=== PATIENT | male | born 1965 | race Caucasian/White ===

== ENCOUNTER 2017-10-02 14:30 | Outpatient (RCR) | payer OTHER, SELFPAY | END 2017-10-26 11:03 | disposition home or self-care (01) | LOC: PT 14:30 | PROVIDERS: Family Provider Nurse Practitioner Family; PCP Nurse Practitioner Family; Visit Provider Nurse Practitioner Family | DX: M54.5 Low back pain (principal); G89.29 Other chronic pain | CPT/HCPCS: 97110; 97163 ==

== ENCOUNTER → 2018-10-07 10:06 | Outpatient (CLI) | payer OTHER, SELFPAY ==
[2018-10-07 11:28] LABS: Prostate Specific Ag Screen 0.6 ng/mL (0.0-4.0)
== END ==
PROVIDERS: Visit Provider Urology
DX: Z12.5 Encounter for screening for malignant neoplasm of prostate (principal)
CPT/HCPCS: 36415; G0103

== ENCOUNTER → 2019-10-24 13:57 | Outpatient (CLI) | payer MEDICAID, SELFPAY ==
[2019-10-24 16:20] LABS: Prostate Specific Ag Screen 0.7 ng/ml (0.0-4.0)
== END ==
PROVIDERS: Visit Provider Urology
DX: Z12.5 Encounter for screening for malignant neoplasm of prostate (principal)
CPT/HCPCS: 36415; G0103

== ENCOUNTER 2020-03-15 10:00 | Outpatient (RCR) | payer MEDICAID, SELFPAY | END 2020-03-29 15:00 | disposition home or self-care (01) | LOC: PT.CARL 10:00 | PROVIDERS: PCP Nurse Practitioner Family; Visit Provider Orthopaedic Surgery Adult Reconstructive Orthopaedic Surgery | DX: M25.561 Pain in right knee (principal) | CPT/HCPCS: 97010; 97014; 97110; 97163; G0283 ==

== ENCOUNTER → 2022-01-21 11:00 | Outpatient (CLI) | payer MEDICAID, SELFPAY ==
[2022-01-21 17:39] LABS: Basophils # 0.8 K/mm3 (0-0.2); Basophils % 13.4 % (0.1-2.0); Eosinophils # 0.1 K/mm3 (0.0-0.4); Eosinophils % 1.4 % (0.1-12.0); Hematocrit 56.4 % (42.0-52.0); Hemoglobin 15.2 g/dL (14.1-18.0); Lymphocytes # 1.8 K/mm3 (0.7-4.5); Lymphocytes % 28.9 % (10-50); Mean Corpuscular HGB Conc 26.9 g/dL (31.8-35.4); Mean Corpuscular Hemoglobin 32.2 pg (27.0-31.2); Mean Corpuscular Volume 119.5 fl (80-94); Mean Platelet Volume 25.7 fl (7.4-10.4); Monocytes # 0.4 K/mm3 (0.1-1.0); Monocytes % 6.7 % (1.7-9.3); Neutrophils # 3.9 K/mm3 (1.8-7.8); Platelet Count 189 K/mm3 (142-424); Red Blood Count 4.72 M/mm3 (4.60-6.20); White Blood Count 6.2 K/mm3 (4.8-10.8)
[2022-01-21 18:55] LABS: Hemoglobin A1C 5.7 % (4.0-6.0)
[2022-01-21 19:46] LABS: Creatinine,Urine Random 19 mg/dL (Not Estab.); Microalbumin < 6.000 mg/L (0-16.7)
[2022-01-21 21:09] LABS: Chloride 100 mmol/L (98-107); Sodium 141 mmol/L (136-145)
[2022-01-21 21:10] LABS: Potassium 4.1 mmoL/L (3.5-5.1)
[2022-01-21 21:12] LABS: Alanine Aminotransferase 20 U/L (12-78); Albumin Level 4.4 g/dl (3.5-5.0); Albumin/Globulin Ratio 1.8 (1.1-1.8); Alkaline Phosphatase 80 U/L (38-126); Anion Gap 14.1 mEq/L (5-15); Aspartate Amino Transferase 26 U/L (17-59); Bilirubin,Total 0.9 mg/dl (0.2-1.3); Blood Urea Nitrogen 11 mg/dl (9-20); Calcium 9.2 mg/dl (8.4-10.2); Carbon Dioxide 31 mmol/L (22.0-30.0); Cholesterol 250 mg/dl (140-200); Estimated Glomerular Filt Rate 88 ml/min (>60); GFR (African American) 106 ML/MIN (>60); Globulin 2.5 g/dL (1.3-3.2); Glucose 88 mg/dl (74-100); Total Protein,Serum 6.9 g/dl (6.3-8.2); Triglycerides 132 mg/dl (30-150); VLDL Cholesterol 26 mg/dL (0-40)
[2022-01-21 21:13] LABS: Chol/HDL Ratio 6.6 (1-3.5); HDL Cholesterol 38 mg/dl (40-60)
[2022-01-21 21:24] LABS: Direct LDL Cholesterol 184.14 mg/dL (100-129)
[2022-01-21 21:44] LABS: Thyroid Stimulating Hormone 1.16 uIU/mL (0.465-4.68)
== END ==
PROVIDERS: PCP Family Medicine; Visit Provider Family Medicine
DX: I10 Essential (primary) hypertension (principal); E11.9 Type 2 diabetes mellitus without complications; R53.83 Other fatigue; E78.5 Hyperlipidemia, unspecified; Z79.84 Long term (current) use of oral hypoglycemic drugs
CPT/HCPCS: 80053; 80061; 82043; 82570; 83036; 84443; 85025

== ENCOUNTER → 2022-07-31 23:31 | Outpatient (CLI) | payer MEDICAID, SELFPAY ==
[2022-07-31 17:22] LABS: Hemoglobin A1C 5.5 % (4.0-6.0)
== END ==
PROVIDERS: PCP Family Medicine; Visit Provider Family Medicine
DX: E11.9 Type 2 diabetes mellitus without complications (principal); Z79.84 Long term (current) use of oral hypoglycemic drugs
CPT/HCPCS: 83036

== ENCOUNTER → 2023-01-29 09:14 | Outpatient (CLI) | payer MEDICAID, SELFPAY ==
[2023-01-29 16:31] LABS: Chloride 103 mmol/L (98-107); Potassium 4.3 mmoL/L (3.5-5.1); Sodium 139 mmol/L (136-145)
[2023-01-29 16:33] LABS: Alanine Aminotransferase 24 U/L (12-78); Alkaline Phosphatase 62 U/L (38-126); Aspartate Amino Transferase 31 U/L (17-59); Bilirubin,Total 1.2 mg/dl (0.2-1.3); Blood Urea Nitrogen 12 mg/dl (9-20); Estimated Glomerular Filt Rate 88 ml/min (>60); GFR (African American) 106 ML/MIN (>60)
[2023-01-29 16:34] LABS: Albumin Level 4.3 g/dl (3.5-5.0); Anion Gap 9.3 mEq/L (5-15); Carbon Dioxide 31 mmol/L (22.0-30.0); Chol/HDL Ratio 3.6 (1-3.5); Cholesterol 122 mg/dl (140-200); Globulin 2.2 g/dL (1.3-3.2); Glucose 106 mg/dl (74-100); HDL Cholesterol 34 mg/dl (40-60); Total Protein,Serum 6.5 g/dl (6.3-8.2); Triglycerides 106 mg/dl (30-150); VLDL Cholesterol 21 mg/dL (0-40)
[2023-01-29 16:50] LABS: Basophils % 0.6 % (0.1-2.0); Eosinophils # 0.2 K/mm3 (0.0-0.4); Eosinophils % 3.7 % (0.1-12.0); Hematocrit 43.6 % (42.0-52.0); Hemoglobin 15.4 g/dL (14.1-18.0); Lymphocytes # 1.8 K/mm3 (0.7-4.5); Lymphocytes % 27.6 % (10-50); Mean Corpuscular HGB Conc 35.4 g/dL (31.8-35.4); Mean Corpuscular Hemoglobin 34.8 pg (27.0-31.2); Mean Corpuscular Volume 98.4 fl (80-94); Mean Platelet Volume 10.6 fl (7.4-10.4); Monocytes # 0.5 K/mm3 (0.1-1.0); Monocytes % 7.5 % (1.7-9.3); Neutrophils % 60.7 % (37.0-80.0); Platelet Count 167 K/mm3 (142-424); Red Blood Count 4.43 M/mm3 (4.60-6.20); Red Cell Distribution Width 13.2 % (11.5-17.5); White Blood Count 6.6 K/mm3 (4.8-10.8)
[2023-01-29 17:04] LABS: Thyroid Stimulating Hormone 1.48 uIU/mL (0.465-4.68)
[2023-01-29 17:39] LABS: Hemoglobin A1C 5.5 % (4.0-6.0)
[2023-01-30 19:58] LABS: Microalbumin/Creatinine Ratio 5.5
[2023-01-30 20:27] LABS: Creatinine,Urine Random 207 mg/dL (Not Estab.)
== END ==
PROVIDERS: PCP Nurse Practitioner Family; Visit Provider Nurse Practitioner Family
DX: E11.9 Type 2 diabetes mellitus without complications (principal); E78.5 Hyperlipidemia, unspecified; I10 Essential (primary) hypertension; Z79.84 Long term (current) use of oral hypoglycemic drugs; Z79.899 Other long term (current) drug therapy
CPT/HCPCS: 80053; 80061; 82043; 82570; 83036; 84443; 85025

== ENCOUNTER → 2023-03-20 10:54 | Outpatient (CLI) | payer MEDICAID, SELFPAY | PROVIDERS: PCP Nurse Practitioner Family; Visit Provider Physician Assistant | DX: R06.02 Shortness of breath; Z01.818 Encounter for other preprocedural examination | CPT/HCPCS: 93306 ==

== ENCOUNTER 2023-03-23 16:52 | Emergency (ER) | payer MEDICAID, SELFPAY ==
[2023-03-23 16:55] VITALS: BP 158/93; PULSE 69; RESP 18; TEMP 36.9; O2SAT 98; BMI 24.3
--- NOTE | 2023-03-23 18:11 | HMH.EDGENADL ---
Discharge Plan Disposition Patient Disposition: Home, Self-Care Prescriptions Prescriptions: No Action aspirin [Adult Low Dose Aspirin] 81 mg tablet,delayed release (DR/EC) 81 mg PO DAILY Ventolin HFA 90 mcg/actuation HFA aerosol inhaler 2 puff INHALATION Q4-6H PRN (Reason: COPD) cetirizine 10 mg tablet 10 mg PO DAILY PRN montelukast 10 mg tablet 10 mg PO DAILY fluticasone propionate [Flonase Allergy Relief] 50 mcg/actuation spray,suspension 2 spray intranasal DAILY Rx Instructions: administer into each nostril Aimovig Autoinjector 140 mg/mL auto-injector 140 mg SQ QMONTH sertraline [Zoloft] 50 mg tablet 50 mg PO DAILY Qty: 30 3RF rosuvastatin [Crestor] 20 mg tablet 20 mg PO DAILY Qty: 30 3RF trazodone 50 mg tablet 50 mg PO HS Qty: 30 3RF omega-3 acid ethyl esters 1 gram capsule 1 cap PO DAILY metoprolol succinate 50 mg tablet extended release 24 hr See Rx Instructions .ROUTE .COMPLEX Qty: 45 3RF Dose Instruction: TAKE 1&1/2 TABLETS BY MOUTH EVERY DAY Rx Instructions: TAKE 1&1/2 TABLETS BY MOUTH EVERY DAY metformin 500 mg tablet See Rx Instructions .ROUTE .COMPLEX Qty: 90 3RF Dose Instruction: 500 MG ORALLY DAILY FOR 90 DAYS Rx Instructions: 500 MG ORALLY DAILY FOR 90 DAYS omeprazole 40 mg capsule,delayed release(DR/EC) See Rx Instructions .ROUTE .COMPLEX Qty: 90 0RF Dose Instruction: TAKE 1 CAPSULE BY MOUTH EVERY DAY Rx Instructions: TAKE 1 CAPSULE BY MOUTH EVERY DAY hydroxyzine HCl 10 mg tablet See Rx Instructions .ROUTE .COMPLEX Qty: 60 1RF Dose Instruction: TAKE 1 TABLET BY MOUTH EVERY 8 HOURS NEEDED Rx Instructions: TAKE 1 TABLET BY MOUTH EVERY 8 HOURS NEEDED Referrals Follow up/Referrals: Chad Renee DO [Staff Physician] - See instructions (possible avascular necrosis) Stewart Santacruz MD [Primary Care Provider] - See instructions Activity Restrictions/Add. Instructions Additional Instructions/Restrictions: Your workup showed concern for something called avascular necrosis of the femoral heads. This needs to be followed up with Dr. Renee with orthopedic surgery. Please take Tylenol and ibuprofen as needed for pain. Please follow-up with your primary care provider. Please return to the emergency department if you develop any new or worsening symptoms or become concerned for your health. Clinical Impressions Clinical Impression: Avascular necrosis of femoral head Qualifiers: Laterality: right Qualified Code(s): M87.051 - Idiopathic aseptic necrosis of right femur Instructions Patient Instructions: DI for Low Back Pain Discharge ED Provider: Carlos Manuel Cody General Adult HPI General Chief complaint: Back Pain/Injury Stated complaint: Lower back and right leg pain,no injury Time Seen by Provider: 03/23/23 18:09 Mode of Arrival: Ambulatory Source of Information: Patient Limitations: No Limitations Description of Symptoms (Recalled from ER Triage Doc. by RN): pt is complaining of right lower back pain and right groin pain since this morning that is sharp in nature. pt has hx of hernia but not kidney stones History of Present Illness HPI narrative: 58-year-old male history as reported below presents with 2 days of right hip/groin/low back pain. Nothing like this happened for. Reports no trauma. Reports no urinary symptoms or fever. Is able to walk on it but with pain. Denies any numbness tingling or weakness. Related Data Home Medications Medication Instructions Recorded Confirmed albuterol sulfate 90 mcg/actuation 2 puff inhalation Q4-6H PRN COPD 10/07/18 03/09/23 aerosol inhaler (Ventolin HFA) aspirin 81 mg tablet,delayed 81 mg PO DAILY HEART 10/07/18 03/09/23 release (Adult Low Dose Aspirin) cetirizine 10 mg tablet 10 mg PO DAILY PRN 01/21/22 03/09/23 erenumab-aooe 140 mg/mL 140 mg SQ QMONTH 01/21/22 03/09/23 subcutaneous auto-injector
--- NOTE | 2023-03-23 18:18 | XR_ITS ---
PROCEDURE INFORMATION: Exam: XR Right Hip Exam date and time: 03/23/2023 6:54 PM Age: 58 years old Clinical indication: Hip pain; Right hip; Prior surgery; Surgery date: 6+ months; Surgery type: Old inguinal hernia repair. ; Additional info: Right hip pain, no known injury. Started early this morning. TECHNIQUE: Imaging protocol: Radiologic exam of the right hip. Views: 2 or 3 views hip with pelvis when performed. COMPARISON: No relevant prior studies available. FINDINGS: Bones/joints: No acute fracture or dislocation. Curvilinear sclerosis with adjacent lucencies along the superior aspects of both femoral heads. No femoral head collapse. Concerning for avascular necrosis. Additional workup recommended with MRI. Soft tissues: Unremarkable. IMPRESSION: 1. No acute fracture or dislocation. 2. Curvilinear sclerosis with adjacent lucencies along the superior aspects of both femoral heads. No femoral head collapse. Concerning for avascular necrosis. Additional workup recommended with MRI.
[2023-03-23 18:31] VITALS: BP 158/83; PULSE 59; O2SAT 96
[2023-03-23 18:40] LABS: Microscopic, Urine URINE MICROSCOPIC (MICROSCOPIC)
[2023-03-23 18:44] LABS: Appearance,Urine CLEAR (Clear); Bilirubin,Urine Negative (Negative); Blood, Urine Negative (Negative); Color,Urine YELLOW (Yellow); Glucose,Urine (UA) Negative (Negative); Ketones,Urine Negative (Negative); Leukocyte Esterase,Urine Negative (Negative); Nitrate,Urine Negative (Negative); Protein,Urine Negative (Negative); Specific Gravity, Urine 1.015 (1.005-1.030); Urobilinogen,Urine 0.2 EU/dl (0.2)
[2023-03-23 18:55] LABS: Squamous Epithelial Cell,Urine Occasional #/hpf (0-5)
--- NOTE | 2023-03-23 19:02 | PC.NURSE ---
pt to xray
--- NOTE | 2023-03-23 20:26 | CT_ITS ---
PROCEDURE INFORMATION: Exam: CT Abdomen And Pelvis With Contrast Exam date and time: 03/23/2023 9:12 PM Age: 58 years old Clinical indication: Pain and abnormal findings; Abnormal radiologic finding of the abdomen; Radiologic exam and body structure: XR hip; Abdominal pain; Other: R inguinal/low back pain; Additional info: R inguinal/low back pain, abnorm xray hip TECHNIQUE: Imaging protocol: Computed tomography of the abdomen and pelvis with contrast. Radiation optimization: All CT scans at this facility use at least one of these dose optimization techniques: automated exposure control; mA and/or kV adjustment per patient size (includes targeted exams where dose is matched to clinical indication); or iterative reconstruction. Contrast material: ISOVUE; Contrast volume: 75 ml; Contrast route: IV; REPORTING DATA: Count of CT and Cardiac NM exams in prior 12 months: This patient has received 0 known CTs and 0 known cardiac nuclear medicine studies in the 12 months prior to the current study. COMPARISON: CR XR HIP RT 2-3V W/PELVIS 03/23/2023 6:54 PM FINDINGS: Liver: Normal. No mass. Gallbladder and bile ducts: Normal. No calcified stones. No ductal dilation. Pancreas: Normal. No ductal dilation. Spleen: Normal. No splenomegaly. Adrenal glands: Normal. No mass. Kidneys and ureters: Normal. No hydronephrosis. Stomach and bowel: Unremarkable. No obstruction. No mucosal thickening. Appendix: No evidence of appendicitis. Intraperitoneal space: Unremarkable. No free air. No significant fluid collection. Vasculature: Unremarkable. No abdominal aortic aneurysm. Lymph nodes: Unremarkable. No enlarged lymph nodes. Urinary bladder: Unremarkable as visualized. Reproductive: Unremarkable as visualized. Bones/joints: As seen on earlier radiograph, there are serpiginous lucencies with sclerotic rim along the superior femoral heads, most likely avascular necrosis. No evidence of femoral head collapse. Soft tissues: Left fat containing inguinal hernia. Other findings: Previous granulomatous exposure. IMPRESSION: As seen on earlier radiograph, there are serpiginous lucencies with sclerotic rim along the superior femoral heads, most likely avascular necrosis.
[2023-03-23 20:36] LABS: Basophils # 0.1 K/mm3 (0-0.2); Basophils % 0.6 % (0.1-2.0); Eosinophils # 0.1 K/mm3 (0.0-0.4); Eosinophils % 1.1 % (0.1-12.0); Hematocrit 44.7 % (42.0-52.0); Hemoglobin 15.3 g/dL (14.1-18.0); Lymphocytes # 1.3 K/mm3 (0.7-4.5); Lymphocytes % 13.9 % (10-50); Mean Corpuscular HGB Conc 34.1 g/dL (31.8-35.4); Mean Corpuscular Hemoglobin 33.1 pg (27.0-31.2); Mean Corpuscular Volume 97.1 fl (80-94); Mean Platelet Volume 9.6 fl (7.4-10.4); Monocytes # 0.5 K/mm3 (0.1-1.0); Monocytes % 5.6 % (1.7-9.3); Neutrophils # 7.1 K/mm3 (1.8-7.8); Neutrophils % 78.8 % (37.0-80.0); Platelet Count 195 K/mm3 (142-424); Red Blood Count 4.61 M/mm3 (4.60-6.20); Red Cell Distribution Width 13.1 % (11.5-17.5)
[2023-03-23 20:52] LABS: Chloride 103 mmol/L (98-107)
[2023-03-23 20:53] LABS: Potassium 4.6 mmoL/L (3.5-5.1); Sodium 138 mmol/L (136-145)
[2023-03-23 20:55] LABS: Alanine Aminotransferase 22 U/L (12-78); Alkaline Phosphatase 83 U/L (38-126); Aspartate Amino Transferase 27 U/L (17-59); Blood Urea Nitrogen 13 mg/dl (9-20); Creatinine Clearance Estimated 103 mL/min (50-200); Estimated Glomerular Filt Rate 77 ml/min (>60); GFR (African American) 94 ML/MIN (>60)
[2023-03-23 20:56] LABS: Albumin Level 4.2 g/dl (3.5-5.0); Albumin/Globulin Ratio 1.8 (1.1-1.8); Anion Gap 7.6 mEq/L (5-15); Calcium 8.8 mg/dl (8.4-10.2); Carbon Dioxide 32 mmol/L (22.0-30.0); Globulin 2.4 g/dL (1.3-3.2); Glucose 111 mg/dl (74-100); Total Protein,Serum 6.6 g/dl (6.3-8.2)
[2023-03-23 22:33] VITALS: BP 152/102; PULSE 73; RESP 18; TEMP 36.7; O2SAT 96
== END 2023-03-23 22:35 | disposition home or self-care (01) ==
PROVIDERS: Emergency Provider Emergency Medicine; PCP Family Medicine
DX: M87.051 Idiopathic aseptic necrosis of right femur (principal); M54.50 Low back pain, unspecified; I20.9 Angina pectoris, unspecified; E11.9 Type 2 diabetes mellitus without complications; E78.5 Hyperlipidemia, unspecified; I10 Essential (primary) hypertension; F17.210 Nicotine dependence, cigarettes, uncomplicated
CPT/HCPCS: 73502; 74177; 80053; 81001; 85025; 96374; 99285; Q9967

== ENCOUNTER 2023-04-14 12:01 | Outpatient (CLI) | payer MEDICAID, SELFPAY ==
--- NOTE | 2023-04-14 | CA_ITS ---
APPROVED REPORT Exam: Pharmacologic Technologist: Harmony Mcclure, Ht: 6 ft 3 in Wt: 199 lbs BSA: 2.19 m2 HR: 60 bpm BP: 143/90 mmHg Rhythm: NSR Medical History Medical History: HTN, Hyperlipidemia, Smoking Medications: Omeprazole,,,,, Aspirin,,,,, Metformin,,,,, Trazadone,,,,, Flonase,,,,, Zoloft,,,,, Crestor,,,,, Albuterol,,,,, Montelukast,,,,, CetIRIZINE,,,,, OmeGA-3,,,,, Hydroxyzine HCI,,,,, Allergies: PCN Cardiac Risk Factors: HTN, Hyperlipidemia, Smoking Stress Test Details Test: LEXISCAN HR Resting HR: 57 bpm Max Heart Rate (APMHR): 164 bpm Max HR Achieved: 112 bpm Target HR (85% APMHR): 139 bpm % of APMHR: 68 Recovery HR: 77 bpm BP Resting BP: 143/90 mmHg Max BP: 169/100 mmHg Recovery BP: 150.0/89.0 mmHg ECG Resting ECG: NSR Stress ECG: No significant ST changes Arrhythmia: PVCs Clinical Exercise duration: 04:05 min Highest Stage Achieved: Exercise capacity: 1.0 METs Stress ECG Conclusion PT HAD DYSPNEA AND NAUSEA PVCS NO SIGNIFICANT ST CHANGES CONCLUSION: EKG PORTION OF THE TEST IS UNREMARKABLE DUE TO LEXISCAN INFUSION. MYOVIEW IMAGES ARE REPORTED SEPARATELY Test Summary REST 01:27 . . 57 . 143/ 90 . . Stage 1 . . . . . . . Myoview Injected Stage 1 . . . . . . . Shortness of Breath Stage 1 01:00 . . 95 . . . . Stage 2 . . . . . . . Nausea Stage 2 01:00 . . 90 . 135/ 85 . . Stage 3 01:00 . . 97 . . . . Stage 4 01:00 . . 87 . 169/100 . . Stage 4 01:05 . . 87 . 153/100 . Stop exercise at 04:05 RECOVERY 01:00 . . 81 . . . . RECOVERY 02:00 . . 76 . 145/ 96 . . RECOVERY 03:00 . . 82 . 146/ 89 . . RECOVERY 04:00 . . 80 . 145/ 89 . . RECOVERY 04:38 . . 78 . 150/ 89 . . Electronically signed by : Dina Duron MD 04/14/2023 18:09:20
[2023-04-14] MEDS: SODIUM CHLORIDE 0.9% 10ML SYR (RAD ONLY) 10 ML IV ×2 (01:35→12:10)
--- NOTE | 2023-04-14 12:02 | NM_ITS ---
APPROVED REPORT Exam: Nuclear Stress Test Indication: soa..pre-op Patient Location: Outpatient Stress Tech: Ahrmony Mcclure NM Tech:Loni Sherman ARRT, RT (R)(N) Ht: 6 ft 3 in Wt: 200 lbs HR: 60 bpm BP: 143/90 mmHg BSA: 2.19 m2 Rhythm: NSR TID: 1.10 BMI: 24.9 History: dyspnea, pre-op assessment Procedure: Patient received 0.4 mg of intravenous Lexiscan, resting heart rate 60 bpm, resting blood pressure 143/90 mmHg, with Lexiscan maximum heart rate achieved was 96 bpm which is 85 % of the maximum predicted heart rate and blood pressure was 121/79 mmHg. With Lexiscan, patient denied any complaint of chest pain. Cardiac Stress and Resting SPECT Images: Cardiac Stress and Resting SPECT images were obtained using technetium 99m Myoview 31.8 mCi stress and 10.62 mCi at rest. Resting and stress imaging in supine and prone positions demonstrate no evidence of fixed or reversible perfusion defects. Gated imaging demonstrates normal global and regional LV systolic function. LVEF is calculated at 52%. Conclusion: No evidence of fixed or reversible perfusion defects. Gated imaging demonstrates normal global and regional LV systolic function. LVEF is calculated at 52%. Electronically signed by : Dina Duron MD 04/14/2023 18:10:47
[2023-04-14] MEDS: REGADENOSON 0.4MG/5ML SYRINGE 0.400000000000000022 MG IV (12:10)
[2023-04-14] MEDS: ISOTOPE MYOVIEW (PER STUDY) 1 DOSE IV (14:05)
== END 2023-04-14 23:59 ==
LOC: RAD 12:02
PROVIDERS: PCP Family Medicine; Visit Provider Nurse Practitioner
DX: I20.89 Other forms of angina pectoris (principal); R06.09 Other forms of dyspnea; I10 Essential (primary) hypertension; E78.5 Hyperlipidemia, unspecified; Z72.0 Tobacco use
CPT/HCPCS: 78452; 93017; 93018; A9502; J2785

== ENCOUNTER 2023-04-23 12:43 | Outpatient (CLI) | payer MEDICAID, SELFPAY ==
--- NOTE | 2023-04-23 12:44 | MR_ITS ---
FINAL REPORT CLINICAL HISTORY: Rt Hip Pain FINDINGS: Multiplanar MR imaging of the right hip was performed without contrast. There is no evidence of fracture or dislocation. There is abnormal signal at the bilateral superior femoral heads consistent with avascular necrosis measuring up to 40 mm in AP dimension on the right and similar size on the left. No labral tear is identified. Right hip joint effusion is seen. There is mild edema adjacent to the greater trochanter, may represent greater trochanteric bursitis. The tendons are intact. The musculature is intact. No soft tissue mass or cyst is identified. IMPRESSION: Avascular necrosis of the superior femoral heads bilaterally. Findings may represent greater trochanteric bursitis. Reviewed, Interpreted and Dictated by Justus Payne III, MD Transcribed by Chen Betancourt Authenticated and [facility]
== END 2023-04-23 23:59 ==
LOC: RAD 12:44
PROVIDERS: PCP Family Medicine; Visit Provider Orthopaedic Surgery
DX: M87.051 Idiopathic aseptic necrosis of right femur (principal)
CPT/HCPCS: 73721

== ENCOUNTER 2023-07-28 16:51 | Outpatient (CLI) | payer MEDICAID, SELFPAY ==
[2023-07-28 17:43] LABS: Basophils # 0.1 K/mm3 (0-0.2); Basophils % 1.3 % (0.1-2.0); Eosinophils # 0.2 K/mm3 (0.0-0.4); Eosinophils % 2.3 % (0.1-12.0); Hematocrit 48.5 % (42.0-52.0); Lymphocytes # 1.4 K/mm3 (0.7-4.5); Lymphocytes % 20.1 % (10-50); Mean Corpuscular HGB Conc 32.9 g/dL (31.8-35.4); Mean Corpuscular Volume 100.1 fl (80-94); Monocytes # 0.5 K/mm3 (0.1-1.0); Monocytes % 6.6 % (1.7-9.3); Neutrophils # 4.8 K/mm3 (1.8-7.8); Neutrophils % 69.6 % (37.0-80.0); Platelet Count 211 K/mm3 (142-424); Red Blood Count 4.84 M/mm3 (4.60-6.20); Red Cell Distribution Width 13.1 % (11.5-17.5); White Blood Count 6.8 K/mm3 (4.8-10.8)
[2023-07-28 18:39] LABS: Hemoglobin A1C 5.9 % (4.0-6.0)
[2023-07-28 20:19] LABS: Alanine Aminotransferase 14 U/L (12-78); Albumin Level 4.2 g/dl (3.5-5.0); Albumin/Globulin Ratio 1.8 (1.1-1.8); Alkaline Phosphatase 78 U/L (38-126); Anion Gap 10.5 mEq/L (5-15); Aspartate Amino Transferase 23 U/L (17-59); Bilirubin,Total 1.1 mg/dl (0.2-1.3); Blood Urea Nitrogen 10 mg/dl (9-20); Calcium 9.8 mg/dl (8.4-10.2); Carbon Dioxide 30 mmol/L (22.0-30.0); Chloride 107 mmol/L (98-107); Chol/HDL Ratio 9.1 (1-3.5); Cholesterol 255 mg/dl (140-200); Estimated Glomerular Filt Rate 69 ml/min (>60); GFR (African American) 84 ML/MIN (>60); Globulin 2.3 g/dL (1.3-3.2); Glucose 107 mg/dl (74-100); HDL Cholesterol 28 mg/dl (40-60); Potassium 4.5 mmoL/L (3.5-5.1); Sodium 143 mmol/L (136-145); Total Protein,Serum 6.5 g/dl (6.3-8.2); Triglycerides 197 mg/dl (30-150); VLDL Cholesterol 39 mg/dL (0-40)
[2023-07-28 20:29] LABS: Direct LDL Cholesterol 154.81 mg/dL (100-129)
[2023-07-28 20:51] LABS: Thyroid Stimulating Hormone 1.74 uIU/mL (0.465-4.68)
== END 2023-07-28 23:59 | disposition home or self-care (01) ==
LOC: LAB.DROPOF 16:51
PROVIDERS: PCP Nurse Practitioner Family; Visit Provider Nurse Practitioner Family
DX: I10 Essential (primary) hypertension (principal); E78.5 Hyperlipidemia, unspecified; E11.9 Type 2 diabetes mellitus without complications; Z79.84 Long term (current) use of oral hypoglycemic drugs
CPT/HCPCS: 80053; 80061; 83036; 84443; 85025

== ENCOUNTER 2023-09-24 15:03 | Emergency (ER) | payer MEDICAID, SELFPAY ==
[2023-09-24] VITALS (7 sets, daily range): BP systolic 136–150; BP diastolic 89–97; PULSE 68–84; RESP 13–20; TEMP 36.7–36.8; O2SAT 94–98; BMI 22.5
--- NOTE | 2023-09-24 15:04 | ECG_ITS ---
APPROVED REPORT Exam: Resting ECG HR:72 bpm ECG Measurements Heart Rate 72 AXES AL 197 P 63 QRSd 102 QRS 71 QT 353 T 56 QTc 377 Conclusion SINUS RHYTHM NORMAL ECG Electronically signed by : MAXWELL PERSAUD, 09/24/2023 19:08:09
--- NOTE | 2023-09-24 15:11 | PC.NURSE ---
in room talking with patient at this time.
--- NOTE | 2023-09-24 15:13 | XR_ITS ---
FINAL REPORT CLINICAL HISTORY: cp L sided FINDINGS: SINGLE-VIEW CHEST The heart size is normal. The mediastinum is normal. There is mild right base atelectasis or scar. There is no pneumothorax. IMPRESSION: Right base atelectasis versus scar. Reviewed, Interpreted and Dictated by Justus Payne III, MD Transcribed by Chen Betancourt Authenticated and [facility]
--- NOTE | 2023-09-24 15:17 | HMH.EDCP ---
Discharge Plan Disposition Patient Disposition: Home, Self-Care Chief Complaint: Chest Pain Prescriptions Prescriptions: No Action aspirin [Adult Low Dose Aspirin] 81 mg tablet,delayed release (DR/EC) 81 mg PO DAILY Ventolin HFA 90 mcg/actuation HFA aerosol inhaler 2 puff INHALATION Q4-6H PRN (Reason: COPD) cetirizine 10 mg tablet 10 mg PO DAILY PRN montelukast 10 mg tablet 10 mg PO DAILY fluticasone propionate [Flonase Allergy Relief] 50 mcg/actuation spray,suspension 2 spray intranasal DAILY Rx Instructions: administer into each nostril sertraline [Zoloft] 50 mg tablet 50 mg PO DAILY Qty: 30 3RF rosuvastatin [Crestor] 20 mg tablet 20 mg PO DAILY Qty: 30 3RF trazodone 50 mg tablet 50 mg PO HS Qty: 30 3RF omega-3 acid ethyl esters 1 gram capsule 1 cap PO DAILY cyclobenzaprine 5 mg tablet 5 mg PO BID PRN (Reason: muscle spasm) Qty: 20 0RF loratadine 10 mg tablet 10 mg PO DAILY Qty: 30 2RF metformin 500 mg tablet See Rx Instructions .ROUTE .COMPLEX Qty: 90 3RF Dose Instruction: 500 MG ORALLY DAILY FOR 90 DAYS Rx Instructions: 500 MG ORALLY DAILY FOR 90 DAYS metoprolol succinate 50 mg tablet extended release 24 hr See Rx Instructions .ROUTE .COMPLEX Qty: 45 3RF Dose Instruction: TAKE 1&1/2 TABLETS BY MOUTH EVERY DAY Rx Instructions: TAKE 1&1/2 TABLETS BY MOUTH EVERY DAY hydroxyzine HCl 10 mg tablet See Rx Instructions .ROUTE .COMPLEX Qty: 60 1RF Dose Instruction: TAKE 1 TABLET BY MOUTH EVERY 8 HOURS NEEDED Rx Instructions: TAKE 1 TABLET BY MOUTH EVERY 8 HOURS NEEDED omeprazole 40 mg capsule,delayed release(DR/EC) See Rx Instructions .ROUTE .COMPLEX Qty: 90 0RF Dose Instruction: TAKE 1 CAPSULE BY MOUTH EVERY DAY Rx Instructions: TAKE 1 CAPSULE BY MOUTH EVERY DAY Referrals Follow up/Referrals: Bryan Carlisle MD [Staff Physician] - See instructions Activity Restrictions/Add. Instructions Additional Instructions/Restrictions: At this time it was felt you are safe to be discharged home from the emergency department. If new or worsening symptoms please not hesitate to return for continued evaluation and call and schedule an appoint with Dr. Carlisle as soon as you are able. Clinical Impressions Clinical Impression: Chest pain Discharge ED Provider: Marky Graff HPI General Chief Complaint: Chest Pain Stated Complaint: chest pain Time Seen by Provider: 09/24/23 15:05 History of Present Illness HPI narrative: Patient is a 58-year-old male with past medical history of hypertension, hyperlipidemia, previous chest pain who presents emergency department for evaluation of chest pain. Onset was acute, occurring 4 days ago, waxing and waning however persists, seems to be better in certain positions than others, radiates from his left chest through to his left shoulder blade. No cough, no trauma, no other acute complaints at this time. Related Data Home Medications Medication Instructions Recorded Confirmed albuterol sulfate 90 mcg/actuation 2 puff inhalation Q4-6H PRN COPD 10/07/18 07/28/23 aerosol inhaler (Ventolin HFA) aspirin 81 mg tablet,delayed 81 mg PO DAILY HEART 10/07/18 07/28/23 release (Adult Low Dose Aspirin) cetirizine 10 mg tablet 10 mg PO DAILY PRN 01/21/22 07/28/23 fluticasone propionate 50 2 spray intranasal DAILY 01/21/22 07/28/23 mcg/actuation nasal spray,suspension (Flonase Allergy Relief) montelukast 10 mg tablet 10 mg PO DAILY 01/21/22 07/28/23 omega-3 acid ethyl esters 1 gram 1 cap PO DAILY 01/29/23 07/28/23 capsule Previous Rx's Medication Instructions Recorded rosuvastatin 20 mg tablet (Crestor) 20 mg PO DAILY #30 tabs 11/19/22 sertraline 50 mg tablet (Zoloft) 50 mg PO DAILY #30 tabs 11/19/22 trazodone 50 mg tablet 50 mg PO HS #30 tabs 11/19/22 metformin 500 mg tablet See Rx Instructions .Route 12/17/22 .COMPLEX #90 tabs metoprolol succinate 50 mg See Rx Instructions .Route 03/30/23 tablet,extended release 24 hr .COMPLEX #45 tabs cyclobenzaprine 5 mg tablet 5 mg PO BID PRN muscle spasm #20 04/02/23 tabs loratadine 10 mg tablet 10 mg PO DAILY #30 tabs 05/28/23 hydroxyzine HCl 10 mg tablet See Rx Instructions .Route 06/17/23 .COMPLEX #60 tabs omeprazole 40 mg capsule,delayed See Rx Instructions .Route 09/09/23 release .COMPLEX #90 caps Allergies Allergy/AdvReac Type Severity Reaction Status Date / Time penicillin G Allergy Mild I-RASH Verified 07/28/23 08:47 [facility] Disclaimer: The information contained in this section may have been updated after the patient was seen, as this information can be updated by other users. Medical History Encounter for pre-operative cardiovascular clearance Atypical angina Exertional dyspnea Depression Hyperlipidemia Migraines Hypertension Diabetes mellitus Surgical History History of colonoscopy Hx of cardiac cath H/O endoscopy History of placement of ear tubes H/O hernia repair H/O right knee surgery Family History Mother Cancer Social History Smoking Status: Never smoker years smoked: 40 alcohol intake: never substance use type: marijuana current occupational status: disabled Travel in the last 8 weeks: None household members: children housing: apartment ROS Obtained: Yes Systems reviewed as appropriate & no additional complaints except as documented Physical Exam General General appearance: alert and in no apparent distress Head Head exam: atraumatic and normocephalic Eye Eye exam: Present PERRL ENT ENT exam: Present mucous membranes moist Neck Neck exam: Present normal inspection Chest Chest inspection: Present normal inspection and symmetric chest wall rise Respiratory Respiratory exam: Present normal lung sounds bilaterally; Absent respiratory distress Cardiovascular Cardiovascular exam: Present regular rate and normal rhythm Abdominal Exam Abdominal exam: Present soft; Absent tenderness Extremities Exam Extremities exam: Present normal inspection Neurological Exam Neurological exam: Present alert Psychiatric Psychiatric exam: Present normal affect Skin Skin exam: Present warm and dry HEART Score HEART Score HEART Score assessment performed?: Yes History (anamnesis): Moderately suspicious ECG: Normal Age: 45-65 years Risk factors: Atherosclerosis history Troponin: </= normal limit HEART Score: 4 Critical Care Critical Care Time Critical Care Time: No Medical Decision Making [place] Inquiry Pt receiving controlled substance: No Vital Signs Vital Signs: 09/24/23 15:08 09/24/23 15:30 09/24/23 16:00 Temperature 98.2 F Temperature Source Oral Pulse Rate 70 Pulse Rate [Left Radial] 83 Respiratory Rate 20 15 18 Blood Pressure 148/95 H 147/94 H Blood Pressure [Right Arm] 142/91 H Blood Pressure Mean [Right Arm] 108 02 Sat by Pulse Oximetry 97 94 L 96 Oxygen Delivery Method Room Air 09/24/23 16:30 09/24/23 17:00 09/24/23 17:30 Temperature Temperature Source Pulse Rate 76 69 68 Pulse Rate [Left Radial] Respiratory Rate 18 13 15 Blood Pressure 150/97 H 136/90 143/93 H Blood Pressure [Right Arm] Blood Pressure Mean [Right Arm] 02 Sat by Pulse Oximetry 98 97 95 Oxygen Delivery Method Lab Data Labs: Lab Results 09/24/23 15:10: WBC 7.1, RBC 4.64, Hgb 15.4, Hct 46.4, MCV 100.1 H, MCH 33.3 H, MCHC 33.2, RDW 13.3, Plt Count 203, MPV 8.5, Neut % (Auto) 73.8, Lymph % (Auto) 19.3, [place] % (Auto) 5.1, Eos % (Auto) 0.4, Baso % (Auto) 1.4, Neut # (Auto) 5.3, Lymph # (Auto) 1.4, [place] # (Auto) 0.4, Eos # (Auto) 0.0, Baso # (Auto) 0.1, D-Dimer 0.35, Sodium 139, Potassium 4.1, Chloride 103, Carbon Dioxide 28, Anion Gap 12.1, BUN 12, Creatinine 1.00, Estimated Creat Clear 95, Estimated GFR 77, Est GFR ( Amer) 94, Glucose 109 H, Calcium 9.6, Total Bilirubin 1.4 H, AST 26, ALT 21, Alkaline Phosphatase 62, Troponin I < 0.01, Total Protein 7.1, Albumin 4.5, Globulin 2.6, Albumin/Globulin Ratio 1.7 09/24/23 17:11: Troponin I < 0.01 09/24/23 15:10 09/24/23 15:10 Response Orders (Tests/Meds): ED MEDICATIONS Discontinued Medications Generic Name Dose Route Start Last Admin Trade Name Freq PRN Reason Stop Dose Admin Aspirin 324 mg 09/24/23 15:13 09/24/23 15:18 Aspirin 81mg Chewable Tablet PO 09/24/23 15:14 Not Given ONCE ONE ORDERS Category Date Time Status CXR --portable [XR chest portable] Stat Exams 09/24/23 15:13 Taken CBC w/Auto Diff [Complete Blood Count Auto Diff] Stat Lab 09/24/23 15:10 Completed CMP [Comprehensive Metabolic Panel] Stat Lab 09/24/23 15:10 Completed D-Dimer Stat Lab 09/24/23 15:10 Completed Trop I [Troponin I] Stat Lab 09/24/23 15:10 Completed Troponin I Q3H Lab 09/24/23 17:11 Completed Troponin I Q3H Lab 09/24/23 21:15 Ordered ECG Data Tracing #1: ECG Narrative: Independently interpreted by me, rate 72, rhythm is regular, axis is normal, no ST elevation in anatomical contiguous leads, QTc 377. MDM Narrative Medical Decision Narrative: In summary patient is a 58-year-old male past medical history described above who presents emergency department for evaluation of chest pain. Patient is hemodynamically stable nontoxic-appearing upon arrival, afebrile. Differential diagnosis includes ACS, musculoskeletal chest pain, aortic dissection, among others. Workup be conducted with hematologic labs, chest x-ray, EKG, serial troponins, D-dimer. Initial inventions include aspirin. Initial workup reviewed by me, hematologic labs are nonactionable, initial troponin undetectably low. D-dimer excludes aortic dissection per ADDRS rule. Chest x-ray informally interpreted by me, no dense lobar opacities or large pneumothorax. The patient was placed in observation status at 1643. Medical necessity for observational status is serial troponins. The patient was provided serial reevaluations and cardiac monitoring while awaiting results. Serial troponins are nonactionable. Upon repeat evaluation patient was hemodynamically stable and resting in bed. Patient is appropriate for discharge with rapid outpatient follow-up with cardiology and was given return precautions. Total time in observation 1 hour and 13 minutes.
[2023-09-24 15:25] LABS: Basophils # 0.1 K/mm3 (0-0.2); Basophils % 1.4 % (0.1-2.0); Eosinophils % 0.4 % (0.1-12.0); Hematocrit 46.4 % (42.0-52.0); Hemoglobin 15.4 g/dL (14.1-18.0); Lymphocytes # 1.4 K/mm3 (0.7-4.5); Lymphocytes % 19.3 % (10-50); Mean Corpuscular HGB Conc 33.2 g/dL (31.8-35.4); Mean Corpuscular Hemoglobin 33.3 pg (27.0-31.2); Mean Corpuscular Volume 100.1 fl (80-94); Mean Platelet Volume 8.5 fl (7.4-10.4); Monocytes # 0.4 K/mm3 (0.1-1.0); Monocytes % 5.1 % (1.7-9.3); Neutrophils # 5.3 K/mm3 (1.8-7.8); Neutrophils % 73.8 % (37.0-80.0); Platelet Count 203 K/mm3 (142-424); Red Blood Count 4.64 M/mm3 (4.60-6.20); Red Cell Distribution Width 13.3 % (11.5-17.5); White Blood Count 7.1 K/mm3 (4.8-10.8)
[2023-09-24 15:29] LABS: Alanine Aminotransferase 21 U/L (12-78); Albumin Level 4.5 g/dl (3.5-5.0); Albumin/Globulin Ratio 1.7 (1.1-1.8); Alkaline Phosphatase 62 U/L (38-126); Anion Gap 12.1 mEq/L (5-15); Aspartate Amino Transferase 26 U/L (17-59); Bilirubin,Total 1.4 mg/dl (0.2-1.3); Blood Urea Nitrogen 12 mg/dl (9-20); Calcium 9.6 mg/dl (8.4-10.2); Carbon Dioxide 28 mmol/L (22.0-30.0); Chloride 103 mmol/L (98-107); Creatinine Clearance Estimated 95 mL/min (50-200); Estimated Glomerular Filt Rate 77 ml/min (>60); GFR (African American) 94 ML/MIN (>60); Globulin 2.6 g/dL (1.3-3.2); Glucose 109 mg/dl (74-100); Potassium 4.1 mmoL/L (3.5-5.1); Sodium 139 mmol/L (136-145); Total Protein,Serum 7.1 g/dl (6.3-8.2)
[2023-09-24 15:34] LABS: D-Dimer 0.35 ug/mL (0.0-0.5)
[2023-09-24 15:56] LABS: Troponin I < 0.01 ng/ml (0.00-0.034)
[2023-09-24 17:51] LABS: Troponin I < 0.01 ng/ml (0.00-0.034)
== END 2023-09-24 18:12 | disposition home or self-care (01) ==
PROVIDERS: Emergency Provider Emergency Medicine; PCP Family Medicine
DX: R07.89 Other chest pain (principal); I10 Essential (primary) hypertension; E78.5 Hyperlipidemia, unspecified; E11.9 Type 2 diabetes mellitus without complications; F33.9 Major depressive disorder, recurrent, unspecified; Z79.84 Long term (current) use of oral hypoglycemic drugs
CPT/HCPCS: 71045; 80053; 84484; 85025; 85378; 93005; 99284

== ENCOUNTER 2023-09-29 18:00 | Outpatient (CLI) | payer MEDICAID, SELFPAY ==
[2023-09-30 14:13] LABS: HIV (1&2) Antibody Rapid NONREACTIVE
[2023-10-01 06:12] LABS: HCV Ab Non Reactive (Non Reactive)
== END 2023-09-29 23:59 | disposition home or self-care (01) ==
LOC: LAB.DROPOF 09-30 08:17
PROVIDERS: PCP Nurse Practitioner Family; Visit Provider Nurse Practitioner Family
DX: Z11.59 Encounter for screening for other viral diseases (principal)

== ENCOUNTER 2023-10-07 09:51 | Outpatient (CLI) | payer MEDICAID, SELFPAY ==
--- NOTE | 2023-10-07 09:53 | XR_ITS ---
FINAL REPORT CLINICAL HISTORY: lt shoulder pain FINDINGS: Two views show no evidence of acute displaced fracture or dislocation of the visualized bony architecture. There are mild degenerative changes of the glenohumeral joint. IMPRESSION: Mild degenerative changes of the glenohumeral joint. Reviewed, Interpreted and Dictated by Martha Tompkins MD Transcribed by Chen Betancourt Authenticated and [facility]
== END 2023-10-07 23:59 | disposition home or self-care (01) ==
LOC: RAD 09:51
PROVIDERS: PCP Family Medicine; Visit Provider Physician Assistant
DX: M25.512 Pain in left shoulder (principal)
CPT/HCPCS: 73030

== ENCOUNTER 2023-10-29 11:30 | Outpatient (CLI) | payer MEDICAID, SELFPAY ==
[2023-10-29 11:33] LABS: MANUAL DIFFERENTIAL MANUAL DIFFERENTIAL (MANUAL DIFF)
[2023-10-29 12:23] LABS: Basophils # 0.1 K/mm3 (0-0.2); Basophils % 1.2 % (0.1-2.0); Eosinophils # 0.4 K/mm3 (0.0-0.4); Eosinophils % 5.8 % (0.1-12.0); Hematocrit 42.9 % (42.0-52.0); Hemoglobin 14.6 g/dL (14.1-18.0); Lymphocytes # 1.7 K/mm3 (0.7-4.5); Lymphocytes % 22.1 % (10-50); Mean Corpuscular Hemoglobin 33.3 pg (27.0-31.2); Mean Platelet Volume 8.5 fl (7.4-10.4); Monocytes # 0.6 K/mm3 (0.1-1.0); Monocytes % 8.4 % (1.7-9.3); Neutrophils # 4.7 K/mm3 (1.8-7.8); Neutrophils % 62.5 % (37.0-80.0); Platelet Count 239 K/mm3 (142-424); Red Blood Count 4.37 M/mm3 (4.60-6.20); Red Cell Distribution Width 13.6 % (11.5-17.5); White Blood Count 7.5 K/mm3 (4.8-10.8)
[2023-10-29 12:47] LABS: Alanine Aminotransferase 27 U/L (12-78); Albumin Level 4.5 g/dl (3.5-5.0); Alkaline Phosphatase 66 U/L (38-126); Anion Gap 10.6 mEq/L (5-15); Aspartate Amino Transferase 26 U/L (17-59); Bilirubin,Indirect 1.3 mg/dL (0.0-0.9); Bilirubin,Total 1.3 mg/dl (0.2-1.3); Bilirubin,Unconjugated 1.5 mg/dL (0.0-1.1); Blood Urea Nitrogen 15 mg/dl (9-20); Calcium 10.2 mg/dl (8.4-10.2); Carbon Dioxide 32 mmol/L (22.0-30.0); Chloride 101 mmol/L (98-107); Chol/HDL Ratio 3.4 (1-3.5); Cholesterol 175 mg/dl (140-200); Estimated Glomerular Filt Rate 63 ml/min (>60); GFR (African American) 76 ML/MIN (>60); Glucose 85 mg/dl (74-100); HDL Cholesterol 52 mg/dl (40-60); Potassium 4.6 mmoL/L (3.5-5.1); Sodium 139 mmol/L (136-145); Total Protein,Serum 6.8 g/dl (6.3-8.2); Triglycerides 174 mg/dl (30-150); VLDL Cholesterol 35 mg/dL (0-40)
[2023-10-29 12:58] LABS: Direct LDL Cholesterol 78.88 mg/dL (100-129)
[2023-10-29 14:34] LABS: Eosinophils % 8 % (0-3); Lymphocytes % 29 % (10-50); Monocytes % 8 % (2-9); Neutrophils % 55 % (42-76); Total Cells Counted 100
[2023-10-29 14:35] LABS: Platelet Estimate Normal; RBC Morphology Normal
== END 2023-10-29 23:59 | disposition home or self-care (01) ==
LOC: LAB 11:30
PROVIDERS: PCP Family Medicine; Visit Provider Physician Assistant
DX: R07.9 Chest pain, unspecified (principal); I20.89 Other forms of angina pectoris; I10 Essential (primary) hypertension
CPT/HCPCS: 36415; 80048; 80061; 80076; 85007; 85014; 85018; 85048; 85049

== ENCOUNTER 2023-11-03 08:25 | Outpatient (CLI) | payer MEDICAID, SELFPAY ==
[2023-11-02 13:15] VITALS: BMI 24.6
[2023-11-03] VITALS (12 sets, daily range): BP systolic 73–149; BP diastolic 40–98; PULSE 55–71; RESP 16–26; TEMP 36.5; O2SAT 90–100; BMI 24.6
--- NOTE | 2023-11-03 08:25 | CT_ITS ---
APPROVED REPORT Bisque Cleaner: CLINICAL INDICATION Chest Pain TECHNIQUE Image Acquisition: A 128 slice MDCT scanner ([employer] View) was used for data acquisition. A noncontrast coronary calcium scan was performed. A CT attenuation threshold of 130 Hounsfield units (HU) was used for the detection of calcium in contiguous voxels of 1 sq mm in area to be counted as individual lesions. Bolus tracking in the ascending aorta with a threshold of 180 HU was performed. Immediately afterwards, ECG synchronized cardiac CT was then performed from the cardiac base to apex using retrospective gating with ECG tube current modulation. A total of 85 mL of Isovue 370 mg/mL contrast medium was administered at 5 mL/sec followed by a saline flush using a biphasic injection protocol. A tube voltage of 120 KVp was used. The patient received the following medications prior to the cardiac CT. 25 mg of oral metoprolol 0.8 mg of sublingual nitroglycerin The average heart rate at the time of acquisition was 61 bpm and regular. Image Reconstruction Transaxial images were reconstructed at 0.67 mm slide thickness. Data was reviewed interactively on an advanced workstation capable of 2 and 3-dimensional displays in all conventional reconstruction formats, including multiplanar reformations, maximum intensity projections, curved multiplanar reformations, and volume rendered reconstructions. When applicable, selected routine images describing the relevant coronary anatomy and pathology were saved and sent to PACS. Complications None Technical Quality Overall image quality was good. Coronary artery opacification was adequate. Total DLP (Dose-Length Product) is 1730.7 mGy-cm. The reported value represents the total of one or more individual components during the CT acquisition of this date and at this time, and as such, the same value may appear in more than one CT report depending on the interpreting/reporting physicians. COMPARISON None FINDINGS CT Coronary Calcium Scoring LMA (Left Main Artery) = 0 LAD (Left Anterior Descending) = 0 LCX (Left Coronary Circumflex) = 0 RCA (Right Coronary Artery) = 0 Total Calcium Score = 0 using the AJ-130 method. The interpretation of the calcium heart score is based on the following continuum*: 0 = no calcified plaque detected (risk of coronary artery disease is very low ??? less than 5%) 1-10 = calcium detected in extremely minimal levels (risk of coronary diseases is still low ??? less than 10%) 11-100 = mild levels of plaque detected with certainty (mild or minimal narrowing of heart arteries is likely) 101-400 = definite,at least moderate levels of plaque detected (relatively high risk of a heart attack within 3-5 years) >401-999 = extensive levels of plaque detected (high risk of heart attack, high levels of vascular disease are present, high likelihood of at least one significant coronary narrowing) *The calcium heart score quantifies the burden of coronary calcification/plaque in the coronary arteries. The calcium heart score is not able to evaluate the presence or burden of non-calcified (i.e. soft) plaque. There is no identifiable calcification in the aortic valve, mitral annulus or mitral valve, pericardium, or myocardium. Coronary CT Angiography The coronary arterial system is right dominant. Quantitative Stenosis Grading: Left Main (LM): The left main originates normally from the left sinus of Valsalva. The LM bifurcates into the left anterior descending artery and left circumflex artery. The LM is patent with no evidence of atherosclerosis. Left Anterior Descending (LAD) and Diagonal Branches: The LAD gives off 3 diagonal branch(es). The LAD and its branches are patent with no evidence of atherosclerosis. There is no evidence of LAD-myocardial bridge. Left Circumflex (LCX) and Obtuse Marginals (OM): The LCX gives off 1 Obtuse Marginal (OM) branch(es). There is one region of concern involving noncalcified plaque at the ostial LCx, with up to 70-90% luminal stenosis present. This region, however, is difficult to visualize in the setting of overlapping vessels. Right Coronary Artery (RCA): The RCA originates normally from the right sinus of Valsalva. The RCA gives off a posterior descending artery (PDA) and posterolateral (PL) branches. The RCA and its branches are patent with no evidence of atherosclerosis. Non-Coronary Cardiac Findings: Analysis of the left ventricular (LV) structure and function was performed after 3-D reconstruction of the LV from axial images, with user-corrected automatic contouring for assessment of LV volumes and user-defined reconstruction from oblique planes for measurement of 3-D cardiac structure and function. -The left ventricle systolic function is normal. -There is no left atrial appendage filling defect. Two right pulmonary veins and two left pulmonary veins drain normally into the left atrium. -No pericardial thickening or calcification. -Central and branch pulmonary arteries in the [id number] are unremarkable. -Thoracic aorta within the visualized thoracic aortic-branches in the [id number] is unremarkable. Extracardiac Structures No significant extra-cardiac findings. Note, however, that this study is focused on the cardiac findings. IMPRESSION -Absence of coronary calcification with an Agatston score = 0 using the AJ-130 method. -There is one region of concern involving noncalcified plaque at the ostial LCx, with up to 70-90% luminal stenosis present at the level of bifurcation. This region, however, is difficult to visualize in the setting of overlapping vessels. -CAD-RADS 4A. Management recommendations per ACC/AHA guidelines*, as clinically appropriate. *Recommendations: CAD RADS 0: Reassurance. Consider non-atherosclerotic causes of chest pain. CAD RADS 1: Consider non-atherosclerotic causes of chest pain. Consider preventive therapy and risk factor modification. CAD RADS 2: Consider non-atherosclerotic causes of chest pain. Consider preventive therapy and risk factor modification, particularly for patients with nonobstructive plaque in multiple segments. CAD RADS 3: Consider further functional testing. Consider symptom-guided anti-ischemic and preventive pharmacotherapy as well as risk factor modification per published guideline statements. CAD RADS 4A: Consider further functional testing or invasive coronary angiography with revascularization per published guideline statements. Consider symptom-guided anti-ischemic and preventive pharmacotherapy as well as risk factor modification per published guideline statements. CAD RADS 4B: Invasive coronary angiography recommended with revascularization per published guideline statements. Consider symptom-guided anti-ischemic and preventive pharmacotherapy as well as risk factor modification per published guideline statements. CAD RADS 5: Consider invasive angiography and/or viability assessment with revascularization per published guideline statements. Consider symptom-guided anti-ischemic and preventive pharmacotherapy as well as risk factor modification per published guideline statements. CRITICAL RESULT None COMMUNICATION Per this written report The coronary and cardiac findings of this CCTA were reviewed, reported, and signed by Yovani Duron MD (Motorcycle Deliverer) Conclusion Electronically signed by : Dina Duron MD 11/05/2023 14:02:53
[2023-11-03] MEDS: METOPROLOL TARTRATE 25MG TABLET *IVABRADINE+METOPROLOL REGIMINE 25 MG PO (08:48)
[2023-11-03 09:12] LABS: POC Glucose,Bedside 94 (70-110)
[2023-11-03] MEDS: NITROGLYCERIN 0.4MG SL TABLET 0.8 MG SL (09:42)
[2023-11-03] MEDS: 0.9 % SODIUM CHLORIDE 50 ML VIAL 40 ML IV (10:12)
[2023-11-03] MEDS: IOPAMIDOL-370 (76%);100ML BOTTLE 85 ML IV (10:12)
[2023-11-03] MEDS: SODIUM CHLORIDE 0.9% 10ML SYR (RAD ONLY) 10 ML IV (10:12)
--- NOTE | 2023-11-03 10:54 | PC.NURSE ---
patient transported to CT scanner at 0938. pre procedure BP 145/94. Nitroglycerin .8mg given sublingual per protocol. post nitroglycerin BP 149/98. 0951 patient's breathing appeared labored with RR 24. patient's diaphoretic and states he is dizzy. BP 73/40. patient remained alert and oriented. color appears jackson. patient's legs raised. glucose checked which was 104. 0953 BP 116/53. patient states symptoms resolved. RN to monitor patient post procedure. VS and symptoms now stable and discharged at 1037 with instructions to monitor for hypotension
== END 2023-11-03 10:37 | disposition home or self-care (01) ==
PROVIDERS: PCP Family Medicine; Visit Provider Physician Assistant
DX: R07.9 Chest pain, unspecified (principal); I10 Essential (primary) hypertension; E78.5 Hyperlipidemia, unspecified; E11.9 Type 2 diabetes mellitus without complications; Z79.84 Long term (current) use of oral hypoglycemic drugs
CPT/HCPCS: 75574; 82962; Q9967

== ENCOUNTER 2023-11-16 14:00 | Outpatient (RCR) | payer MEDICAID, SELFPAY ==
--- NOTE | 2023-10-19 10:48 | HMH.PTOPEV ---
PT Outpatient Evaluation Rehab PT Outpatient Evaluation Start: 10/19/23 09:58 Freq: Status: Active Protocol: Document 10/19/23 09:58 PDESEROUX (Rec: 10/19/23 10:48 PDESEROUX Desktop) E-signed By Fareed Judge, PT Outpatient Therapy Subjective History Subjective History Pt. is a 58 year old male who presents to [facility] Outpatient Physical Therapy Services in [place] for the initial evaluation this date( 10/19/23) w/ c/o subacute and constant LUE shldr. and arm numbness, P!, and digit drawing of insidious onset 1 month ago. Pt. will c/o intermittent digit drawing where pt. has to use opposite extremity to get them unstuck . Pt. reports symptoms will worsen w/ turning his head or playing on his phone. Pt. reports having some symptom relief w/ positioning of the LUE. Pt. also reports having some symptom relief w/ MHP. Recent diagnostic imaging( radiograph) LUE shldr. indicates GH jt. OA per pt. report. Pt. denies having injections for current complaint. Current medications include Aspirin, Metoprolol, Crestor, Sertraline, Omeprazole, Furosemide, Trazodone, Tramadol. PMH includes S/P RLE knee ATS surgery, cardiac cath., hernia repair, COPD, depression disorder, migraines, and insomnia. New diagnosis of cancer in past 12 No months? Chief Complaint Pain,Stiff,Paresthesia, Weakness,Decreased Net Lead Architect Strength Symptom Type Ache,Throb,Numbness,Tingling, Shooting Symptoms Relieved By Rest/Positioning,Heat,Ice Symptoms Aggravated By Bending/Stooping,Physical Activity,Twisting,Lifting Prior Functional Limitations None Current Functional Limitations Reaching,Lifting,Housework, Desk Work/Reading,Recreation Activity Symptom Description Constant and Continuous, Activity Dependent Level of pain today (0-10) 4 Pain scale - at its best (0-10) 3 Pain scale - at its worst (0-10) 6 Cervical Eval Palpation Cervical Muscles L Cervical Paraspinal,L CT Junction,L Upper Trapezius Cervical/Thoracic Palpation Findings Tenderness,Muscle Guarding Posture Head/C-Spine Posture Sitting Position Neutral Position Head/C-Spine Posture Standing Position Neutral Position Flexibility Deficits Upper Trapezius Muscle Length (L) Severe Tightness Levaetor Scapulae Muscle Length (L) Severe Tightness Pectoralis Major Muscle Length (L) Severe Tightness Pectoralis Minor Muscle Length (L) Severe Tightness Passive Joint Mobility Cervical PIVM Dec: R C3/4 L C3/4 R C4/5 L C4/5 R C5/6 L C5/6 R C6/7 L C6/7 R C7/T1 L C7/T1 WNL: R OA L OA R AA L AA R C2/3 L C2/3 AROM Cervical Spine Flexion Active Range of 38 Motion (degrees) Cervical Spine Right Lateral Flexion 28 Active Range of Motion (degrees) Cervical Spine Left Lateral Flexion 23 Active Range of Motion (degrees) MMT Left Deltoid (C5) 4- Good- Biceps Brachii Strength Grade 4 Good Wrist Extension Strength Grade 4 Good Triceps Brachii Strength Grade 4- Good- Wrist Flexion Strength Grade 4 Good Extensor Pollicis Longus Strength Grade 4 Good Finger Abduction Strength Grade 4- Good- Altered Sensation Upper extremity Dermatomes C5,C6,C7,T1 Comment decreased light touch discrimination in above patterns of LUE compared to R Special Test C-Spine Foraminal Compression (Spurling) Positive Left Test C-spine Verterbral Accessory Movements Central P/A Morrison,Left P/A that Elicit Symptoms Morrison C-Spine Foraminal Distraction Test Positive C-Spine Compression Test Positive Left Outpatient Therapy Assessment Impairments Problems/Impairmments Palpation Tenderness,Impaired Range of Motion,Impaired Strength,Impaired Lifting, Impaired Household Care, Impaired Bending,Impaired Recreational Activities, Impaired Desk/Computer Activities,Subjective C/O Pain ,Impaired Self Care/Self Management Prognosis Rehab Potential Good Comment w/ HEP compliancy Clinical Impression Consistent with Diagnosis Yes Consistent with cervical radiculopathy, L Short Term Goals Number of Weeks 2 Decreased Palpation Tenderness Yes: grade 1-2 +TTP to TTP assessment above Decrease Subjective C/O Pain Yes: worse:08/20 Patient to be Ind w/ HEP Yes Sorting And Folding Supervisor Goals Number of Weeks 4-6 Decreased Palpation Tenderness Yes: grade 1 +TTP to TTP assessment above Increase Range of Motion Yes: cervical spine AROM WFL grossly w/o difficulty Increase Strength Yes: LUE shldr. MMT scores 4+ to 5/5 grossly Increase Ability to Drive/Ride in Car Yes: Pt. will be able to sit and ride in a vehicle w/o difficulty Improve Tolerance to Desk/Computer Yes Activities Improve Neck Disability Index Score Yes Improve Quick Dash Score Yes Decrease Subjective C/O Pain Yes: worse:-05/23 Patient to be Ind w/ Advanced HEP Yes Outpatient Therapy Plan of Care Treatment Plan May Include Therapeutic Exercise Including Home Yes Exercise Program Manual Therapy Techniques Yes Neuromuscular Re-education Yes Therapeutic Activities to Return to Yes Previous Functional/Work Level ADL/Self Care Education Yes Mechanical Traction Yes Dry Needling Yes Thermal Modalities Yes Electrical Stimulation Yes Ultrasound/Phonophoresis Yes Iontophoresis Yes Vasopneumatic Compression Pump Yes Massage Yes Eval/Re-Eval Yes Frequency Times per week 2 Duration Number of Weeks 4-6 Addendums This patient is a candidate for social No or vocational rehab? Patient/Guardian verbally acknowledges Yes understanding of treatment program and consents to further treatment? Patient/Guardian verbally acknowledges Yes understanding of diagnosis, prognosis and goals for treatment? Eval Complexity PT Charges 77658 - Moderate Complexity Shoulder/Elbow Eval Shoulder Objective Measurements Elbow Objective Measurements PHYSICIAN CERTIFICATION: I certify the specified therapy services for [place] Gregorio are required, authorized, and reviewed every 30 days.
== END 2023-11-17 08:22 | disposition home or self-care (01) ==
LOC: PT 14:00
PROVIDERS: Visit Provider Physician Assistant
DX: M75.42 Impingement syndrome of left shoulder (principal); M54.2 Cervicalgia
CPT/HCPCS: 97110; 97140; 97163; 97530

== ENCOUNTER 2023-12-01 07:36 | Day surgery (SDC) | payer MEDICAID, SELFPAY ==
[2023-12-01] VITALS (10 sets, daily range): BP systolic 106–143; BP diastolic 62–84; PULSE 68–79; RESP 18; TEMP 37; O2SAT 94–97; BMI 24.3
--- NOTE | 2023-12-01 07:03 | IR_ITS ---
APPROVED REPORT Patient Location: Outpatient Embroidery Cutter: CHAYITO Cho RT (R) PROCEDURES Left heart catheterization Left ventriculogram Selective coronary angiogram INDICATION Angina pectoris, Abnormal CCTA with circumflex artery disease, Informed consent was obtained prior to the procedure. COMPLICATIONS None Estimated Blood Loss: Less than 10 mls TECHNIQUE One percent lidocaine used to anesthetize the right anterior aspect of the wrist. The right radial artery was accessed via the Seldinger technique. A 6 Sammarinese sheath was placed in the right radial artery. 2.5 mg of Verapamil, 800 mcg of nitroglycerin, 1mg Lidocaine and 5000 U Heparin were given through the arterial sheath. The papa catheter was also used to perform left heart catheterization, left ventriculogram and selective coronary angiogram. At the end of the procedure the sheath was removed good hemostasis was achieved using Traclet band, patient was transferred to the postop holding area in stable condition. ANGIOGRAPHIC RESULTS The left main artery Normal The left anterior descending artery Normal The circumflex artery Has an ostial smooth concentric 50 to 60% stenosis with remaining vessel normal The right coronary artery Dominant normal The LUNDBERG ventriculogram reveals Normal 65% The left ventricular end-diastolic pressure 10 to 15 mmHg IMPRESSION Coronary artery disease in the ostial to proximal nondominant circumflex artery which is smooth and should be highly responsive to antianginals Normal ejection fraction Normal LVEDP PLAN 1. I am strongly in favor of maximizing all antianginal medications. This lesion should respond favorably to high intensity statins and antianginal medications. 2. Unless patient's symptoms are absolutely recalcitrant to all antianginal medications I would not recommend stenting this lesion as a stent would extend back into the left main artery. This would possibly require bifurcating stenting into the LAD. 3. Maximize antianginal medications Electronically signed by : Bryan Carlisle MD 12/01/2023 14:58:53
[2023-12-01 08:32] LABS: Basophils # 0.1 K/mm3 (0-0.2); Basophils % 1.6 % (0.1-2.0); Eosinophils # 0.2 K/mm3 (0.0-0.4); Eosinophils % 3.7 % (0.1-12.0); Hematocrit 45.6 % (42.0-52.0); Hemoglobin 14.6 g/dL (14.1-18.0); Lymphocytes # 1.7 K/mm3 (0.7-4.5); Lymphocytes % 28.7 % (10-50); Mean Corpuscular Hemoglobin 32.8 pg (27.0-31.2); Mean Corpuscular Volume 102.6 fl (80-94); Mean Platelet Volume 8.6 fl (7.4-10.4); Monocytes # 0.5 K/mm3 (0.1-1.0); Monocytes % 7.8 % (1.7-9.3); Neutrophils # 3.4 K/mm3 (1.8-7.8); Neutrophils % 58.3 % (37.0-80.0); Platelet Count 235 K/mm3 (142-424); Red Blood Count 4.44 M/mm3 (4.60-6.20); Red Cell Distribution Width 13.6 % (11.5-17.5); White Blood Count 5.8 K/mm3 (4.8-10.8)
[2023-12-01 08:37] LABS: Chloride 105 mmol/L (98-107); Potassium 4.6 mmoL/L (3.5-5.1); Sodium 139 mmol/L (136-145)
[2023-12-01 08:40] LABS: Anion Gap 9.6 mEq/L (5-15); Blood Urea Nitrogen 19 mg/dl (9-20); Calcium 9.1 mg/dl (8.4-10.2); Carbon Dioxide 29 mmol/L (22.0-30.0); Creatinine Clearance Estimated 79 mL/min (50-200); Estimated Glomerular Filt Rate 57 ml/min (>60); GFR (African American) 69 ML/MIN (>60); Glucose 123 mg/dl (74-100)
[2023-12-01] MEDS: HEPARIN 1,000 UNITS/500ML NS (CATH LAB) 3000 UNIT IV (12:56)
[2023-12-01] MEDS: NITROGLYCERIN 800MCG/8ML SYR (CATH LAB) 800 MCG IA (12:56)
[2023-12-01] MEDS: VERAPAMIL 2.5MG/ML 2ML VIAL 2.5 MG IV (12:56)
[2023-12-01] MEDS: diphenhydrAMINE 50MG/ML VIAL 50 MG IV (12:56)
[2023-12-01] MEDS: LIDOCAINE 1% 10ML MDV 20 ML IJ (12:56)
[2023-12-01] MEDS: 0.9 % SODIUM CHLORIDE 500 ML 25 ML IV (12:57)
[2023-12-01] MEDS: MIDAZOLAM HCL 1MG/1ML 5ML VIAL 1 MG IV (13:17)
[2023-12-01] MEDS: FENTANYL 100MCG/2ML VIAL 50 MCG IV (13:18)
[2023-12-01] MEDS: IOPAMIDOL-370 (76%);100ML BOTTLE 70 ML IV (15:57)
== END 2023-12-01 15:04 | disposition home or self-care (01) ==
PROVIDERS: PCP Family Medicine; Visit Provider Internal Medicine
DX: I25.118 Atherosclerotic heart disease of native coronary artery with other forms of angina pectoris (principal); R93.1 Abnormal findings on diagnostic imaging of heart and coronary circulation; R06.09 Other forms of dyspnea; Z79.899 Other long term (current) drug therapy; E11.9 Type 2 diabetes mellitus without complications
CPT/HCPCS: 80048; 85025; 93458; 99152; C1725; C1769; J1200; J1644; J2250; J3010; Q9967

== ENCOUNTER 2024-02-09 13:30 | Outpatient (CLI) | payer MEDICAID, SELFPAY ==
[2024-02-09 16:58] LABS: Anion Gap 14.4 mEq/L (5-15); Blood Urea Nitrogen 10 mg/dl (9-20); Calcium 9.4 mg/dl (8.4-10.2); Carbon Dioxide 29 mmol/L (22.0-30.0); Chloride 101 mmol/L (98-107); Chol/HDL Ratio 3.7 (1-3.5); Cholesterol 173 mg/dl (140-200); Estimated Glomerular Filt Rate 57 ml/min (>60); GFR (African American) 69 ML/MIN (>60); Glucose 105 mg/dl (74-100); HDL Cholesterol 47 mg/dl (40-60); Potassium 4.4 mmoL/L (3.5-5.1); Sodium 140 mmol/L (136-145); Triglycerides 137 mg/dl (30-150); VLDL Cholesterol 27 mg/dL (0-40)
[2024-02-09 17:09] LABS: Direct LDL Cholesterol 105.34 mg/dL (100-129)
== END 2024-02-09 23:59 | disposition home or self-care (01) ==
LOC: LAB.DROPOF 02-10 10:12
PROVIDERS: PCP Family Medicine; Visit Provider Family Medicine
DX: I25.10 Atherosclerotic heart disease of native coronary artery without angina pectoris (principal); I10 Essential (primary) hypertension; E78.5 Hyperlipidemia, unspecified
CPT/HCPCS: 80048; 80061

== ENCOUNTER 2024-02-19 14:53 | Outpatient (CLI) | payer MEDICAID, SELFPAY ==
--- NOTE | 2024-02-19 14:53 | CT_ITS ---
FINAL REPORT TECHNIQUE: Thin section axial images were obtained from the lung apices to the upper abdomen by computed tomography. Reformatted images were obtained and reviewed. This study was performed with techniques to keep radiation doses al low as reasonably achievable (ALARA). Individualized dose reduction techniques using automated exposure control or adjustment of mA and/or kV according to the patient's size were employed. CLINICAL HISTORY: lung cancer screening FORMER SMOKER, QUIT 5 MONTHS AGO, SMOKED 1 1/2 PKS PER DAY FOR 43 YRS COPD COMPARISON: None FINDINGS: CHEST CT LOW DOSE CTDI vol (mGy): 2.90 DLP (mGy-cm): 110.20 There is no axillary adenopathy. There is no mediastinal or hilar mass or adenopathy. The heart is normal in size. There is no pericardial or pleural effusion. There is mild emphysema and mild pulmonary scarring. Lung window images demonstrate no suspicious infiltrate or nodule. Multiple calcified granulomas are noted. Limited images of the upper abdomen are unremarkable. IMPRESSION: Lung-RADS category 1. Recommend 12 month follow up low dose chest CT. Reviewed, Interpreted and Dictated by Justus Payne III, MD Transcribed by Janelle Quintero Authenticated and [facility]
== END 2024-02-19 23:59 | disposition home or self-care (01) ==
LOC: RAD 14:53
PROVIDERS: PCP Family Medicine; Visit Provider Family Medicine
DX: Z87.891 Personal history of nicotine dependence (principal)
CPT/HCPCS: 71271

== ENCOUNTER 2024-02-23 21:14 | Outpatient (CLI) | payer MEDICAID, SELFPAY ==
[2024-02-23 22:36] LABS: HIV (1&2) Antibody Rapid NONREACTIVE (NONREACTIVE)
[2024-02-25 08:22] LABS: HCV Ab Non Reactive (Non Reactive)
== END 2024-02-23 23:59 | disposition home or self-care (01) ==
LOC: LAB.DROPOF 21:15
PROVIDERS: PCP Family Medicine; Visit Provider Family Medicine
DX: Z11.59 Encounter for screening for other viral diseases (principal); Z11.4 Encounter for screening for human immunodeficiency virus [HIV]
CPT/HCPCS: 86803; 87389

== ENCOUNTER 2024-05-31 10:05 | Outpatient (CLI) | payer MEDICAID, SELFPAY ==
[2024-05-31 17:42] LABS: Albumin Level 4.6 g/dl (3.5-5.0); Chloride 102 mmol/L (98-107); Potassium 4.8 mmoL/L (3.5-5.1); Sodium 139 mmol/L (136-145)
[2024-05-31 17:45] LABS: Alanine Aminotransferase 24 U/L (12-78); Alkaline Phosphatase 69 U/L (38-126); Anion Gap 11.8 mEq/L (5-15); Aspartate Amino Transferase 27 U/L (17-59); Blood Urea Nitrogen 13 mg/dl (9-20); Carbon Dioxide 30 mmol/L (22.0-30.0); Cholesterol 249 mg/dl (140-200); Estimated Glomerular Filt Rate 69 ml/min (>60); GFR (African American) 83 ML/MIN (>60); Globulin 2.3 g/dL (1.3-3.2); Glucose 106 mg/dl (74-100); Total Protein,Serum 6.9 g/dl (6.3-8.2); Triglycerides 159 mg/dl (30-150); VLDL Cholesterol 32 mg/dL (0-40)
[2024-05-31 17:46] LABS: Calcium 9.7 mg/dl (8.4-10.2); Chol/HDL Ratio 7.5 (1-3.5); HDL Cholesterol 33 mg/dl (40-60)
[2024-05-31 17:57] LABS: Direct LDL Cholesterol 169.82 mg/dL (100-129)
[2024-05-31 19:56] LABS: Hemoglobin A1C 5.7 % (4.0-6.0)
== END 2024-05-31 23:59 | disposition home or self-care (01) ==
LOC: LAB.DROPOF 06-01 12:09
PROVIDERS: PCP Family Medicine; Visit Provider Family Medicine
DX: I10 Essential (primary) hypertension (principal); E11.9 Type 2 diabetes mellitus without complications; E78.5 Hyperlipidemia, unspecified
CPT/HCPCS: 80053; 80061; 83036

== ENCOUNTER 2024-08-11 12:31 | Outpatient (CLI) | payer MEDICAID, SELFPAY ==
--- NOTE | 2024-08-11 12:34 | XR_ITS ---
FINAL REPORT CLINICAL HISTORY: Left hand trigger finger pain COMPARISON: None FINDINGS: LEFT HAND Three views demonstrate no acute fracture or dislocation. The visualized joint spaces are normally aligned. The soft tissues are unremarkable. IMPRESSION: No acute bony abnormality. Reviewed, Interpreted and Dictated by Peña Patton MD Transcribed by Mel Muñoz Authenticated and [facility]
== END 2024-08-11 23:59 | disposition home or self-care (01) ==
LOC: RAD 12:33
PROVIDERS: PCP Family Medicine; Visit Provider Physician Assistant
DX: M79.642 Pain in left hand (principal)
CPT/HCPCS: 73130

== ENCOUNTER 2024-08-30 17:29 | Outpatient (CLI) | payer MEDICAID, SELFPAY ==
[2024-08-30 17:18] LABS: Basophils # 0.1 K/mm3 (0-0.2); Basophils % 0.7 % (0.1-2.0); Eosinophils # 0.1 Kmm3 (0.0-0.4); Eosinophils % 1.5 % (0.1-12.0); Hematocrit 43.4 % (42.0-52.0); Hemoglobin 14.7 g/dL (14.1-18.0); Immature Granulocytes # 0.02 10^3uL; Immature Granulocytes % 0.3 %; Lymphocytes # 1.3 K/mm3 (0.7-4.5); Lymphocytes % 19.6 % (10-50); Mean Corpuscular HGB Conc 33.9 g/dL (31.8-35.4); Mean Corpuscular Hemoglobin 32.7 pg (27.0-31.2); Mean Corpuscular Volume 96.7 fl (80-94); Mean Platelet Volume 11.6 fl (7.4-10.4); Monocytes # 0.6 K/mm3 (0.1-1.0); Monocytes % 8.3 % (1.7-9.3); Neutrophils # 4.7 K/mm3 (1.8-7.8); Neutrophils % 69.6 % (37.0-80.0); Nucleated Red Blood Cells # 0 10^3/uL; Nucleated Red Blood Cells % 0 %; Platelet Count 210 K/mm3 (142-424); Red Blood Count 4.49 M/mm3 (4.60-6.20); Red Cell Distribution Width 12.5 % (11.5-17.5); Red Cell Distribution Width-SD 44.4 fL; White Blood Count 6.8 K/mm3 (4.8-10.8)
[2024-08-30 17:38] LABS: Creatinine,Urine Random 116 mg/dL (Not Estab.)
[2024-08-30 17:55] LABS: Microalbumin/Creatinine Ratio 282.2
[2024-08-30 18:00] LABS: Alanine Aminotransferase 28 U/L (12-78); Albumin Level 4.7 g/dl (3.5-5.0); Albumin/Globulin Ratio 2.2 (1.1-1.8); Alkaline Phosphatase 67 U/L (38-126); Anion Gap 13.4 mEq/L (5-15); Aspartate Amino Transferase 26 U/L (17-59); Bilirubin,Total 1.5 mg/dl (0.2-1.3); Blood Urea Nitrogen 12 mg/dl (9-20); Calcium 9.4 mg/dl (8.4-10.2); Carbon Dioxide 27 mmol/L (22.0-30.0); Chloride 103 mmol/L (98-107); Chol/HDL Ratio 2.2 (1-3.5); Cholesterol 110 mg/dl (140-200); Estimated Glomerular Filt Rate 62 ml/min (>60); GFR (African American) 76 ML/MIN (>60); Globulin 2.1 g/dL (1.3-3.2); Glucose 108 mg/dl (74-100); HDL Cholesterol 49 mg/dl (40-60); Potassium 4.4 mmoL/L (3.5-5.1); Sodium 139 mmol/L (136-145); Total Protein,Serum 6.8 g/dl (6.3-8.2); Triglycerides 65 mg/dl (30-150); VLDL Cholesterol 13 mg/dL (0-40)
[2024-08-30 18:11] LABS: Direct LDL Cholesterol 48.69 mg/dL (100-129)
[2024-08-30 18:16] LABS: Hemoglobin A1C 5.8 % (4.0-6.0)
== END 2024-08-30 23:59 | disposition home or self-care (01) ==
LOC: LAB.DROPOF 17:29
PROVIDERS: PCP Family Medicine; Visit Provider Family Medicine
DX: E78.5 Hyperlipidemia, unspecified (principal); E11.9 Type 2 diabetes mellitus without complications; I10 Essential (primary) hypertension
CPT/HCPCS: 80053; 80061; 82043; 82570; 83036; 85025

== ENCOUNTER 2024-09-06 09:46 | Outpatient (CLI) | payer MEDICAID, SELFPAY ==
--- NOTE | 2024-09-06 10:15 | CA_ITS ---
FINAL REPORT TECHNIQUE: Soto scale, color and spectral doppler images of the bilateral carotid arteries were obtained. CLINICAL HISTORY: CAD, DM, HTN, HLD Pt has what appears to be an enlarged lymph node on Right side of neck measuring 3.14cm x 1.53cm. COMPARISON: None FINDINGS: Peak systolic velocity in the right internal carotid artery is 119 cm/sec. The internal carotid to common carotid artery ratio is 0.95. There is no significant carotid artery stenosis and no significant plaque formation. The right vertebral artery is normal in direction. There is a 3.1 x 1.5 cm hypoechoic focus in the right neck adjacent to the cervical carotid artery, that may represent a complex cyst or degenerating enlarged lymph node. Peak systolic velocity in the left internal carotid artery is 141 cm/sec. The internal carotid to common carotid artery ratio is 0.95. There is no significant carotid artery stenosis and no significant plaque formation. The left vertebral artery is normal in direction. IMPRESSION: No ultrasound evidence of hemodynamically significant carotid artery stenosis. Normal peak systolic velocities and normal internal to common carotid artery ratios bilaterally. 3.1 x 1.5 cm hypoechoic mass adjacent to the right carotid artery. Recommend a CT scan of the neck with intravenous contrast to further evaluate. Reviewed, Interpreted and Dictated by Peña Patton MD Transcribed by Mami Khan Authenticated and [facility]
== END 2024-09-06 23:59 | disposition home or self-care (01) ==
LOC: RT 09:46
PROVIDERS: PCP Family Medicine; Visit Provider Family Medicine
DX: I25.10 Atherosclerotic heart disease of native coronary artery without angina pectoris (principal); I10 Essential (primary) hypertension; E78.5 Hyperlipidemia, unspecified; E11.9 Type 2 diabetes mellitus without complications; R22.1 Localized swelling, mass and lump, neck
CPT/HCPCS: 93880

== ENCOUNTER 2024-09-23 12:51 | Outpatient (CLI) | payer MEDICAID, SELFPAY ==
--- OUTSIDE RECORDS SUMMARY | 2024-09-23 12:54 | XMS_ITS | Clinical Summary ---
Author Organization Healthcare Address [address] [place] [address] Care Team Providers Care Cinema Or Theatre Manager Name Role Phone Unavailable Primary Care Provider Unavailabl e Allergies Active Allergy Reactions Criticality Noted Date Comments Penicillin G Unknown - Patient st ates they do not know rxn details Low 08/03/2012 Social History Tobacco Use Types Packs/Day Years Used Date Smoking Tobacco: Never Assessed Sex and Gender Information Value Date Recorded Sex Assigned at Not on file Legal Sex Male 7:57 PM EDT Gender Identity Not on file Sexual Orientation Not on file Plan of Treatment Health Maintenance Due Date Last Done Comments Dental Oral Exam 1967 Dental Prophylaxis 1967 Dental X-Ray: Bitewings 1967 Dental X-Ray: Full Mouth 1967 [facility]-Depression Screening 1967 [facility]-/Child/Adol SDOH Screenings 1967 [facility]- SDOH Screenings 1985 [facility]-Adult SDOH Screenings 1985 [facility]-DTaP,Tdap,and Td Vaccine s (1 - Tdap) 1986 [facility]-Hepatitis B Vaccines (1 of 3 - 19+ 3-dose series) 1986 CT Colonography 2012 Colonoscopy 2012 FIT-DNA 2012 FIT 2012 FOBT 2012 Sigmoidoscopy 2012 [facility]-Colorectal Cancer Screening 2012 [facility]-Pneumococcal Vaccine: 50 + Years (1 of 1 - PCV) 2017 [facility]-Zoster Vaccines (1 of 2) 2017 [id number] Vaccine (1 - 20 24-25 season) 2023 [facility]-Influenza Vaccine ([place]as[place] Ended) 2024 HPV Vaccines Aged Out No longer eligi ble based on patient's age to complete this topic [facility]-HIB Vaccines Aged Out No longer e ligible based on patient's age to complete this topic [facility]-Hepatitis A Vaccines Aged Out No longer eligible based on patient's age to complete this topic [facility]-IPV Vaccines Aged Out No longer e ligible based on patient's age to complete this topic [facility]-Rotavirus Vaccines Aged Out No lo nger eligible based on patient's age to complete this topic Insurance
--- OUTSIDE RECORDS SUMMARY | 2024-09-23 12:54 | XMS_ITS | Data Portability ---
Author Organization [place] - [facility] - [place] & [facility] ADMIN Address [address] [place] [id number] Assessment No assessment recorded. Plan of Treatment Reminders Order Date Submit Date Provider Last Modified By Organization Details Last Modified Time Details Appointments OV EST 15 025 02:15PM Kirsten Brown MD Not available Not available Not available Lab None record ed. Referral None record ed. Procedures None record ed. Surgeries None record ed. Imaging None record ed. Medication Orders None record ed. Patient TargetsNo targets recorded. Patient Instructions Encounter Date Encounter Id Patient Instructions Last Modified By Organization Details Last Modified Time 01/01/2022 [id number] Was able to remove cerumen from the left ear today. There is still a small perforation in that ear from his ear tube placement. Ear looks healthy. Advised him to not use sweet oil in that ear due to the perforation. He may continue using the oil in the right ear. I will see him back in six months for routine cleaning or sooner if needed. [email or web address] Not available 01/01/2022 09:15:23 07/16/2022 [id number] Mr. Gregorio left tympanic membrane perforation has apparently healed in a monomeric fashion. It has been over 3 years since we have done a hearing test and would like to get that scheduled at his earliest convenience. [email or web address] Not available 07/16/2022 08:54:25 07/30/2022 [id number] 1-Discussed findings with Mr. Gregorio and Dr. Kirsten Brown MD. 2-F/u annually to monitor. [email or web address] Not available 07/30/2022 09:57:25 01/06/2024 [id number] Follow up in 1 year for cerumen cleaning call sooner as needed. [email or web address] Not available 01/06/2024 16:59:09 Reason for Referral None Reported. Results Created Date Observation Date Name Description Value Unit Range Abnormal Flag Note LastModifiedBy Organization Detail LastModifiedTime 07/31/19 23 07/30/2022 audio gram No observ ation record ed. BARCODE Not Available 2022 13:07:28 Result Notes None recorded. Problems Name Problem SNOMED Code Status Onset Date Resolution Date Notes Provider Name and Address Organization Details Recorded Time Mixed conductiv e and sensorine ural hearing loss of left ear 89268321852 107 Active 2017 ICD-10: H90.A32 - Mixed conductiv e and sensorine ural hearing loss, unilatera l, left ear with restricte d hearing on the contralat eral side Not Available [facility] 11:43:30 Restless legs 83630275 Active Cely Wm null, [place] - [facility] - [place] & [place] 2 15:13:42 Migraine without aura 70986888 Active Cely Wm null[place] - [facility] [place] & [place] 2 15:13:42 Chronic frontal sinusitis 35791724 Active Cely Wm null[place] [facility] [place] & [place] 2 15:13:42 Dyslipide jamshid 042762912 Active Cely Wm [place] [facility] [place] & [place] 2 15:13:42 Bilateral tympanosc lerosis 74840216449 682561 Active Cely Wm [place] [facility] [place] & [place] 2 15:13:42 Migraine without aura, not refractor y 537180044 Active Cely Wm [place] [facility] [place] & [place] 2 15:13:42 Deviated nasal septum 349827486 Active Cely Wm [place] [facility] [place] & [place] 2 15:13:42 Dysfuncti on of left eustachia n tube 46807131864 77212 Active Cely Wm [place] [facility] [place] & [place] 2 15:13:42 Dysfuncti on of eustachia n tube 81464098 Active Cely Wm [place] [facility] - & [place] 2 15:13:42 Backache 817214283 Active Cely Wm null, [place] - [facility] - & [place] 2 15:13:42 Asymmetri trent sensorine ural hearing loss 426574844 Active Cely Wm null, [place] - [facility] - & [place] 2 15:13:42 Disorder of thyroid gland 83769682 Active Cely Wm null, [place] [facility] - & [place] 2 15:13:42 Central perforati on of tympanic membrane 65241886 Active Cely Wm null, [place] - [facility] - & [place] 2 15:13:42 Perforati on of tympanic membrane 51620247 Active Cely Wm null, [place] [facility] - & [place] 2 15:13:42 Counselin g about tobacco use Active Cely Wm null, [place] - [facility] - & [place] 2 15:13:42 Chronic pain 60479841 Active Cely Wm null, [place] - [facility] - & [place] 2 15:13:42 Hand cramps 889141725 Active Cely Wm null, [place] - [facility] - & [place] 2 15:13:42 Gastritis 5250141 Active Cely Wm null, [place] - [facility] - & [place] 2 15:13:42 Acute back pain with sciatica 428588892 Active Cely Wm null, [place] - [facility] - & [place] 2 15:13:42 Hearing loss of left ear 233366319 Active Cely Wm null, [place] - [facility] - [place] & [place] 2 15:13:42 Chronic maxillary sinusitis 31038111 Active Cely Wm null, [place] - [facility] - & [place] 2 15:13:42 Mixed hyperlipi demia 987108821 Active Cely Wm null[place] - [facility] - & 2 15:13:42 Lesion of penis 391568498 Active Cely Wm null, [place] - [facility] - & 2 15:13:42 Prediabet es 403373732 Active Cely Wm null, [place] - [facility] - & 2 15:13:42 Chest pain 39865727 Active Cely Wm [place] - [facility] - & 2 15:13:42 Recurrent major depressiv e episodes, moderate 998927293 Active Cely Wm null, [place] - [facility] - & 2 15:13:42 Essential hypertens ion 27920085 Active Cely Wm null, [place] - [facility] - & 2 15:13:42 Refractor y migraine without aura 678595095 Active Cely Wm null, [place] - [facility] - & 2 15:13:42 Nasal obstructi on 194122646 Active Cely Wm null[place] - [facility] - & 2 15:13:42 Refractor y migraine 729168714 Active Cely Wm null, [place] - [facility] - & 2 15:13:42 Impacted cerumen in left ear 66642809654 48622 Active Cely Wm null, [place] - [facility] - & 2 15:13:42 Allergic rhinitis 90573511 Active Cely [place] - [facility] - & 2 15:13:42 Acute maxillary sinusitis 81369446 Active C[place] - [facility] - & 2 15:13:42 Sciatica 42915470 Active Cely [place] [facility] - & 2 15:13:42 Headache disorder 398922941 Active Cely [place]m [place] - [facility] - & 2 15:13:42 Acute upper respirato ry infection 29887952 Active Cely Wm null, [place] - [facility] - [place] & [place] 2 15:13:42 Hiatal hernia 18208560 Active Cely Wm null, [place] - [facility] - [place] & [place] 2 15:13:42 Chronic rhinitis 62670454 Active Cely Wm null, [place] [facility] - & [place] 2 15:13:42 Esophagit is 31636881 Active Cely Wm null, [place] - [facility] - & [place] 2 15:13:42 Slow transit constipat ion 63229248 Active Cely Wm null, [place] - [facility] - [place] & [place] 2 15:13:42 Chronic obstructi ve pulmonary disease 70453731 Active Cely Wm null, [place] - [facility] - [place] & [place] 2 15:13:42 Unilatera l mixed conductiv e and sensorine ural hearing loss with unrestric gissell hearing on the contralat eral side Active Cely Wm null, [place] - [facility] - & [place] 2 15:13:42 Tobacco dependenc e syndrome 66920648 Active Cely Wm null, [place] - [facility] - [place] & 2 15:13:42 Atrophic flaccid tympanic membrane 78773819 Active Cely Wm null, [place] - [facility] - [place] & [place] 2 15:13:43 Tobacco user 211933698 Active Cely Wm null, [place] - [facility] - [place] & [place] 2 15:13:43 Fistula of middle ear 708805579 Active Cely Wm null, [place] - [facility] - [place] & [place] 2 15:13:43 Migraine 03131832 Active Cely Wm [place] - [facility] [place] & [place] 2 15:13:43 Insomnia 494813651 Active Cely Wm [place], [place] - [facility] - [place] & [place] 2 15:13:43 Sensorine ural hearing loss 77402504 Active Cely Wm null, [place] - [facility] - [place] & [place] 2 15:13:43 Gastroeso phageal reflux disease 715733577 Active Cely Wm null, [place] [facility] & [place] 2 15:13:43 Acute exacerbat ion of chronic obstructi ve pulmonary disease 052228036 Active Cely Wm null, [place] [facility] & [place] 2 15:13:43 Hyperlipi demia 18945283 Active Cely Wm null, [place] [facility] & [place] 2 15:13:43 Nasal deviation 428063043 Active Cely Wm null, [place] [facility] & [place] 2 15:13:43 Gastroeso phageal reflux disease without esophagit is 340606815 Active Cely Wm null, [place] [facility] & [place] 2 15:13:43 Obstructi ve sleep apnea syndrome 56350762 Active Cely Wm null, [place] [facility] & 2 15:13:43 Anxiety 32693785 Active Cely Wm null, [place] [facility] & [place] 2 15:13:43 Sensorine ural hearing loss of bilateral ears 385257378 Active Cely Wm null, [place] [facility] & [place] 2 15:13:43 Chronic ethmoidal sinusitis 06442993 Active Cely Wm null, [place] [facility] & [place] 2 15:13:43 Constipat ion 97297666 Active Cely Wm null, [place] [facility] & [place] 2 15:13:43 Nasal congestio n 87271406 Active Cely Wm null, [place] [facility] & [place] 2 15:13:43 Notes:Some problems listed i n Document: #[id number] could not be added to this patient's chart. Please review this document and add these problems to the patient's chart manually as needed. Problem Notes None recorded. Procedures Surgical History Date Name Laterality Status Provider Name and Address Organization Details Recorded Time 01/02/20 22 Cerumen removal with microscope completed Tyson Roberts [facility] & [place] 01/01/2022 09:14:49 hernia repair completed Rachell Kitchen [facility] & [place] 01/01/2022 09:03:46 cardiac catheterization completed Rachell Kitchen [facility] & [place] 01/01/2022 09:04:01 PE Tubes completed Rachellsavanah PHILIP [facility] & [place] 01/01/2022 09:04:09 colonoscopy completed Rachell PHILIP [facility] & [place] 01/01/2022 09:04:16 Imaging Results None recorded. Procedure Notes None recorded. Medical Equipment None Reported. Allergies Allergen ID Allergen Name Allergen Category Reaction Reaction Severity Criticality Documentation Date Start Date Code Code System Note Provider Name and Address Organization Details Recorded Time 2485 penicilli n G Not available rash Not available Not available 12/19/2021 7980 RxNorm Cely acosta, [place] [facility] & [place] 15:13:41 Medications Name Sig Start Date Stop Date Status Note LastModified by Organization Details LastModified Time metformin 500 mg tablet active Not Available Not Available Not Available trazodone 50 mg tablet active Not Available Not Available Not Available cetirizine 10 mg tablet active Not Available Not Available Not Available metoprolol succinate ER 50 mg tablet,exte nded release 24 hr active Not Available Not Available Not Available prednisone 20 mg tablet active Not Available Not Available Not Available omeprazole 40 mg capsule,del ayed release active Not Available Not Available Not Available aspirin 81 mg tablet,willow yed release 1 {tablet} by oral route. active Not Available Not Available No t Available famotidine 20 mg tablet active Not Available Not Available Not Available Lasix 20 mg tablet 1 {tablet} by oral route. active Not Available Not Available No t Available montelukast 10 mg tablet active Not Available Not Available Not Available hydroxyzine HCl 10 mg tablet active Not Available Not Available Not Available cefdinir 300 mg capsule 01/05 completed Not Available Not Available Not Available fluticasone propionate 50 mcg/actuati on nasal spray,suspe nsion 1 {spray_in _each_nos tril} by nasal route. 2019 active Not Available Not Available Not Avai lable sertraline 50 mg tablet active Not Available Not Available Not Available loratadine 10 mg tablet active Not Available Not Available Not Available ezetimibe 10 mg tablet active Not Available Not Available Not Available cyclobenzap rine 5 mg tablet active Not Available Not Available Not Available rosuvastati n 20 mg tablet active Not Available Not Available Not Available rosuvastati n 40 mg tablet active Not Available Not Available Not Available omega-3 acid ethyl esters 1 gram capsule active Not Available Not Available Not Available ranolazine ER 500 mg tablet,exte nded release,12 hr active Not Available Not Available Not Available ProAir HFA 90 mcg/actuati on aerosol inhaler 2 {puffs_as _needed}s 6 times a day by inhalatio n route. active Not Available Not Available No t Available metoprolol tartrate 75 mg tablet Take 1 tablet twice a day by oral route. active Not Available Not Available No t Available Aimovig Autoinjecto r 140 mg/mL subcutaneou s auto-inject or active Not Available Not Available Not Available Vitals Date Recorded Body height Body mass index (BMI) Body weight Body temperature Heart rate Systolic blood pressure Diastolic blood pressure Provider Name and Address Organization Details Last Updated DateTime 3 191.77 cm 23.9 kg/m2 74295.9 2 g 96.9 [degF] 62 /min 128 mm[Hg] 60 mm[Hg] Rachell PHILIP [facility] 3 08:21:21 Date Recorded Body height Body mass index (BMI) Body weight Body temperature Heart rate Systolic blood pressure Diastolic blood pressure Provider Name and Address Organization Details Last Updated DateTime 2 191.77 cm 22.9 kg/m2 95046.4 6 g 96.9 [degF] 64 /min 142 mm[Hg] 93 mm[Hg] Rachell PHILIP [facility] & [place] 2 09:01:56 Date Recorded Body height Body mass index (BMI) Body weight Body temperature Provider Name and Address Organization Details Last Updated DateTime 01/06/2024 191.77 cm 25.9 kg/m2 76106.4 g 97 [degF] Rachell Kitchen [place] - NT [facility] & [place] 01/06/2024 13:57:42 Social History None recorded. Functional Status None recorded. Mental Status None recorded. Family History Nothing Reported. Medical History Condition Response Allergies/Hayfever N Heart Problems N Heart Conditions N Emphysema N Migraines N Thyroid Problems N Glaucoma N Developmental Delay N Depression Y Anemia N Immune System Disorder N Anesthesia Complications N Heart Attack (PA) N Diabetes N Anxiety Disorder N Bleeding Disorder N Hearing Loss Y Arthritis N Tuberculosis N Hyperlipidemia Y Acid Reflux (GERD) N Cancer N Stroke N Asthma N Sleep Disorder N GERD/Reflux N Heart Disease N Headaches Y Fibromyalgia N Hypertension N Speech Delay N Kidney Disease N Immunizations Vaccine Type Date Status Note Provider Nam e and Address Organization Details Recorded Time Influenza, split virus, trivalent, preservative 5 completed [facility] & [place] 12/19/2021 15:13:43 Influenza, split virus, trivalent, PF 7 completed [facility] & [place] 12/19/2021 15:13:43 Influenza, MDCK, quadrivalent, PF 8 completed [facility] & [place] 12/19/2021 15:13:43 Influenza, MDCK, quadrivalent, PF 8 completed Not Available [facility] 12/23/2021 10:30:57 Influenza, split virus, trivalent, preservative 5 completed Not Available [facility] 12/23/2021 10:30:57 Influenza, split virus, trivalent, PF 7 completed Not Available [facility] 12/23/2021 10:30:57 Past Encounters Encounter ID Performer Location Encounter Start Date Encounter Closed Date Diagnosis/Indication Diagnosis SNOMED-CT Code Diagnosis ICD10 Code Diagnosis Note [id number] Kirsten Brown MD [facility] [place] [address], [facility] [place] [address] 01/01/2022 08:51:01 01/01/2022 09:11:12 Impacted cerumen in left ear 3020969148 832679 H61.22 [id number] Kirsten Brown MD [facility] [place] [id number] [facility] [address] [place] [id number] 07/16/2022 08:16:26 07/16/2022 08:43:32 Central perforation of tympanic membrane 48576969 H72.02 Perforatio n on the left has closed. No cerumen seen. Will have him get an audiogram seeing as though it has been over three years since the last one. I will see him back as needed. Asymmetric al sensorineural hearing loss 650260549 H90.5 [id number] DAR ALY [facility] [place] [id number] [facility], [facility] [place] [id number] 07/30/2022 09:45:16 07/30/2022 09:57:45 Sensorineural hearing loss 66487057 H90.3 [id number] Kirsten Brown MD [facility] [address], [facility] [place] [id number] 01/06/2024 13:19:06 01/06/2024 14:15:02 Bilateral tympanosclerosis 9957006562 4243459 H74.03 Healed per foration of ear drum 77251966 Z86.69 Tobacco de pendence syndrome 69456294 F17.200 Health Concerns Section Related Observation LastModified by Organization Detai ls LastModified Time None Recorded Concern Status LastModified by Organization Details LastModified Time None Recorded Advance Directives Directive None Recorded Payers Insurance Date Sequence Insurance Name Policy Number Policy Nguyễn Covered Member ID Nguyễn Member ID Guarantor Name 01/06/2024 1 [employer] [facility] (MEDICAID REPLACEMENT - HMO) CSKY Guanaco Gregorio [id number] Guanaco Gregorio 05/18/2019 1 *SELF PAY* Wendy Gregorio 04/18/2019 UNSPECIFIED REMIT PAYOR Guanaco Gregorio 01/06/2024 1 [employer] [facility] (MEDICAID REPLACEMENT - HMO) Guanaco Gregorio [id number] Guanaco Gregorio Notes Date Note Type Note Provider Name and Address Organization Details Recorded Time 01/01/2022 text/html 56yo male return s to the office for regular check up on both ears and cerumen impaction. He has been using sweet oil in both ears. Feels as though his left ear is clogged. Denies any drainage or pain. Kirsten Brown MD [address], [place], [address], [facility] & [place] 01/01/2022 10:15:46 07/16/2022 text/html 56yo male return s to the office for regular check up on both ears and cerumen impaction. He has been using sweet oil in both ears. Several weeks ago he felt his right ear was clogged . Denies any drainage or pain. Feels that hearing may be a little better. Kirsten Brown MD [address], [place], [address], [facility] & [place] 07/16/2022 08:56:53 07/30/2022 text/html Mr. Gregorio wa s seen today for an audiologic evaluation per Dr. Kirsten Brown MD. Mr. Gregorio has long-standing high freq SNHL bilaterally. He has had multiple PE tubes in the LE, however, there is no tube present this date. Otoscopic inspection was unremarkable bilaterally this date. DAR ALY [address], [place], [address], [facility] & [place] 07/30/2022 09:57:40 01/06/2024 text/html 07/16/22-56yo male returns to the office for regular check up on both ears and cerumen impaction. He has been using sweet oil in both ears. Several weeks ago he felt his right ear was clogged . Denies any drainage or pain. Feels that hearing may be a little better. 01/06/24-Patient is here for bilateral cerumen impaction,He feels like his ears feel full, he is no longer using the sweet oil in his ears. Kirsten Brown MD [address], [place], [address], [facility] & [place] 01/06/2024 16:59:36
[2024-09-23] MEDS: IOPAMIDOL-370 (76%);100ML BOTTLE 80 ML IV (13:05)
[2024-09-23] MEDS: 0.9 % SODIUM CHLORIDE 50 ML VIAL IV (13:05)
[2024-09-23] MEDS: SODIUM CHLORIDE 0.9% 10ML SYR (RAD ONLY) 10 ML IV (13:05)
--- NOTE | 2024-09-23 13:45 | CT_ITS ---
FINAL REPORT TECHNIQUE: NASCET technique utilized for stenosis evaluation. CLINICAL HISTORY: abnormal carotid doppler FINDINGS: There is a mass adjacent to the right internal carotid artery, also seen on a prior ultrasound examination of 09/06/2024. This mass measures 3.6 x 2.6 cm in size, and is best seen on image #44 of series 601, and image #232 of series 2. Several adjacent small lymph nodes are identified. The mass is anterior to the right subclavian muscle, and posterior to the parotid gland. Note is made of complete opacification of the mastoid air cells. RIGHT CAROTID: No significant stenosis is seen of the cervical common or internal carotid artery. LEFT CAROTID: No significant stenosis seen of the cervical common or internal carotid artery. VERTEBRALS: The vertebrals are patent. No significant stenosis is present. IMPRESSION: No significant arterial abnormality. There is a mass adjacent to the right internal carotid artery as described above. This may represent a large lymph node, although neoplasm is not excluded. Consider tissue sampling for further evaluation as indicated. Reviewed, Interpreted and Dictated by Peña Patton MD Transcribed by Mami Khan Authenticated and [facility]
== END 2024-09-23 23:59 | disposition home or self-care (01) ==
LOC: RAD 12:52
PROVIDERS: PCP Family Medicine; Visit Provider Family Medicine
DX: R22.1 Localized swelling, mass and lump, neck (principal)
CPT/HCPCS: 70498; Q9967

== ENCOUNTER 2024-10-11 07:34 | Outpatient (CLI) | payer MEDICAID, SELFPAY ==
--- OUTSIDE RECORDS SUMMARY | 2024-10-11 07:37 | XMS_ITS | Clinical Summary ---
Author Organization Healthcare Address [address] [place] [address] Care Team Providers Care Exercise Manager Name Role Phone Unavailable Primary Care [...] Health Maintenance Due Date Last Done Comments [facility]-Depression Screening 1965 [facility]-Infant/Child/Adol SDOH Screenings 1965 [facility]- SDOH Screenings 1985 [...] 2017 [facility]-Zoster Vaccines (1 of 2) 2017 [id number] Vaccine ( - 20 24-25 season) 2023 [facility]-Influenza Vaccine [...]
--- OUTSIDE RECORDS SUMMARY | 2024-10-11 07:37 | XMS_ITS | Data Portability ---
Author Organization [place] - [facility] - [place] & [facility] ADMIN Address [address] [place] [id number] Assessment No assessment recorded. Plan of Treatment Reminders Order Date Submit Date Provider Last Modified By Organization Details Last Modified Time Details Appointments None record ed. Lab None record ed. Referral None record ed. Procedures None record ed. Surgeries None record ed. Imaging None record ed. Medication Orders None record ed. Patient TargetsNo targets recorded. Patient Instructions Encounter Date Encounter Id Patient Instructions Last Modified By Organization Details Last Modified Time 01/01/2022 [id number] Was able to remove cerumen from the [...] for routine cleaning or sooner if needed. [email or web address] Not available 01/01/2022 09:15:23 07/16/2022 [id number] Mr. Gregorio left tympanic membrane perforation has apparently healed in a monomeric fashion. It has been over 3 years since we have done a hearing test and would like to get that scheduled at his earliest convenience. Not available 07/16/2022 08:54:25 07/30/2022 [id number] 1-Discussed findings with Mr. Gregorio and Dr. Kirsten Brown MD. 2-F/u annually to monitor. Not available 07/30/2022 09:57:25 01/06/2024 [id number] Follow up in 1 year for cerumen cleaning call sooner as needed. Not available 01/06/2024 16:59:09 Reason for Referral [...] sensorine ural hearing loss of left ear 82948899218 107 Active 2017 ICD-10: H90.A32 - Mixed conductiv e and sensorine ural hearing loss, unilatera l, left ear with restricte d hearing on the contralat eral side Not Available [facility] 2 11:43:30 Restless legs 54184444 Active Cely Wm null, [place] - [facility] - [place] & [place] 2 15:13:42 Migraine without aura 09431904 Active Cely [place]m [place], [place] - [facility] - [place] & [place] 2 15:13:42 Chronic frontal sinusitis 30492302 Active Cely Wm null, [place] - [facility] - [facility] & [place] 2 15:13:42 Dyslipide jamshid 176530606 Active Cely Wm [place] - [facility] - [facility] & [place] 2 15:13:42 Bilateral tympanosc lerosis 24017286466 878220 Active Cely Wm null[place] - [facility] - [facility] & [place] 2 15:13:42 Migraine without aura, not refractor y 090414951 Active Cely Wm null, [place] - [facility] - [facility] & [place] 2 15:13:42 Deviated nasal septum 259905419 Active Cely Wm [place], [place] - [facility] - [facility] & [place] 2 15:13:42 Dysfuncti on of left eustachia n tube 46442173825 47885 Active Cely Wm null[place] - [facility] - [facility] & [place] 2 15:13:42 Dysfuncti on of eustachia n tube 43547379 Active Cely Wm null, [place] - [facility] - [facility] & [place] 2 15:13:42 Backache 053084213 Active Cely Wm null, [facility] - [place] & [place] 2 15:13:42 Asymmetri trent sensorine ural hearing loss 228691386 Active Cely Wm null, CEDRICK Rebolledo [facility] - & [place] 2 15:13:42 Disorder of thyroid gland 31014497 Active Cely Wm null, [facility]ICK Rebolledo [facility] - & [place] 2 15:13:42 Central perforati on of tympanic membrane 58382036 Active Cely Wm null, [facility] Rebolledo [facility] - & [place] 2 15:13:42 Perforati on of tympanic membrane 79549905 Active Cely Wm null, [facility] Rebolledo [facility] - & [place] 2 15:13:42 Counselin g about tobacco use Active Cely Wm null, [facility] Rebolled[facility] & 2 15:13:42 Chronic pain 65012771 Active Cely Wm null, [facility] & 2 15:13:42 Hand cramps 624818713 Active Cely Wm null, [facility]EDRICK Rebolledo [facility] - & 2 15:13:42 Gastritis 9159304 Active Cely Wm null, CEDRICK Rebolledo NT & 2 15:13:42 Acute back pain with sciatica 868846060 Active Cely Wm null, [facility] - [place] & [place] 2 15:13:42 Hearing loss of left ear 116938824 Active Cely Wm null, CEDRICK Rebolledo [facility] - [place] & [place] 2 15:13:42 Chronic maxillary sinusitis 21853091 Active Cely Wm null, [facility] - & [place] 2 15:13:42 Mixed hyperlipi demia 508097934 Active Cely Wm null, [place] - [facility] - & [place] 2 15:13:42 Lesion of penis 338157127 Active Cely Wm null[place] - [facility] - & [place] 2 15:13:42 Prediabet es 884624171 Active C[place] [facility] - & [place] 2 15:13:42 Chest pain 02242505 Active Cely [place]m [place] [facility] - & [place] 2 15:13:42 Recurrent major depressiv e episodes, moderate 266938599 Active Cely [place] [facility] - & [place] 2 15:13:42 Essential hypertens ion 63786341 Active C[place] [facility] - & [place] 2 15:13:42 Refractor y migraine without aura 841070974 Active C[place] [facility] - & [place] 2 15:13:42 Nasal obstructi on 809826844 Active C[place] [facility] - & [place] 2 15:13:42 Refractor y migraine 720280859 Active Cely [place] [facility] - & [place] 2 15:13:42 Impacted cerumen in left ear 81718864911 68213 Active Cely [place] [facility] - & [place] 2 15:13:42 Allergic rhinitis 27692776 Active C[place] [facility] - & [place] 2 15:13:42 Acute maxillary sinusitis 34142067 Active Cely [place] [facility] - & [place] 2 15:13:42 Sciatica 31732797 Active Cely [place] [facility] - & [place] 2 15:13:42 Headache disorder 594186120 Active C[place] [facility] - & [place] 2 15:13:42 Acute upper respirato ry infection 07780274 Active C[place] [facility] - & 2 15:13:42 Hiatal hernia 85170671 Active Cely Wm null, [facility] - & 2 15:13:42 Chronic rhinitis 73311003 Active Cely Wm null, CEDIRCK Rebol[facility]o [facility] - [place] & 2 15:13:42 Esophagit is 26838446 Active Cely Wm null, [facility] - & 2 15:13:42 Slow transit constipat ion 79774052 Active Cely Wm null, [facility] - & 2 15:13:42 Chronic obstructi ve pulmonary disease 81855538 Active Cely Wm null, [facility] Re[facility]le[facility] - & 2 15:13:42 Unilatera l mixed conductiv e and sensorine ural hearing loss with unrestric gissell hearing on the contralat eral side Active Cely Wm null, [facility] - & 2 15:13:42 Tobacco dependenc e syndrome 60530228 Active Cely Wm null, [facility] - & 2 15:13:42 Atrophic flaccid tympanic membrane 39138275 Active Cely Wm null, [facility] - & 2 15:13:43 Tobacco user 865354353 Active Cely Wm null, [facility] - & 2 15:13:43 Fistula of middle ear 189024395 Active Cely Wm null, [facility] - [place] & 2 15:13:43 Migraine 11145345 Active Cely Wm null, [facility] - [place] & 2 15:13:43 Insomnia 032756897 Active Cely Wm null, [facility] - [place] & 2 15:13:43 Sensorine ural hearing loss 82635212 Active Cely Wm null, [facility] - [place] & 2 15:13:43 Gastroeso phageal reflux disease 996603549 Active Cely Wm null, [facility] Rebol[facility] & [place] 2 15:13:43 Acute exacerbat ion of chronic obstructi ve pulmonary disease 936520449 Active Cely Wm null, [facility] & [place] 2 15:13:43 Hyperlipi demia 40628291 Active Cely Wm null, [facility] & [place] 2 15:13:43 Nasal deviation 972794082 Active Cely Wm null, [facility] - [place] & [place] 2 15:13:43 Gastroeso phageal reflux disease without esophagit is 275788246 Active Cely Wm null, [facility] & [place] 2 15:13:43 Obstructi ve sleep apnea syndrome 94506525 Active Cely Wm null, [facility] & [place] 2 15:13:43 Anxiety 49189884 Active Cely Wm null, [facility] & [place] 2 15:13:43 Sensorine ural hearing loss of bilateral ears 447557780 Active Cely Wm null, [facility] & [place] 2 15:13:43 Chronic ethmoidal sinusitis 17938798 Active Cely Wm null, [facility] & [place] 2 15:13:43 Constipat ion 95079891 Active Cely Wm null, [facility] & [place] 2 15:13:43 Nasal congestio n 42741903 Active Cely Wm null, [facility] & [place] 2 15:13:43 Notes:Some problems listed i n Document: #[id number] could not be added to this patient's chart. Please review this document and add these problems to the patient's chart manually as needed. Problem Notes None recorded. Procedures Surgical History Date Name Laterality Status Provider Name and Address Organization Details Recorded Time 01/02/20 22 Cerumen removal with microscope completed Tyson Rebolledo [facility] & [place] 01/01/2022 09:14:49 hernia repair completed Rachell PHILIP [facility] & [place] 01/01/2022 09:03:46 cardiac catheterization completed Rachell PHILIP [facility] & [place] 01/01/2022 09:04:01 PE Tubes completed Rachell PHILIP [facility] & [place] 01/01/2022 09:04:09 colonoscopy completed Rachell Verasence [facility] & [place] 01/01/2022 09:04:16 Imaging Results None recorded. Procedure Notes None recorded. Medical Equipment None Reported. Allergies Allergen ID Allergen Name Allergen Category Reaction Reaction Severity Criticality Documentation Date Start Date Code Code System Note Provider Name and Address Organization Details Recorded Time 2485 penicilli n G Not available rash Not available Not available 12/19/2021 7980 RxNorm Cely Burk karla, CEDRICK Rebolledo [facility] & [place] 15:13:41 Medications Name Sig Start Date Stop [...] Updated DateTime 3 191.77 cm 23.9 kg/m2 53305.9 2 g 96.9 [degF] 62 /min 128 mm[Hg] 60 mm[Hg] Rachell Rebolledo [facility] & [place] 3 08:21:21 Date Recorded Body height Body mass index (BMI) Body weight Body temperature Heart rate Systolic blood pressure Diastolic blood pressure Provider Name and Address Organization Details Last Updated DateTime 2 191.77 cm 22.9 kg/m2 38588.4 6 g 96.9 [degF] 64 /min 142 mm[Hg] 93 mm[Hg] Rachell ORTEZ [facility] & [place] 2 09:01:56 Date Recorded Body height Body mass index (BMI) Body weight Body temperature Provider Name and Address Organization Details Last Updated DateTime 01/06/2024 191.77 cm 25.9 kg/m2 60812.4 g 97 [degF] Rachell ORTEZ [facility] & [place] 01/06/2024 13:57:42 Social History None recorded. Functional Status None recorded. Mental Status None recorded. Family History Nothing Reported. Medical History Condition Response Allergies/Hayfever N Heart Problems N Heart Conditions N Emphysema N Migraines N Thyroid Problems N Developmental Delay N Depression Y Glaucoma N Anemia N Immune System Disorder N Anesthesia Complications N Heart Attack (HI) N Anxiety Disorder N Diabetes N Bleeding Disorder N Arthritis N Hearing Loss Y Tuberculosis N Acid Reflux (GERD) N Hyperlipidemia Y Cancer N Stroke N Asthma N Sleep Disorder N GERD/Reflux N Heart Disease N Headaches Y Fibromyalgia N Hypertension N Speech Delay N Kidney Disease N Immunizations Vaccine Type Date Status Note Provider Nam e and Address Organization Details Recorded Time Influenza, split virus, trivalent, preservative 5 completed [facility] Wm null, [facility] & [place] 12/19/2021 15:13:43 Influenza, split virus, trivalent, PF 7 completed [facility] Wm null, [facility] & [place] 12/19/2021 15:13:43 Influenza, MDCK, quadrivalent, PF 8 completed Cely Wm null, [place] - [facility] & [place] 12/19/2021 15:13:43 Influenza, MDCK, quadrivalent, PF 8 completed Not Available [facility] 12/23/2021 10:30:57 Influenza, split virus, trivalent, preservative 5 completed Not Available [facility] 12/23/2021 10:30:57 Influenza, split virus, trivalent, PF 7 completed Not Available [facility] 12/23/2021 10:30:57 Past Encounters Encounter ID Performer Location Encounter Start Date Encounter Closed Date Diagnosis/Indication Diagnosis SNOMED-CT Code Diagnosis ICD10 Code Diagnosis Note [id number] Kirsten Brown MD [facility] [address] [address] 01/01/2022 08:51:01 01/01/2022 09:11:12 Impacted cerumen in left ear 3983942334 684240 H61.22 [id number] Kirsten Brown MD [facility] [address] [facility] [place] [address] 07/16/2022 08:16:26 07/16/2022 08:43:32 Central perforation of tympanic membrane 81399674 H72.02 Perforatio n on the left has closed. No cerumen seen. Will have him get an audiogram seeing as though it has been over three years since the last one. I will see him back as needed. Asymmetric al sensorineural hearing loss 312592401 H90.5 [id number] DAR ALY [facility] [place] [address] 8 07/30/2022 09:45:16 07/30/2022 09:57:45 Sensorineural hearing loss 81845889 H90.3 [id number] Kirsten Brown MD [facility] [place] [id number] 01/06/2024 13:19:06 01/06/2024 14:15:02 Bilateral tympanosclerosis 0595726463 7565707 H74.03 Healed per foration of ear drum 38686696 Z86.69 Tobacco de pendence syndrome 92895419 F17.200 Health Concerns Section Related Observation LastModified by Organization Detai ls LastModified Time None Recorded Concern Status LastModified by Organization Details LastModified Time None Recorded Advance Directives Directive None Recorded Payers Insurance Date Sequence Insurance Name Policy Number Policy Nguyễn Covered Member ID Nguyễn Member ID Guarantor Name 01/06/2024 1 [facility] (MEDICAID REPLACEMENT - HMO) [place] Gregorio [id number] [place] Gregorio 05/18/2019 1 *SELF PAY* Wendy Gregorio 04/18/2019 UNSPECIFIED REMIT PAYOR [place] Gregorio 01/06/2024 1 [facility] (MEDICAID REPLACEMENT - HMO) Guan[place] Gregorio [id number] Gu[place] Gregorio Notes Date Note Type Note Provider Name and Address Organization Details Recorded Time 01/01/2022 text/html 56yo male return s to the office for regular check up on both ears and cerumen impaction. He has been using sweet oil in both ears. Feels as though his left ear is clogged. Denies any drainage or pain. Kirsten Brown MD [address], [place], [address], [facility] & [place] 01/01/2022 10:15:46 07/16/2022 text/html 56yo male return s to the office for regular check up on both ears and cerumen impaction. He has been using sweet oil in both ears. Several weeks ago he felt his right ear was clogged . Denies any drainage or pain. Feels that hearing may be a little better. Kirsten Brown MD [address], [place], [address], [facility] & [place] 07/16/2022 08:56:53 07/30/2022 text/html Mr. Gregorio wa s seen today for an audiologic evaluation per Dr. Kirsten Brown MD. Mr. Gregorio has long-standing high freq SNHL bilaterally. He has had multiple PE tubes in the LE, however, there is no tube present this date. Otoscopic inspection was unremarkable bilaterally this date. DAR ALY [address], [place], [address], [facility] & [place] 07/30/2022 09:57:40 01/06/2024 text/html 07/16/22-56yo male returns [...] ears. Kirsten Brown MD [address], [place], [address], [facility] & [place] 01/06/2024 16:59:36
--- NOTE | 2024-10-11 13:50 | US_ITS ---
FINAL REPORT CLINICAL HISTORY: trying to identify malignancy - attempted biopsy, patient could not tolerate exam -- images of area noted. COMPARISON: CT 09/23/2024 FINDINGS: Limited sonographic images were obtained of the soft tissues of the right side of the neck of the area of reported palpable abnormality. There is a lobular hypoechoic mass measuring 3.8 x 2.3 cm concerning for neoplasm. This was previously demonstrated on CT scan. IMPRESSION: Right-sided mass concerning for neoplasm. Biopsy again recommended. Reviewed, Interpreted and Dictated by Peña Patton MD Transcribed by Janelle Quintero Authenticated and [facility]
== END 2024-10-11 23:59 | disposition home or self-care (01) ==
LOC: RAD 07:35
PROVIDERS: PCP Family Medicine; Visit Provider Student in an Organized Health Care Education/Training Program
DX: R22.1 Localized swelling, mass and lump, neck (principal); D49.0 Neoplasm of unspecified behavior of digestive system
CPT/HCPCS: 76536

== ENCOUNTER 2024-10-21 07:26 | Outpatient (CLI) | payer MEDICAID, SELFPAY ==
[2024-10-21] VITALS (15 sets, daily range): BP systolic 117–144; BP diastolic 63–91; PULSE 60–82; RESP 15–17; TEMP 36.1–36.4; O2SAT 93–98; BMI 33.0
--- OUTSIDE RECORDS SUMMARY | 2024-10-21 07:28 | XMS_ITS | Data Portability ---
Author Organization [place] - [facility] - [place] & [facility] ADMIN Address [address] [place] [id number] Assessment No assessment recorded. Plan of Treatment [...] By Organization Details Last Modified Time 01/01/2022 [id number] Was able to remove cerumen from the [...] for routine cleaning or sooner if needed. [email or web address] Not available 01/01/2022 09:15:23 07/16/2022 [id number] Mr. Gregorio left tympanic membrane perforation has apparently healed in a monomeric fashion. It has been over 3 years since we have done a hearing test and would like to get that scheduled at his earliest convenience. Not available 07/16/2022 08:54:25 07/30/2022 [id number] 1-Discussed findings with Mr. Gregorio and Dr. Kirsten Brown MD. 2-F/u annually to monitor. [email or web address] Not available 07/30/2022 09:57:25 01/06/2024 [id number] Follow up in 1 year for cerumen [...] sensorine ural hearing loss of left ear [id number] 107 Active 2017 ICD-10: H90.A32 - Mixed conductiv e and sensorine ural hearing loss, unilatera l, left ear with restricte d hearing on the contralat eral side Not Available [facility] 2 11:43:30 Restless legs 02289888 Active Cely Wm null, [place] - [facility] - [place] & [place] 2 15:13:42 Migraine without aura 31303337 Active Cely Wm [place], [place] - [facility] - [place] & [place] 2 15:13:42 Chronic frontal sinusitis 95529634 Active Cely Wm null, [place] - [facility] - [facility] & [place] 2 15:13:42 Dyslipide jamshid 879281322 Active Cely Wm null, [place] - [facility] - [facility] & [place] 2 15:13:42 Bilateral tympanosc lerosis 02070567422 221321 Active Cely Wm null[place] - [facility] - [facility] & [place] 2 15:13:42 Migraine without aura, not refractor y 995261136 Active Cely Wm null[place] - [facility] - [facility] & [place] 2 15:13:42 Deviated nasal septum 118369565 Active Cely Wm [place] - [facility] - [facility] & [place] 2 15:13:42 Dysfuncti on of left eustachia n tube 10176048281 32912 Active Cely Wm null[place] - [facility] - [facility] & [place] 2 15:13:42 Dysfuncti on of eustachia n tube 64569423 Active Cely Wm null, [place] - [facility] - [facility] & [place] 2 15:13:42 Backache 200290134 Active Cely Wm null, [facility] - [place] & [place] 2 15:13:42 Asymmetri trent sensorine ural hearing loss 433485283 Active Cely Wm null, CEDRICK Rebolledo [facility] - & [place] 2 15:13:42 Disorder of thyroid gland 63686098 Active Cely Wm null, [facility] Rebolled[facility] - & [place] 2 15:13:42 Central perforati on of tympanic membrane 02765963 Active Cely Wm null, [facility] Re[facility] - & [place] 2 15:13:42 Perforati on of tympanic membrane 46854684 Active Cely Wm null, [facility] - & [place] 2 15:13:42 Counselin g about tobacco use Active Cely Wm null, [facility] & 2 15:13:42 Chronic pain 04217043 Active Cely Wm null, [facility] & 2 15:13:42 Hand cramps 211946428 Active Cely Wm null, [facility] Rebol[facility] - & 2 15:13:42 Gastritis 1594311 Active Cely Wm null, CEDRICK Rebolledo [facility] & 2 15:13:42 Acute back pain with sciatica 585820481 Active Cely Wm null, [facility] - [place] & [place] 2 15:13:42 Hearing loss of left ear 917138890 Active Cely Wm null, [facility] Rebolledo [facility] - [place] & [place] 2 15:13:42 Chronic maxillary sinusitis 55815198 Active Cely Wm null, [facility] - & [place] 2 15:13:42 Mixed hyperlipi demia 349762120 Active Cely Wm null, [place] - [facility] - & [place] 2 15:13:42 Lesion of penis 324764665 Active Cely Wm [place] - [facility] - & [place] 2 15:13:42 Prediabet es 970777660 Active Cely [place] [facility] - & [place] 2 15:13:42 Chest pain 14685767 Active Cely [place] [facility] - & [place] 2 15:13:42 Recurrent major depressiv e episodes, moderate 630426399 Active Cely [place] [facility] - & [place] 2 15:13:42 Essential hypertens ion 93067037 Active Cely [place] [facility] - & [place] 2 15:13:42 Refractor y migraine without aura 722913841 Active Cely [place] [facility] - & [place] 2 15:13:42 Nasal obstructi on 826618195 Active Ceyl Wm [place] [facility] - & [place] 2 15:13:42 Refractor y migraine 692087617 Active C[place] [facility] - & [place] 2 15:13:42 Impacted cerumen in left ear 96578977993 60692 Active Cely [place] [facility] - & [place] 2 15:13:42 Allergic rhinitis 75626474 Active Cely [place]m [place] [facility] - & [place] 2 15:13:42 Acute maxillary sinusitis 67007335 Active Cely [place] [facility] - & [place] 2 15:13:42 Sciatica 27370748 Active Cely [place]m [place] [facility] - & [place] 2 15:13:42 Headache disorder 660700327 Active Cely [place] [facility] - & [place] 2 15:13:42 Acute upper respirato ry infection 10953552 Active Cely [place]m [place] [facility] - & 2 15:13:42 Hiatal hernia 18874004 Active Cely Wm null, [facility] - & 2 15:13:42 Chronic rhinitis 92114763 Active Cely Wm null, [facility] - [place] & 2 15:13:42 Esophagit is 43459924 Active Cely Wm null, [facility] - & 2 15:13:42 Slow transit constipat ion 89819494 Active Cely Wm null, [facility] - & 2 15:13:42 Chronic obstructi ve pulmonary disease 57363367 Active Cely Wm null, [facility] - & 2 15:13:42 Unilatera l mixed conductiv e and sensorine ural hearing loss with unrestric gissell hearing on the contralat eral side Active Cely Wm null, [facility] - & 2 15:13:42 Tobacco dependenc e syndrome 67357717 Active Cely Wm null, [facility] - & 2 15:13:42 Atrophic flaccid tympanic membrane 07383564 Active Cely Wm null, [facility] - & 2 15:13:43 Tobacco user 122682805 Active Cely Wm null, [facility] - & 2 15:13:43 Fistula of middle ear 808755949 Active Cely Wm null, [facility] - [place] & 2 15:13:43 Migraine 17324711 Active Cely Wm null, [facility] - [place] & 2 15:13:43 Insomnia 288275582 Active Cely Wm null, [facility] - [place] & 2 15:13:43 Sensorine ural hearing loss 79388496 Active Cely Wm null, [facility] - [place] & 2 15:13:43 Gastroeso phageal reflux disease 811775804 Active Cely Wm null, [facility] & [place] 2 15:13:43 Acute exacerbat ion of chronic obstructi ve pulmonary disease 852045278 Active Cely Mw null, [facility] & [place] 2 15:13:43 Hyperlipi demia 08680607 Active Cely Wm null, [facility] & [place] 2 15:13:43 Nasal deviation 770422477 Active Cely Wm null, [facility] - [place] & [place] 2 15:13:43 Gastroeso phageal reflux disease without esophagit is 643002920 Active Cely Wm null, [facility] & [place] 2 15:13:43 Obstructi ve sleep apnea syndrome 05478411 Active Cely Wm null, [facility] & [place] 2 15:13:43 Anxiety 89176795 Active Cely Wm null, [facility] & [place] 2 15:13:43 Sensorine ural hearing loss of bilateral ears 082845367 Active Cely Wm null, [facility] & [place] 2 15:13:43 Chronic ethmoidal sinusitis 24921706 Active Cely Wm null, [facility] & [place] 2 15:13:43 Constipat ion 36207397 Active Cely Wm null, [facility] & [place] 2 15:13:43 Nasal congestio n 40708097 Active Cely Wm null, [facility] & [place] 2 15:13:43 Notes:Some problems listed i n Document: #[id number] could not be added to this patient's chart. Please review this document and add these problems to the patient's chart manually as needed. Problem Notes None recorded. Procedures Surgical History Date Name Laterality Status Provider Name and Address Organization Details Recorded Time 01/02/20 22 Cerumen removal with microscope completed Tyson Rebolledo [facility] & [place] 01/01/2022 09:14:49 hernia repair completed Rachell PHILIP [facility] & [place] 01/01/2022 09:03:46 cardiac catheterization completed Rachell PHILIP [facility] & [place] 01/01/2022 09:04:01 PE Tubes completed Rachell PHILIP [facility] & [place] 01/01/2022 09:04:09 colonoscopy completed Rachell Verasence [facility] & [place] 01/01/2022 09:04:16 Imaging Results None recorded. Procedure Notes None recorded. Medical Equipment None Reported. Allergies Allergen ID Allergen Name Allergen Category Reaction Reaction Severity Criticality Documentation Date Start Date Code Code System Note Provider Name and Address Organization Details Recorded Time 2485 penicilli n G Not available rash Not available Not available 12/19/2021 7980 RxNorm Cely Burk karla, CEDRICK Rebolledo [facility] & [place] 15:13:41 Medications Name Sig Start Date Stop [...] Body weight Body temperature Heart rate Systolic And Diastolic Provider Name and Address Organization Details Last Updated DateTime 3 191.77 cm 23.9 kg/m2 61800.9 2 g 96.9 [degF] 62 /min 128/60 mm[Hg] Rachell [facility] & [place] 3 08:21:21 Date Recorded Body height Body mass index (BMI) Body weight Body temperature Heart rate Systolic And Diastolic Provider Name and Address Organization Details Last Updated DateTime 2 191.77 cm 22.9 kg/m2 50321.4 6 g 96.9 [degF] 64 /min 142/93 mm[Hg] [facility] [place] 2 09:01:56 Date Recorded Body height Body mass index (BMI) Body weight Body temperature Provider Name and Address Organization Details Last Updated DateTime 01/06/2024 191.77 cm 25.9 kg/m2 92612.4 g 97 [degF] Rachell [facility] & [place] 01/06/2024 13:57:42 Social History None recorded. Functional Status None recorded. Mental Status None recorded. Family History Nothing Reported. Medical History Condition Response Allergies/Hayfever N Heart Problems N Heart Conditions N Emphysema N Migraines N Thyroid Problems N Developmental Delay N Depression Y Glaucoma N Anemia N Immune System Disorder N Anesthesia Complications N Heart Attack (MN) N Anxiety Disorder N Diabetes N Bleeding Disorder N Arthritis N Hearing Loss Y Tuberculosis N Acid Reflux (GERD) N Hyperlipidemia Y Cancer N Stroke N Asthma N Sleep Disorder N GERD/Reflux N Heart Disease N Fibromyalgia N Headaches Y Hypertension N Speech Delay N Kidney Disease N Immunizations Vaccine Type Date Status Note Provider Nam e and Address Organization Details Recorded Time Influenza, split virus, trivalent, preservative 5 completed Cely Wm null, [facility] & [place] 12/19/2021 15:13:43 Influenza, split virus, trivalent, PF 7 completed Cely Wm null, [facility] & [place] 12/19/2021 15:13:43 Influenza, MDCK, quadrivalent, PF 8 [facility] & [place] 12/19/2021 15:13:43 Influenza, MDCK, quadrivalent, PF 8 completed Not Available [facility] 12/23/2021 10:30:57 Influenza, split virus, trivalent, preservative 5 completed Not Available [facility] 12/23/2021 10:30:57 Influenza, split virus, trivalent, PF 7 completed Not Available [facility] 12/23/2021 10:30:57 Past Encounters Encounter ID Performer Location Encounter Start Date Encounter Closed Date Diagnosis/Indication Diagnosis SNOMED-CT Code Diagnosis ICD10 Code Diagnosis Note [id number] Kirsten Brown MD [facility] [address] [address] 01/01/2022 08:51:01 01/01/2022 09:11:12 Impacted cerumen in left ear 6172570223 936324 H61.22 [id number] Kirsten Brown MD [facility] [address] [address] 07/16/2022 08:16:26 07/16/2022 08:43:32 Central perforation of tympanic membrane 38369226 H72.02 Perforatio n on the left has closed. No cerumen seen. Will have him get an audiogram seeing as though it has been over three years since the last one. I will see him back as needed. Asymmetric al sensorineural hearing loss 290100341 H90.5 [id number] DAR ALY [facility] [address], [address] [place] [address] 8 07/30/2022 09:45:16 07/30/2022 09:57:45 Sensorineural hearing loss 42903557 H90.3 [id number] Kirsten Brown MD [facility] [address], [address] [place] [phone] 01/06/2024 13:19:06 01/06/2024 14:15:02 Bilateral tympanosclerosis 7308970080 7936113 H74.03 Healed per foration of ear drum 67765486 Z86.69 Tobacco de pendence syndrome 21555160 F17.200 Health Concerns Section Related Observation LastModified by Organization Detai ls LastModified Time None Recorded Concern Status LastModified by Organization Details LastModified Time None Recorded Advance Directives Directive None Recorded Payers Insurance Date Sequence Insurance Name Policy Number Policy Nguyễn Covered Member ID Nguyễn Member ID Guarantor Name 01/06/[address] [facility] (MEDICAID REPLACEMENT - HMO) CSKY Guanaco Gregorio [id number] Guanaco Gregorio 05/18/2019 1 *SELF PAY* Ut karly Gregorio 04/18/2019 UNSPECIFIED REMIT PAYOR Guanaco Gregorio 01/06/2024 1 [facility] (MEDICAID REPLACEMENT - HMO) Guanaco Gregorio [id number] Guanaco Gregorio Notes Date Note Type Note Provider Name and Address Organization Details Recorded Time 01/01/2022 text/html 56yo male return s to the office for regular check up on both ears and cerumen impaction. He has been using sweet oil in both ears. Feels as though his left ear is clogged. Denies any drainage or pain. Kirsten Brown MD [address], [place], [address], [facility] & [place] 01/01/2022 10:15:46 07/16/2022 text/html 56yo male return s to the office for regular check up on both ears and cerumen impaction. He has been using sweet oil in both ears. Several weeks ago he felt his right ear was clogged . Denies any drainage or pain. Feels that hearing may be a little better. Kirsten Brown MD [address], [place], [address], [facility] & [place] 07/16/2022 08:56:53 07/30/2022 text/html Mr. Gregorio wa s seen today for an audiologic evaluation per Dr. Kirsten Brown MD. Mr. Gregorio has long-standing high freq SNHL bilaterally. He has had multiple PE tubes in the LE, however, there is no tube present this date. Otoscopic inspection was unremarkable bilaterally this date. DAR ALY [address], [place], [address], [facility] & [place] 07/30/2022 09:57:40 01/06/2024 text/html 07/16/22-56yo male returns [...] ears. Kirsten Brown MD [address], [place], [address], [facility] & [place] 01/06/2024 16:59:36
--- OUTSIDE RECORDS SUMMARY | 2024-10-21 07:28 | XMS_ITS | Clinical Summary ---
Author Organization Healthcare Address [address] [place] [address] Care Team Providers Care Mounter Flutes And Piccolos Name Role Phone Unavailable Primary Care Provider [...] Date Last Done Comments [facility]-Depression Screening 1967 [facility]-/Child/Adol SDOH Screenings 1965 [...] 2017 [facility]-Zoster Vaccines (1 of 2) 2017 [id number] Vaccine (1 - 20 24-25 season) 2023 [facility]-Influenza Vaccine (#1) 2024 HPV Vaccines Aged Out No longer [...]
--- NOTE | 2024-10-21 08:45 | US_ITS ---
FINAL REPORT CLINICAL HISTORY: RT NECK MASS -- RT NECK FNA -- ZENOBIA MEJIAS FINDINGS: Ultrasound guided biopsy of right submandibular lymph node. HISTORY: Right submandibularmass. PROCEDURE: After informed consent was obtained and a time-out was performed, the patient was prepped and draped in usual sterile fashion over the right neck. Utilizing local anesthesia and sterile technique access to the lesion was obtained. 618-gauge core biopsypasses were made. Adequate diagnostic material was confirmed by pathology. The patient received mild conscious sedation. The patient tolerated procedure well and left the department in good condition. IMPRESSION: Status post ultrasound guided biopsy of a right submandibular mass without immediate complication. PROCEDURAL SEDATION: 2 mg of IV Versed and 50 mcg of Fentanyl were administered. Continuous vital sign monitoring was used. An RN was present during the sedation process. Overall sedation time was 15 minutes. Films reviewed , interpreted and dictated by Dr. Tompkins. Transcribed by Zenobia Medina PA-C. Reviewed, Interpreted and Dictated by Martha Tompkins MD Transcribed by RANDELL Roman Authenticated and [facility]
== END 2024-10-21 11:30 | disposition home or self-care (01) ==
PROVIDERS: PCP Family Medicine; Visit Provider Student in an Organized Health Care Education/Training Program
DX: R22.1 Localized swelling, mass and lump, neck (principal)
CPT/HCPCS: 10005; 99152; 99153; J2250; J3010

== ENCOUNTER 2024-11-10 13:42 | Outpatient (CLI) | payer MEDICAID, SELFPAY ==
--- OUTSIDE RECORDS SUMMARY | 2024-11-04 07:48 | XMS_ITS | Encounter Summary ---
Author Organization [employer] ([place], [place], [place], [place]) Address [address] [place] [address] Care Team Providers Care Photoengraving Sketch Maker Name Role Phone Unavailable Primary Care Provider Unavailabl e Reason for Referral * CAT Scan (Routine) - New Request Specialty Diagnoses / Procedures Referred By Esteban de oliveira Referred To Contact Radiology Diagnoses Malignant neoplasm of pharynx, unspecified (HCC) Procedures PET/CT Skull Base-Mid Thigh (Whole Body) Dae Rowe MD [address] [place] [address] Phone: tel: fax: Referral ID Status Reason Start Date Expiration Date V isits Requested Visits Authorized [id number] New Request 11/01/2024 11/01/2025 1 1 Reason for Visit * CAT Scan (Routine) - New Request Specialty Diagnoses / Procedures Referred By Esteban de oliveira Referred To Contact Radiology Diagnoses Malignant neoplasm of pharynx, unspecified (HCC) Procedures PET/CT Skull Base-Mid Thigh (Whole Body) Dae Rowe MD [address] [place] [address] Phone: tel: fax: Referral ID Status Reason Start Date Expiration Date V isits Requested Visits Authorized [id number] New Request 11/01/2024 11/01/2025 1 1 Encounter Details Date Type Department Care Team (Late st Contact Info) Description 11/04/2024 7:48 AM EDT - 11/04/2024 11:59 PM EDT Hospital Encounter [facility] PET CT - [address] [place] [phone] Dae Rowe MD [address] [place] [address] Malignant neoplasm of pharynx, unspecified (HCC) Discharge [...] by Cheko Medina PA-C. Dae Rowe MD [facility] [place] Final Resul t documented in this encounter Visit Diagnoses Diagnosis Malignant neoplasm of pharynx, unspecified (HCC) Malignant neoplasm of pharynx, unspecified documented in this encounter
--- OUTSIDE RECORDS SUMMARY | 2024-11-10 13:44 | XMS_ITS | Clinical Summary ---
Author Organization [employer] ([place], [place], [place], [place]) Address [address] [place] [address] Care Team Providers Care Sulphate Tester Name Role Phone Unavailable Primary Care Provider Unavailabl e Encounters Date Type Department Care Team Description 11/04/2024 7:48 AM EDT - 11/04/2024 11:59 PM EDT Hospital Encounter [facility] PET CT - [address] [place] [phone] Dae Rowe MD Malignant neoplasm of pharynx, unspecified (HCC) Discharge Disposition: Home or Self Care from Last 3 Months Social History Tobacco Use Types Packs/Day Years Used Date Smoking Tobacco: Never Assessed Sex and Gender Information Value Date Recorded Sex Assigned at Not on file Legal Sex Male 5:20 PM CDT Gender Identity Not on file Sexual Orientation Not on file Plan of Treatment Health Maintenance Due Date Last Done Comments CT Colonography 1967 Colonoscopy 1967 Colorectal Cancer Screening 1967 FOBT/FIT 1967 Fit-DNA (Cologuard) 1967 Sigmoidoscopy 1967 Depression Screening (12+) 1979 Tobacco Cessation Counseling and Screening (12+) 1979 HIV Screening 1982 Hepatitis C Screening 1985 Lipid Panel 2002 Pneumococcal 50+ years (1 of 1 - PCV) 2017 Shingles Vaccine (Zoster) (1 of 2) 2017 DTAP/TDAP/TD VACCINES (3 - Td or Tdap) 06/28/2022, 08/07/2005 COVID-19 VACCINE ( - season) 2023 Influenza Vaccine (#1) 2024 02/18/2018 Procedures Procedure Name Priority Date/Time Associated Diagnosis Comments P.E.T./CT SKULL BASE TO MID-THIGH Routine 11/04/2024 10:19 AM EDT Malignant neoplasm of pharynx, unspecified (HCC) from Last 3 Months Results * PET/CT Skull Base-Mid Thigh (Whole [...] by Cheko Medina PA-C. Dae Rowe MD IM CT ORDERABLES Final Resul t from Last 3 Months Insurance [facility] MEDICAID
--- OUTSIDE RECORDS SUMMARY | 2024-11-10 13:44 | XMS_ITS | Clinical Summary ---
Author Organization [facility] Address [address] [place] [phone] Care Team Providers Care Optical Instrument Assembler Name Role Phone Talia Krishna Primary Care Provider Allergies Active Allergy Reactions Criticality Noted Date Comments Penicillins 07/26/2015 Medications aspirin 81 MG EC tablet Take by mouth. 4 Active atorvastatin (LIPITOR) 40 MG tablet Take by mouth. 4 Active isosorbide mononitrate (IMDUR) 30 MG 24 hr tablet Take by mouth. 4 Active omeprazole (PriLOSEC) 20 MG capsule Take by mouth. 4 Active propranolol (INDERAL) 80 MG tablet Take by mouth. 4 Active sertraline (ZOLOFT) 50 MG tablet Take by mouth. 4 Active SUMAtriptan (IMITREX) 100 MG tablet Take one tablet at onset of headache. May repeat dose one time in 2 hours if headache not relieved. 4 Active SUMAtriptan (IMITREX) 50 MG tablet Take one tablet at onset of headache. May repeat dose one time in 2 hours if headache not relieved. 4 Active topiramate (TOPAMAX) 100 MG tablet Take 1 tablet by mouth every night. 4 Active topiramate (TOPAMAX) 50 MG tablet Take 0.5 tablets by mouth every morning. Increase as tolerated and needed every week up to 2 tablets po QAM 5 Active metoprolol succinate XL (TOPROL-XL) 50 MG 24 hr tablet 6 Active chlorproMAZINE (THORAZINE) 25 MG tablet Take 1 tablet by mouth every 4 (four) hours as needed (04/14 to 1 04/14 tab po PRN headache). 90 tablet 6 Active Social History Tobacco Use Types Packs/Day Years Used Date Smoking Tobacco: Every Day Alcohol Use Standard Drinks/Week Comments No 0 (1 standard drink = 0.6 oz pur e alcohol) Abuse Screen Answer Date Recorded Unsafe at Home or Work/School Not on file Feels Threatened by Someone? Not on file 02/2023 Does Anyone Keep You from Co ntacting Others or Doint Things Outside the Home? Not on file 01/21/2023 Physical Sign of Abuse Present Not on file 1 Housing Stability Answer Date Recorded Current Living Arrangements Not on file 01/11 Potentially Unsafe Housing Conditions Not on taurus e 01/21/2023 Family and Community Support Answer Rowdy e Recorded Help with Day-to-Day Activities Not on file 01/21/2023 Lonely or Isolated Not on file 01/21/2023 Employment Answer Date Recorded Do you want help finding or keeping work or a elvia b? Not on file 01/21/2023 Disabilities Answer Date Recorded Concentrating, Remembering, or Making Decisions Difficulty Not on file 01/21/2023 Doing Errands Independently Difficulty Not on fi le 01/21/2023 Education Answer Date Recorded Help with school or training? Not on file Preferred Language Not on file 01/21/2023 Sex and Gender Information Value Date Recorded Sex Assigned at Not on file Legal Sex Male 12:15 PM EDT Gender Identity Not on file Sexual Orientation Not on file Last Filed Vital Signs Vital Sign Reading Time Taken Comments Blood Pressure 114/70 08/14/2015 11:23 AM EDT Pulse - - Temperature - - Respiratory Rate - - Oxygen Saturation - - Inhaled Oxygen Concentration - - Weight 89.4 kg (197 lb) 08/14/2015 11:23 AM EDT Height 190.5 cm (6' 3 ) 08/14/2015 11:23 AM EDT Body Mass Index 24.62 08/14/2015 11:23 AM EDT Plan of Treatment Health Maintenance Due Date Last Done Comments ANNUAL PHYSICAL 1967 HEPATITIS C SCREENING 1967 TDAP/TD VACCINES (1 - Tdap) 1986 COLOGUARD 2012 COLON CANCER SCREENING 5 YEAR SIGMOIDOSCOPY 2012 COLONOSCOPY [address] CANCER SCREENING 2012 CT COLONOGRAPHY 2012 FECAL OCCULT BLOOD TEST 2012 FIT Testing (1 year) 2012 Pneumococcal Vaccine 50+ (1 of 1 - PCV) 2017 ZOSTER VACCINE (1 of 2) 2017 COVID-19 Vaccine (1 - 2023- season) 2023 INFLUENZA VACCINE 01/11/2025 Insurance Care Teams Optical Instrument Assembler Relationship Specialty Start Date End Date Talia Krishna PA PCP - General Physician Professor Of Pathology 07/22/15
--- OUTSIDE RECORDS SUMMARY | 2024-11-10 13:44 | XMS_ITS | Referral Summary ---
Author Organization [employer] ([place], [place], [place], [place]) Address [address] [place] [address] Care Team Providers Care Motivational Speaker Name Role Phone Unavailable Primary Care Provider Unavailabl e Encounters Date Type Department Care Team Description 11/04/2024 7:48 AM EDT - 11/04/2024 11:59 PM EDT Hospital Encounter [facility] PET CT - [address] [place] [address] Dae Rowe MD Malignant neoplasm of pharynx, [...] Orientation Not on file Plan of Treatment Not on file Procedures Procedure Name Priority Date/Time Associated Diagnosis [...] Linn Love. Transcribed by Cheko Medina PA-C. us Dae Rowe MD IMG CT ORDERABLES Final Resul t from Last 3 Months Insurance [facility] MEDICAID
--- OUTSIDE RECORDS SUMMARY | 2024-11-10 13:44 | XMS_ITS | Clinical Summary ---
Author Organization [facility] Address [address] [place] [address] Care Team Providers Care Bioinformatics Research Technician Name Role Phone Unavailable Primary Care Provider [...] 2017 UKY-Zoster Vaccines (1 of 2) 2017 [id number]-15 Vaccine (1 - 20 24-25 season) 2023 [...] patient's age to complete [place] [id number]
[2024-11-10 14:49] LABS: Hematocrit 38.8 % (42.0-52.0); Hemoglobin 13.4 g/dL (14.1-18.0); Immature Granulocytes % 0.3 %; Mean Corpuscular HGB Conc 34.5 g/dL (31.8-35.4); Mean Corpuscular Hemoglobin 33.6 pg (27.0-31.2); Mean Corpuscular Volume 97.2 fl (80-94); Nucleated Red Blood Cells % 0 %; Platelet Count 217 K/mm3 (142-424); Red Blood Count 3.99 M/mm3 (4.60-6.20); Red Cell Distribution Width-SD 43.5 fL; White Blood Count 6.4 K/mm3 (4.8-10.8)
[2024-11-10 15:26] LABS: Alanine Aminotransferase 19 U/L (12-78); Albumin Level 4.4 g/dl (3.5-5.0); Albumin/Globulin Ratio 2.3 (1.1-1.8); Alkaline Phosphatase 71 U/L (38-126); Anion Gap 12.3 mEq/L (5-15); Aspartate Amino Transferase 20 U/L (17-59); Bilirubin,Total 1.6 mg/dl (0.2-1.3); Blood Urea Nitrogen 15 mg/dl (9-20); Calcium 9.7 mg/dl (8.4-10.2); Carbon Dioxide 31 mmol/L (22.0-30.0); Chloride 100 mmol/L (98-107); Creatinine,Serum 1.50 mg/dl (0.66-1.25); Estimated Glomerular Filt Rate 48 ml/min (>60); GFR (African American) 58 ML/MIN (>60); Globulin 1.9 g/dL (1.3-3.2); Glucose 87 mg/dl (74-100); Potassium 4.3 mmoL/L (3.5-5.1); Sodium 139 mmol/L (136-145); Total Protein,Serum 6.3 g/dl (6.3-8.2)
== END 2024-11-10 23:59 | disposition home or self-care (01) ==
LOC: LAB 13:42
PROVIDERS: PCP Family Medicine; Visit Provider Internal Medicine Medical Oncology
DX: C01 Malignant neoplasm of base of tongue (principal)
CPT/HCPCS: 36415; 80053; 85025

== ENCOUNTER 2024-11-24 13:03 | Day surgery (SDC) | payer MEDICAID, SELFPAY ==
[2024-11-24] VITALS (9 sets, daily range): BP systolic 99–151; BP diastolic 61–90; PULSE 60–68; RESP 12–18; TEMP 36.4–36.7; O2SAT 94–99; BMI 27.5
[2024-11-24] MEDS: 0.9 % SODIUM CHLORIDE 1000ML 1,000 ML 25 ML IV (13:57)
--- NOTE | 2024-11-24 14:00 | P.PNANES_ITS ---
[facility] Disclaimer: The information contained in this section may have been updated after the patient was seen, as this information can be updated by other users. Medical History Throat cancer Tympanosclerosis of both ears Deviated septum Squamous cell carcinoma of lymph node History of diabetes mellitus Enlarged lymph nodes Abnormal findings on diagnostic imaging of heart and coronary circulation Encounter for pre-operative cardiovascular clearance Atypical angina Exertional dyspnea Depression Hyperlipidemia Migraines Hypertension Diabetes mellitus Surgical History History of colonoscopy Hx of cardiac cath H/O endoscopy History of placement of ear tubes H/O hernia repair H/O right knee surgery Family History Mother Cancer Social History (Updated 11/24/24 @ 13:39 by Tiesha Larios RN) Smoking Status: Former smoker tobacco type: cigarettes packs per day: 1 years smoked: 40 alcohol intake: never substance use type: marijuana current occupational status: disabled Travel in the last 8 weeks?: None household members: children housing: apartment Have you lived/traveled outside US in past 30 days?: No Contact w/someone who lives/traveled outside US past 30 days?: No Exposure to someone with infectious disease in past 14 days?: No Do you have a fever (greater than 100.4 F or 38 C)?: No Have you tested positive for COVID-19?: No Exposed to someone with COVID-19 in past 14 days?: No Do you have a sore throat?: No Do you have a cough?: No Do you have any weakness?: No Are you experiencing any nausea/vomitting?: No Do you have any diarrhea?: No Are you experiencing any unusual bleeding?: No Do you have any muscle aches/pain?: No Do you have any abdominal pain?: No Are you experiencing loss of taste or smell?: No [facility] Anesthesia Checklist Patient Identification Patient Identification: Arm Band Structural Data Admitted From: Home Planned Operative Procedure/s: I&D Right Neck Abscess Consent for Planned Operative Procedure(s) Verified: Yes Verified Documents: Surgical Consent and History and Physical NPO Status Verified Time NPO: 08:00 (coffee with sugar) Additional verifications Anesthesia Reactions: No Hx Blood Transfusions: No Blood Transfusion Reaction: No Airway Assessment Mallampati Score:: Class II C-Spine Mobility Assessed: Yes TMJ Mobility Assessed: Yes Dentition: Edentulous Neurological Assessment Level of Consciousness: Awake, Alert and Appropriate Anesthesia Plan Anesthesia Risk discussed: Yes Anesthesia Plan: Verified ASA Class: II Anesthesia Type: General
[2024-11-24 14:02] LABS: POC Glucose,Bedside 93 (70-110)
[2024-11-24] MEDS: CLINDAMYCIN PHOSPHATE/D5W 900 MG/50 ML PIGGYBACK 100 MG IV (14:15)
[2024-11-24] MEDS: LIDOCAINE 1% 20ML MDV 20 ML (14:22)
--- NOTE | 2024-11-24 14:33 | EXP.OP.NOTE ---
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 General anesthesia with laryngeal mask airway was induced. His right neck region was prepped and draped in a sterile fashion. An incision was made overlying the central portion of the abscess utilizing electrocautery. A pocket of purulent fluid was evacuated. Fluid was obtained for Gram stain/culture. Electrocautery was utilized to achieve hemostasis and the wound was then packed open with gauze. The entire region was infiltrated with 1% lidocaine. Dressings were applied and the patient was transferred to recovery in stable condition after removal of his laryngeal mask airway. Condition: stable Disposition: PACU Specimens:: Fluid for Gram stain/culture Complications:: No immediate
--- NOTE | 2024-11-24 14:39 | P.PNANES_ITS ---
[facility] Anesthesia Record Part I Anesthesia Record I Intake, IV Amount: 500 Hydration: Adequate Estimated blood loss (mL): 5 Urine output (mL): 0 Blood Products used (#): none Blood Pressure: 99/61 SaO2: 94 Pulse Rate: 61 Airway Patency: Patent Respiratory Rate: 12 Temperature: 97.5 F Patient is:: Drowsy and Stable Stable to PACU at:: 14:32
--- NOTE | 2024-11-25 07:18 | EXP.ANES.CKL ---
[facility] Disclaimer: The information contained in this section may have been updated after the patient was seen, as this information can be updated by other users. Medical History Throat cancer Tympanosclerosis of both ears Deviated septum Squamous cell carcinoma of lymph node History of diabetes mellitus Enlarged lymph nodes Abnormal findings on diagnostic imaging of heart and coronary circulation Encounter for pre-operative cardiovascular clearance Atypical angina Exertional dyspnea Depression Hyperlipidemia Migraines Hypertension Diabetes mellitus Surgical History History of colonoscopy Hx of cardiac cath H/O endoscopy History of placement of ear tubes H/O hernia repair H/O right knee surgery Family History Mother Cancer Social History (Updated 11/24/24 @ 13:39 by Tiesha Larios RN) Smoking Status: Former smoker tobacco type: cigarettes packs per day: 1 years smoked: 40 alcohol intake: never substance use type: marijuana current occupational status: disabled Travel in the last 8 weeks?: None household members: children housing: apartment [facility] Anesthesia Checklist Patient Identification Patient Identification: Arm Band Structural Data Admitted From: Home Planned Operative Procedure/s: Colonoscopy Consent for Planned Operative Procedure(s) Verified: Yes Verified Documents: Surgical Consent and History and Physical NPO Status Verified Time NPO: 00:00 Additional verifications Anesthesia Reactions: No Hx Blood Transfusions: No Blood Transfusion Reaction: No Airway Assessment Mallampati Score:: Class II C-Spine Mobility Assessed: Yes TMJ Mobility Assessed: Yes Dentition: Good Dentition Neurological Assessment Level of Consciousness: Awake, Alert and Appropriate Anesthesia Plan Anesthesia Risk discussed: Yes Anesthesia Plan: Verified ASA Class: II Anesthesia Type: MAC
--- NOTE | 2024-11-25 09:08 | EXP.ANES.II ---
[facility] Anesthesia Record Part II Anesthesia Record Part II Discharge Time: 15:02 Destination: Surgical Day Care (OP Surgery) PACU nurse assessment reviewed?: Yes Patient Condition:: Good Anesthesia Complications:: None Swallowing reflex intact?: Yes Airway Patency: Patent Cyanosis?: No Blood Pressure: 134/87 SaO2: 96 Respiratory Rate: 13 Pulse Rate: 68 Temperature: 97.6 F Mental Status: Alert & Oriented Pain level:: 0 Nausea and/or vomitting:: None Intake, IV Amount: 0 Hydration: Adequate
[2024-11-25 09:12] VITALS: BP 134/87; PULSE 68; RESP 13; TEMP 36.4; O2SAT 96
== END 2024-11-24 15:34 | disposition home or self-care (01) ==
PROVIDERS: PCP Family Medicine; Visit Provider Surgery
PROC: (CPT 10061; principal; 2024-11-24 13:00)
DX: L02.11 Cutaneous abscess of neck (principal); C76.0 Malignant neoplasm of head, face and neck; E11.9 Type 2 diabetes mellitus without complications; E78.5 Hyperlipidemia, unspecified; I10 Essential (primary) hypertension; Z87.891 Personal history of nicotine dependence; Z88.1 Allergy status to other antibiotic agents
CPT/HCPCS: 10061; 82962; 87070; 87205; 96374; J0736; J2003; J2250; J2704; J3010; J7030

== ENCOUNTER 2024-11-25 12:08 | Outpatient (CLI) | payer MEDICAID, SELFPAY ==
--- OUTSIDE RECORDS SUMMARY | 2024-11-04 07:48 | XMS_ITS | Encounter Summary ---
Author Organization [employer] ([place], [place], [place], [place]) Address [address] [place] [address] Care Team Providers Care Crystal Gazer Name Role Phone Unavailable Primary Care Provider Unavailabl e Reason for Referral * CAT Scan (Routine) - New Request Specialty Diagnoses / Procedures Referred By Esteban de oliveira Referred To Contact Radiology Diagnoses Malignant neoplasm of pharynx, unspecified (HCC) Procedures PET/CT Skull Base-Mid Thigh (Whole Body) Dae Rowe MD [address] [place] [address] Phone: tel: fax: Referral ID Status Reason Start Date Expiration Date V isits Requested Visits Authorized [id number] New Request 11/01/2024 11/01/2025 1 1 Reason for Visit * CAT Scan (Routine) - New Request Specialty Diagnoses / Procedures Referred By Esteban de oliveira Referred To Contact Radiology Diagnoses Malignant neoplasm of pharynx, unspecified (HCC) Procedures PET/CT Skull Base-Mid Thigh (Whole Body) Dae Rowe MD [address] [place] [address] Phone: tel: fax: Referral ID Status Reason Start Date Expiration Date V isits Requested Visits Authorized [id number] New Request 11/01/2024 11/01/2025 1 1 Encounter Details Date Type Department Care Team (Late st Contact Info) Description 11/04/2024 7:48 AM EDT - 11/04/2024 11:59 PM EDT Hospital Encounter [facility] PET CT - [address] [place] [phone] Dae Rowe MD [address] [place] [address] Malignant neoplasm of pharynx, unspecified (HCC) Discharge [...] Cheko Medina PA-C. Dae Rowe MD [facility] CT ORDERABLES Final Resul t documented in this encounter Visit Diagnoses Diagnosis Malignant neoplasm of pharynx, unspecified (HCC) Malignant neoplasm of pharynx, unspecified documented in this encounter
--- OUTSIDE RECORDS SUMMARY | 2024-11-25 12:12 | XMS_ITS | Clinical Summary ---
Author Organization [facility] Address [address] [place] [id number] Care Team Providers Care Intermediate Manager Name Role Phone Talia Krishna Primary Care [...] 2023 INFLUENZA VACCINE 01/11/2025 Insurance Care Teams Intermediate Manager Relationship Specialty Start Date End Date Talia Krishna PA PCP - General Physician Superintendent Sales 07/22/15
--- OUTSIDE RECORDS SUMMARY | 2024-11-25 12:12 | XMS_ITS | Clinical Summary ---
Author Organization [facility] Address [address] [place] [address] Care Team Providers Care Loom Setter Name Role Phone Unavailable Primary Care Provider [...] 2017 UKY-Zoster Vaccines (1 of 2) 2017 [id number]-79 Vaccine (1 - 20 24-25 season) 2023 [...]
--- OUTSIDE RECORDS SUMMARY | 2024-11-25 12:12 | XMS_ITS | Referral Summary ---
Author Organization [employer] ([place], [place], [place], [place]) Address [address] [place] [address] Care Team Providers Care Railroad Cook Name Role Phone Unavailable Primary Care Provider Unavailabl e Encounters Date Type Department Care Team Description 11/04/2024 7:48 AM EDT - 11/04/2024 11:59 PM EDT Hospital Encounter [facility] PET CT - [address] [place] [address] Dae Rowe MD Malignant neoplasm of pharynx, [...] Resul t from Last 3 Months Insurance [facility] MEDICAID
--- OUTSIDE RECORDS SUMMARY | 2024-11-25 12:12 | XMS_ITS | Clinical Summary ---
Author Organization [employer] ([place], [place], [place], [place]) Address [address] [place] [address] Care Team Providers Care Professor Of Counseling Name Role Phone Unavailable Primary Care Provider Unavailabl e Encounters Date Type Department Care Team Description 11/04/2024 7:48 AM EDT - 11/04/2024 11:59 PM EDT Hospital Encounter [facility] PET CT - [address] [place] [phone] Dae Rowe MD Malignant neoplasm of pharynx, [...] Resul t from Last 3 Months Insurance [facility] MEDICAID
== END 2024-11-25 12:40 | disposition home or self-care (01) ==
LOC: INF 12:09
PROVIDERS: PCP Family Medicine; Visit Provider Surgery
DX: Z48.00 Encounter for change or removal of nonsurgical wound dressing (principal)
CPT/HCPCS: G0463

== ENCOUNTER 2024-11-26 10:55 | Outpatient (CLI) | payer MEDICAID, SELFPAY ==
--- OUTSIDE RECORDS SUMMARY | 2024-11-04 07:48 | XMS_ITS | Encounter Summary ---
Author Organization [employer] ([place], [place], [place], [place]) Address [address] [place] [address] Care Team Providers Care Traffic Line Painter Name Role Phone Unavailable Primary Care Provider Unavailabl e Reason for Referral * CAT Scan (Routine) - New Request Specialty Diagnoses / Procedures Referred By Esteban de oliveira Referred To Contact Radiology Diagnoses Malignant neoplasm of pharynx, unspecified (HCC) Procedures PET/CT Skull Base-Mid Thigh (Whole Body) Dae Rowe MD [address] [place] [address] Phone: tel: fax: Referral ID Status Reason Start Date Expiration Date V isits Requested Visits Authorized [id number] New Request 11/01/2024 11/01/2025 1 1 Reason for Visit * CAT Scan (Routine) - New Request Specialty Diagnoses / Procedures Referred By Esteban de oliveira Referred To Contact Radiology Diagnoses Malignant neoplasm of pharynx, unspecified (HCC) Procedures PET/CT Skull Base-Mid Thigh (Whole Body) Dae Rowe MD [address] [place] [address] Phone: tel: fax: Referral ID Status Reason Start Date Expiration Date V isits Requested Visits Authorized [id number] New Request 11/01/2024 11/01/2025 1 1 Encounter Details Date Type Department Care Team (Late st Contact Info) Description 11/04/2024 7:48 AM EDT - 11/04/2024 11:59 PM EDT Hospital Encounter [facility] PET CT - [address] [place] [phone] Dae Rowe MD [address] [place] [address] Malignant neoplasm of pharynx, unspecified (HCC) Discharge [...] by Cheko Medina PA-C. Dae Rowe MD [facility]LES Final Resul t documented in this encounter Visit Diagnoses Diagnosis Malignant neoplasm of pharynx, unspecified (HCC) Malignant neoplasm of pharynx, unspecified documented in this encounter
--- OUTSIDE RECORDS SUMMARY | 2024-11-26 10:58 | XMS_ITS | Referral Summary ---
Author Organization [employer] ([place], [place], [place], [place]) Address [address] [place] [address] Care Team Providers Care Track Maintainer Name Role Phone Unavailable Primary Care Provider Unavailabl e Encounters Date Type Department Care Team Description 11/04/2024 7:48 AM EDT - 11/04/2024 11:59 PM EDT Hospital Encounter [facility] PET CT - [address] [place] [address] Dae Rowe MD Malignant neoplasm of pharynx, [...] Resul t from Last 3 Months Insurance [facility] MEDICAID
--- OUTSIDE RECORDS SUMMARY | 2024-11-26 10:58 | XMS_ITS | Clinical Summary ---
Author Organization [facility] Address [address] [place] [address] Care Team Providers Care Director Life Sciences Name Role Phone Unavailable Primary Care Provider [...] 2017 UKY-Zoster Vaccines (1 of 2) 2017 FSB-[id number]-91 Vaccine (1 - 20 24-25 season) 2023 [...]
--- OUTSIDE RECORDS SUMMARY | 2024-11-26 10:58 | XMS_ITS | Clinical Summary ---
Author Organization [email or web address] ([place], [place], [place], [place]) Address [address] [place] [address] Care Team Providers Care Video Surveillance Technician Name Role Phone Unavailable Primary Care Provider Unavailabl e Encounters Date Type Department Care Team Description 11/04/2024 7:48 AM EDT - 11/04/2024 11:59 PM EDT Hospital Encounter [facility] PET CT - [address] [place] [address] Dae Rowe MD Malignant neoplasm of pharynx, [...]
--- OUTSIDE RECORDS SUMMARY | 2024-11-26 10:58 | XMS_ITS | Clinical Summary ---
Author Organization [facility] Address [address] [place] [phone] Care Team Providers Care Photo Mask Processor Name Role Phone Talia Krishna Primary Care [...] 2023 INFLUENZA VACCINE 01/11/2025 Insurance Care Teams Photo Mask Processor Relationship Specialty Start Date End Date Talia Krishna PA PCP - General Physician Digital Imaging Technician 07/22/15
[2024-11-26 11:30] LABS: POC Glucose,Bedside 100 (70-110)
[2024-11-26 11:45] VITALS: BP 110/64; PULSE 64; RESP 16; O2SAT 94
--- NOTE | 2024-11-27 15:44 | PC.NURSE ---
After completing drsg change, pt stated he didn't feel so good . Pt was diaphoretic and pale. He endorsed being light-headed as well. Denied SOA, chest pain, nausea. Vitals taken at 1120, HR-58, BP- 101/53, O2- 96%. Pt laid flat and legs raised at this time. POC glucose- 100. Vitals reassessed at 1131, HR-66, BP-110/70, O2-95%. Pt states he is feeling a little better and was given a soda which he tolerated. Treatment was offered in the ED and pt declined. Pt no longer diaphoretic and pale. Vitals assessed at 1145 prior to discharge WNL. Pt discharged with son with instructions to return to ED if new or worsening symptoms occur. Son present during this episode.
== END 2024-11-26 23:59 | disposition home or self-care (01) ==
LOC: INF 10:56
PROVIDERS: PCP Family Medicine; Visit Provider Surgery
DX: Z48.00 Encounter for change or removal of nonsurgical wound dressing (principal)
CPT/HCPCS: 82962; G0463

== ENCOUNTER 2024-11-27 10:15 | Outpatient (CLI) | payer MEDICAID, SELFPAY ==
--- OUTSIDE RECORDS SUMMARY | 2024-11-04 07:48 | XMS_ITS | Encounter Summary ---
Author Organization [employer] ([place], [place], [place], [place]) Address [address] [place] [address] Care Team Providers Care Lap Machine Operator Name Role Phone Unavailable Primary Care Provider Unavailabl e Reason for Referral * CAT Scan (Routine) - New Request Specialty Diagnoses / Procedures Referred By Esteban de oliveira Referred To Contact Radiology Diagnoses Malignant neoplasm of pharynx, unspecified (HCC) Procedures PET/CT Skull Base-Mid Thigh (Whole Body) Dae Rowe MD [address] [place] [address] Phone: tel: fax: Referral ID Status Reason Start Date Expiration Date V isits Requested Visits Authorized [id number] New Request 11/01/2024 11/01/2025 1 1 Reason for Visit * CAT Scan (Routine) - New Request Specialty Diagnoses / Procedures Referred By Esteban de oliveira Referred To Contact Radiology Diagnoses Malignant neoplasm of pharynx, unspecified (HCC) Procedures PET/CT Skull Base-Mid Thigh (Whole Body) Dae Rowe MD [address] [place] [address] Phone: tel: fax: Referral ID Status Reason Start Date Expiration Date V isits Requested Visits Authorized [id number] New Request 11/01/2024 11/01/2025 1 1 Encounter Details Date Type Department Care Team (Late st Contact Info) Description 11/04/2024 7:48 AM EDT - 11/04/2024 11:59 PM EDT Hospital Encounter [facility] PET CT - [address] [place] [phone] Dae Rowe MD [address] [place] [address] Malignant neoplasm of pharynx, unspecified (HCC) Discharge [...] by Cheko Medina PA-C. Dae Rowe MD [facility] [place] CT ORDERABLES Final Resul t documented in this encounter Visit Diagnoses Diagnosis Malignant neoplasm of pharynx, unspecified (HCC) Malignant neoplasm of pharynx, unspecified documented in this encounter
[2024-11-27 10:15] VITALS: BP 119/72; PULSE 63; RESP 18; TEMP 36.6; O2SAT 98
--- OUTSIDE RECORDS SUMMARY | 2024-11-27 10:18 | XMS_ITS | Clinical Summary ---
Author Organization [facility] Address [address] [place] [address] Care Team Providers Care Inletter Name Role Phone Unavailable Primary Care Provider [...] 2017 UKY-Zoster Vaccines (1 of 2) 2017 PES-PMWVF-30 Vaccine (1 - 20 24-25 season) 2023 [...]
--- OUTSIDE RECORDS SUMMARY | 2024-11-27 10:18 | XMS_ITS | Clinical Summary ---
Author Organization [employer] ([place], [place], [place], [place]) Address [address] [place] [address] Care Team Providers Care Nail Specialist Name Role Phone Unavailable Primary Care Provider Unavailabl e Encounters Date Type Department Care Team Description 11/04/2024 7:48 AM EDT - 11/04/2024 11:59 PM EDT Hospital Encounter [facility] PET CT - [address] [place] [address] Dae Rowe MD Malignant neoplasm of pharynx, [...] Resul t from Last 3 Months Insurance [facility] MEDICAID
--- OUTSIDE RECORDS SUMMARY | 2024-11-27 10:18 | XMS_ITS | Referral Summary ---
Author Organization [employer] ([place], [place], [place], [place]) Address [address] [place] [address] Care Team Providers Care Ornamental Bronze Worker Name Role Phone Unavailable Primary Care Provider Unavailabl e Encounters Date Type Department Care Team Description 11/04/2024 7:48 AM EDT - 11/04/2024 11:59 PM EDT Hospital Encounter [facility] PET CT - [address] [place] [address] Dae Rowe MD Malignant neoplasm of pharynx, [...] Resul t from Last 3 Months Insurance [facility] MEDICAID
--- OUTSIDE RECORDS SUMMARY | 2024-11-27 10:18 | XMS_ITS | Clinical Summary ---
Author Organization [facility] Address [address] [place] [phone] Care Team Providers Care Music Arranger Name Role Phone Talia Krishna Primary Care [...] 2023 INFLUENZA VACCINE 01/11/2025 Insurance Care Teams Music Arranger Relationship Specialty Start Date End Date Talia Krishna PA PCP - General Physician Mastic Man 07/22/15
== END 2024-11-27 10:47 | disposition home or self-care (01) ==
LOC: INF 10:16
PROVIDERS: PCP Family Medicine; Visit Provider Surgery
DX: Z48.00 Encounter for change or removal of nonsurgical wound dressing (principal)
CPT/HCPCS: G0463

== ENCOUNTER 2024-11-28 09:26 | Outpatient (CLI) | payer MEDICAID, SELFPAY ==
--- OUTSIDE RECORDS SUMMARY | 2024-11-04 07:48 | XMS_ITS | Encounter Summary ---
Author Organization [employer] ([place], [place], [place], [place]) Address [address] [place] [address] Care Team Providers Care Assistant Director Of Plant Operations Name Role Phone Unavailable Primary Care Provider Unavailabl e Reason for Referral * CAT Scan (Routine) - New Request Specialty Diagnoses / Procedures Referred By Esteban de oliveira Referred To Contact Radiology Diagnoses Malignant neoplasm of pharynx, unspecified (HCC) Procedures PET/CT Skull Base-Mid Thigh (Whole Body) Dae Rowe MD [address] [place] [address] Phone: tel: fax: Referral ID Status Reason Start Date Expiration Date V isits Requested Visits Authorized [id number] New Request 11/01/2024 11/01/2025 1 1 Reason for Visit * CAT Scan (Routine) - New Request Specialty Diagnoses / Procedures Referred By Esteban de oliveira Referred To Contact Radiology Diagnoses Malignant neoplasm of pharynx, unspecified (HCC) Procedures PET/CT Skull Base-Mid Thigh (Whole Body) Dae Rowe MD [address] [place] [address] Phone: tel: fax: Referral ID Status Reason Start Date Expiration Date V isits Requested Visits Authorized [id number] New Request 11/01/2024 11/01/2025 1 1 Encounter Details Date Type Department Care Team (Late st Contact Info) Description 11/04/2024 7:48 AM EDT - 11/04/2024 11:59 PM EDT Hospital Encounter [facility] PET CT - [address] [place] [phone] Dae Rowe MD [address] [place] [address] Malignant neoplasm of pharynx, unspecified (HCC) Discharge Disposition: Home or Self Care Social History Tobacco Use Types Packs/Day Years Used Date Smoking Tobacco: Never Assessed Sex and Gender Information Value Date Recorded Sex Assigned at Not on file Legal Sex Male 5:20 PM CDT Gender Identity Not on file Sexual Orientation Not on file documented as of this encounter Plan of Treatment Not on file documented as of this encounter Procedures Procedure Name Priority Date/Time Associated Diagnosis Comments P.E.T./CT SKULL BASE TO MID-THIGH Routine 11/04/2024 10:19 AM EDT Malignant neoplasm of pharynx, unspecified (HCC) documented in this encounter Results * PET/CT Skull Base-Mid Thigh (Whole Body) (11/04/2024 10:19 AM EDT) Anatomical Region Laterality Modality Positron Emissio n Tomography (PET) 11/04/2024 3:32 PM EDT Impressions 11/04/2024 4:56 PM EDT 1. Hypermetabolic mass of the right tonsillar pillar and right lung base with metastatic upper cervical adenopathy. 2. Bilateral hypermetabolic parotid nodules. These could be metastatic or represent salivary gland neoplasm. Images reviewed, interpreted, and dictated by Dr. Linn Love. Transcribed by Cheko Medina PA-C. Narrative 11/04/2024 4:56 PM EDT PROCEDURE: PET/CT IMAGING, SKULL BASE TO MID THIGH INDICATION: Right tongue base mass, initial staging. TECHNIQUE: 16.8 mCi of 18-FDG was injected intravenously with a fasting blood glucose of 105 mg/dl. PET/CT images were obtained from skull base to mid thigh. COMPARISON: No prior FINDINGS: There is a hypermetabolic mass in the right tonsillar pillar and right tongue base with a maximum SUV of 17.7. There are bilateral hypermetabolic parotid nodules with maximum SUV on the left of 3.9 and on the right of 3.5. There is a conglomerate of hypermetabolic lymph nodes in the right upper cervical region at the level of the angle of the mandible. This demonstrates a maximum SUV of 7.4. There are no foci of hypermetabolism in the lungs or mediastinum. There is no hypermetabolic thoracic lymphadenopathy. The liver, spleen, renal collecting systems, and bladder demonstrate expected FDG uptake. There is no suprarenal hypermetabolism to suggest adrenal metastasis. GI uptake is normal. There is no hypermetabolic abdominal or pelvic lymphadenopathy. No hypermetabolic bone lesions are identified. 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 Procedure Note Linn Love MD - 11/04/2024 PROCEDURE: PET/CT IMAGING, SKULL BASE TO MID THIGH INDICATION: Right tongue base mass, initial staging. TECHNIQUE: 16.8 mCi of 18-FDG was injected intravenously with a fasting blood glucose of 105 mg/dl. PET/CT images were obtained from skull base to mid thigh. COMPARISON: No prior FINDINGS: There is a hypermetabolic mass in the right tonsillar pillar and right tongue base with a maximum SUV of 17.7. There are bilateral hypermetabolic parotid nodules with maximum SUV on the left of 3.9 and on the right of 3.5. There is a conglomerate of hypermetabolic lymph nodes in the right upper cervical region at the level of the angle of the mandible. This demonstrates a maximum SUV of 7.4. There are no foci of hypermetabolism in the lungs or mediastinum. There is no hypermetabolic thoracic lymphadenopathy. The liver, spleen, renal collecting systems, and bladder demonstrate expected FDG uptake. There is no suprarenal hypermetabolism to suggest adrenal metastasis. GI uptake is normal. There is no hypermetabolic abdominal or pelvic lymphadenopathy. No hypermetabolic bone lesions are identified. 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 IMPRESSION: 1. Hypermetabolic mass of the right tonsillar pillar and right lung base with metastatic upper cervical adenopathy. 2. Bilateral hypermetabolic parotid nodules. These could be metastatic or represent salivary gland neoplasm. Images reviewed, interpreted, and dictated by Dr. Linn Love. Transcribed by Cheko Medina PA-C. Dae Rowe MD [facility] [place] ORDERABLES Final Resul t documented in this encounter Visit Diagnoses Diagnosis Malignant neoplasm of pharynx, unspecified (HCC) Malignant neoplasm of pharynx, unspecified documented in this encounter
--- OUTSIDE RECORDS SUMMARY | 2024-11-28 09:29 | XMS_ITS | Referral Summary ---
Author Organization [employer] ([place], [place], [place], [place]) Address [address] [place] [address] Care Team Providers Care Dairy Supplies Sales Representative Name Role Phone Unavailable Primary Care Provider Unavailabl e Encounters Date Type Department Care Team Description 11/04/2024 7:48 AM EDT - 11/04/2024 11:59 PM EDT Hospital Encounter [facility] PET CT - [address] [place] [address] Dae Rowe MD Malignant neoplasm of pharynx, [...] Resul t from Last 3 Months Insurance [facility] MEDICAID
--- OUTSIDE RECORDS SUMMARY | 2024-11-28 09:29 | XMS_ITS | Clinical Summary ---
Author Organization [facility] Address [address] [place] [address] Care Team Providers Care Printed Circuit Boards Laminator Name Role Phone Unavailable Primary Care Provider [...] 2017 UKY-Zoster Vaccines (1 of 2) 2017 [id number]-XFLCL-50 Vaccine (1 - 20 24-25 season) 2023 [...]
--- OUTSIDE RECORDS SUMMARY | 2024-11-28 09:29 | XMS_ITS | Clinical Summary ---
Author Organization [employer] ([place], [place], [place], [place]) Address [address] [place] [address] Care Team Providers Care Fountain Brush Assembler Name Role Phone Unavailable Primary Care Provider Unavailabl e Encounters Date Type Department Care Team Description 11/04/2024 7:48 AM EDT - 11/04/2024 11:59 PM EDT Hospital Encounter [facility] PET CT - [address] [place] [address] Dae Rowe MD Malignant neoplasm of pharynx, [...] Images reviewed, interpreted, and dictated by Dr. Lnin Love. Transcribed by Cheko Medina PA-C. Narrative [...] from Last 3 Months Insurance [facility] MEDICAID
--- OUTSIDE RECORDS SUMMARY | 2024-11-28 09:29 | XMS_ITS | Clinical Summary ---
Author Organization [facility] Address [address] [place] [phone] Care Team Providers Care Outreach Assistant Name Role Phone Talia Krishna Primary Care [...] 2023 INFLUENZA VACCINE 01/11/2025 Insurance Care Teams Outreach Assistant Relationship Specialty Start Date End Date Talia Krishna PA PCP - General Physician Hand Washer 07/22/15
== END 2024-11-28 09:35 | disposition home or self-care (01) ==
LOC: INF 09:27
PROVIDERS: PCP Family Medicine; Visit Provider Surgery
DX: Z48.00 Encounter for change or removal of nonsurgical wound dressing (principal)
CPT/HCPCS: G0463

== ENCOUNTER 2024-11-29 13:32 | Outpatient (RCR) | payer MEDICAID, SELFPAY | END 2024-11-29 13:50 | LOC: INF 13:32 | PROVIDERS: PCP Family Medicine; Visit Provider Surgery | DX: L02.11 Cutaneous abscess of neck (principal) | CPT/HCPCS: G0463 ==

== ENCOUNTER 2024-12-01 10:16 | Outpatient (CLI) | payer MEDICAID, SELFPAY ==
--- OUTSIDE RECORDS SUMMARY | 2024-11-04 07:48 | XMS_ITS | Encounter Summary ---
Author Organization [employer] ([place], [place], [place], [place]) Address [address] [place] [address] Care Team Providers Care Heel Stainer Name Role Phone Unavailable Primary Care Provider Unavailabl e Reason for Referral * CAT Scan (Routine) - New Request Specialty Diagnoses / Procedures Referred By Esteban de oliveira Referred To Contact Radiology Diagnoses Malignant neoplasm of pharynx, unspecified (HCC) Procedures PET/CT Skull Base-Mid Thigh (Whole Body) Dae Rowe MD [address] [place] [address] Phone: tel: fax: Referral ID Status Reason Start Date Expiration Date V isits Requested Visits Authorized [id number] New Request 11/01/2024 11/01/2025 1 1 Reason for Visit * CAT Scan (Routine) - New Request Specialty Diagnoses / Procedures Referred By Esteban de oliveira Referred To Contact Radiology Diagnoses Malignant neoplasm of pharynx, unspecified (HCC) Procedures PET/CT Skull Base-Mid Thigh (Whole Body) Dae Rowe MD [address] [place] [address] Phone: tel: fax: Referral ID Status Reason Start Date Expiration Date V isits Requested Visits Authorized [id number] New Request 11/01/2024 11/01/2025 1 1 Encounter Details Date Type Department Care Team (Late st Contact Info) Description 11/04/2024 7:48 AM EDT - 11/04/2024 11:59 PM EDT Hospital Encounter [facility] PET CT - [address] [place] [phone] Dae Rowe MD [address] [place] [address] Malignant neoplasm of pharynx, unspecified (HCC) Discharge [...] by Cheko Medina PA-C. Dae Rowe MD [facility] [place] CT ORDERABLES Final Resul t documented in this encounter Visit Diagnoses Diagnosis Malignant neoplasm of pharynx, unspecified (HCC) Malignant neoplasm of pharynx, unspecified documented in this encounter
--- OUTSIDE RECORDS SUMMARY | 2024-12-01 10:21 | XMS_ITS | Clinical Summary ---
Author Organization [facility] Address [address] [place] [address] Care Team Providers Care Reinforcing Metal Worker Name Role Phone Unavailable Primary Care [...] 2017 UKY-Zoster Vaccines (1 of 2) 2017 HPU-[id number]-66 Vaccine (1 - 20 24-25 season) 2023 [...]
--- OUTSIDE RECORDS SUMMARY | 2024-12-01 10:21 | XMS_ITS | Clinical Summary ---
Author Organization [employer] ([place], [place], [place], [place]) Address [address] [place] [address] Care Team Providers Care Account Review Specialist Name Role Phone Unavailable Primary Care Provider Unavailabl e Encounters Date Type Department Care Team Description 11/04/2024 7:48 AM EDT - 11/04/2024 11:59 PM EDT Hospital Encounter [facility] PET CT - [address] [place] [address] Dae Rowe MD Malignant neoplasm of pharynx, [...] Images reviewed, interpreted, and dictated by Dr. iLnn Love. Transcribed by Cheko Medina PA-C. Narrative [...] Resul t from Last 3 Months Insurance [facility] MEDICAID
--- OUTSIDE RECORDS SUMMARY | 2024-12-01 10:21 | XMS_ITS | Clinical Summary ---
Author Organization [facility] Address [address] [place] [id number] Care Team Providers Care Steward/Stewardess Lounge Name Role Phone Talia Krishna Primary Care [...] 2023 INFLUENZA VACCINE 01/11/2025 Insurance Care Teams Steward/Stewardess Lounge Relationship Specialty Start Date End Date Talia Krishna PA PCP - General Physician Cager Operator 07/22/15
--- OUTSIDE RECORDS SUMMARY | 2024-12-01 10:21 | XMS_ITS | Referral Summary ---
Author Organization [employer] ([place], [place], [place], [place]) Address [address] [place] [address] Care Team Providers Care Cut Off Machine Operator Name Role Phone Unavailable Primary Care Provider Unavailabl e Encounters Date Type Department Care Team Description 11/04/2024 7:48 AM EDT - 11/04/2024 11:59 PM EDT Hospital Encounter [facility] PET CT - [address] [place] [address] Dae Rowe MD Malignant neoplasm of pharynx, [...] Resul t from Last 3 Months Insurance [facility] [place] [address]
== END 2024-12-01 10:20 | disposition home or self-care (01) ==
LOC: INF 10:18
PROVIDERS: PCP Family Medicine; Visit Provider Surgery
DX: Z48.02 Encounter for removal of sutures (principal)
CPT/HCPCS: 99211; G0463

== ENCOUNTER 2024-12-02 09:32 | Outpatient (CLI) | payer MEDICAID, SELFPAY ==
--- OUTSIDE RECORDS SUMMARY | 2024-11-04 07:48 | XMS_ITS | Encounter Summary ---
Author Organization [employer] ([place], [place], [place], [place]) Address [address] [place] [address] Care Team Providers Care Dry Wall Nailer Name Role Phone Unavailable Primary Care Provider Unavailabl e Reason for Referral * CAT Scan (Routine) - New Request Specialty Diagnoses / Procedures Referred By Esteban de oliveira Referred To Contact Radiology Diagnoses Malignant neoplasm of pharynx, unspecified (HCC) Procedures PET/CT Skull Base-Mid Thigh (Whole Body) Dae Rowe MD [address] [place] [address] Phone: tel: fax: Referral ID Status Reason Start Date Expiration Date V isits Requested Visits Authorized [id number] New Request 11/01/2024 11/01/2025 1 1 Reason for Visit * CAT Scan (Routine) - New Request Specialty Diagnoses / Procedures Referred By Esteban de oliveira Referred To Contact Radiology Diagnoses Malignant neoplasm of pharynx, unspecified (HCC) Procedures PET/CT Skull Base-Mid Thigh (Whole Body) Dae Rowe MD [address] [place] [address] Phone: tel: fax: Referral ID Status Reason Start Date Expiration Date V isits Requested Visits Authorized [id number] New Request 11/01/2024 11/01/2025 1 1 Encounter Details Date Type Department Care Team (Late st Contact Info) Description 11/04/2024 7:48 AM EDT - 11/04/2024 11:59 PM EDT Hospital Encounter [facility] PET CT - [address] [place] [phone] Dae Rowe MD [address] [place] [address] Malignant neoplasm of pharynx, unspecified (HCC) Discharge [...]
--- OUTSIDE RECORDS SUMMARY | 2024-12-02 09:36 | XMS_ITS | Referral Summary ---
Author Organization [employer] ([place], [place], [place], [place]) Address [address] [place] [address] Care Team Providers Care Etched Circuit Processor Name Role Phone Unavailable Primary Care Provider Unavailabl e Encounters Date Type Department Care Team Description 11/04/2024 7:48 AM EDT - 11/04/2024 11:59 PM EDT Hospital Encounter [facility] PET CT - Robert [address] [place] [address] Dae Rowe MD Malignant neoplasm of pharynx, [...] Resul t from Last 3 Months Insurance [facility] MEDICAID
--- OUTSIDE RECORDS SUMMARY | 2024-12-02 09:36 | XMS_ITS | Clinical Summary ---
Author Organization [employer] ([place], [place], [place], [place]) Address [address] [place] [address] Care Team Providers Care Glass Pulverizer Equipment Operator Name Role Phone Unavailable Primary Care Provider Unavailabl e Encounters Date Type Department Care Team Description 11/04/2024 7:48 AM EDT - 11/04/2024 11:59 PM EDT Hospital Encounter [facility] PET CT - Robert [address] [place] [address] Dae Rowe MD Malignant neoplasm of pharynx, [...] Resul t from Last 3 Months Insurance [facility] MEDICAID
--- OUTSIDE RECORDS SUMMARY | 2024-12-02 09:36 | XMS_ITS | Clinical Summary ---
Author Organization [facility] Address [address] [place] [address] Care Team Providers Care Lean Specialist Name Role Phone Unavailable Primary Care [...] 2017 UKY-Zoster Vaccines (1 of 2) 2017 [id number]-89 Vaccine (1 - 20 24-25 season) 2023 [...]
--- OUTSIDE RECORDS SUMMARY | 2024-12-02 09:36 | XMS_ITS | Clinical Summary ---
Author Organization [facility] Address [address] [place] [id number] Care Team Providers Care Solid Tire Finisher Name Role Phone Talia Krishna Primary Care [...] 2023 INFLUENZA VACCINE 01/11/2025 Insurance Care Teams Solid Tire Finisher Relationship Specialty Start Date End Date Talia Krishna PA PCP - General Physician Automotive Painter Helper 07/22/15
== END 2024-12-02 10:00 | disposition home or self-care (01) ==
LOC: INF 09:34
PROVIDERS: PCP Family Medicine; Visit Provider Surgery
DX: Z48.02 Encounter for removal of sutures (principal)
CPT/HCPCS: 99211; G0463

== ENCOUNTER 2024-12-03 09:58 | Outpatient (RCR) | payer MEDICAID, SELFPAY ==
--- NOTE | 2024-12-03 11:18 | PC.NURSE ---
DRESSING CHANGE COMPLETED BY IAN WADE RN
== END 2024-12-03 10:25 ==
LOC: INF 09:58
PROVIDERS: PCP Family Medicine; Visit Provider Surgery
DX: Z48.00 Encounter for change or removal of nonsurgical wound dressing (principal)
CPT/HCPCS: 99211; G0463

== ENCOUNTER 2024-12-04 10:30 | Outpatient (RCR) | payer MEDICAID, SELFPAY | END 2024-12-04 10:50 | LOC: INF 10:30 | PROVIDERS: PCP Family Medicine; Visit Provider Surgery | DX: Z48.00 Encounter for change or removal of nonsurgical wound dressing (principal) | CPT/HCPCS: 99211; G0463 ==

== ENCOUNTER 2024-12-05 09:32 | Outpatient (CLI) | payer MEDICAID, SELFPAY ==
--- OUTSIDE RECORDS SUMMARY | 2024-11-04 07:48 | XMS_ITS | Encounter Summary ---
Author Organization [employer] ([place], [place], [place], [place]) Address [address] [place] [address] Care Team Providers Care Grinding Room Supervisor Name Role Phone Unavailable Primary Care Provider Unavailabl e Reason for Referral * CAT Scan (Routine) - New Request Specialty Diagnoses / Procedures Referred By Esteban de oliveira Referred To Contact Radiology Diagnoses Malignant neoplasm of pharynx, unspecified (HCC) Procedures PET/CT Skull Base-Mid Thigh (Whole Body) Dae Rowe MD [address] [place] [address] Phone: tel: fax: Referral ID Status Reason Start Date Expiration Date V isits Requested Visits Authorized [id number] New Request 11/01/2024 11/01/2025 1 1 Reason for Visit * CAT Scan (Routine) - New Request Specialty Diagnoses / Procedures Referred By Esteabn de oliveira Referred To Contact Radiology Diagnoses Malignant neoplasm of pharynx, unspecified (HCC) Procedures PET/CT Skull Base-Mid Thigh (Whole Body) Dae Rowe MD [address] [place] [address] Phone: tel: fax: Referral ID Status Reason Start Date Expiration Date V isits Requested Visits Authorized [id number] New Request 11/01/2024 11/01/2025 1 1 Encounter Details Date Type Department Care Team (Late st Contact Info) Description 11/04/2024 7:48 AM EDT - 11/04/2024 11:59 PM EDT Hospital Encounter [facility] PET CT - [address] [place] [phone] Dae Rowe MD [address] [place] [address] Malignant neoplasm of pharynx, unspecified (HCC) Discharge [...] Linn Love. Transcribed by Cheko Medina PA-C. Dea Rowe MD [facility] [place] CT ORDERABLES Final Resul t documented in this encounter Visit Diagnoses Diagnosis Malignant neoplasm of pharynx, unspecified (HCC) Malignant neoplasm of pharynx, unspecified documented in this encounter
--- OUTSIDE RECORDS SUMMARY | 2024-12-05 10:11 | XMS_ITS | Clinical Summary ---
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
--- OUTSIDE RECORDS SUMMARY | 2024-12-05 10:11 | XMS_ITS | Clinical Summary ---
Author Organization [facility] Address [address] [place] [phone] Care Team Providers Care Power Washer Name Role Phone Talia Krishna Primary Care [...] 2023 INFLUENZA VACCINE 01/11/2025 Insurance Care Teams Power Washer Relationship Specialty Start Date End Date Talia Krishna PA PCP - General Physician Polystyrene Molding Machine Tender 07/22/15
--- OUTSIDE RECORDS SUMMARY | 2024-12-05 10:11 | XMS_ITS | Referral Summary ---
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
--- OUTSIDE RECORDS SUMMARY | 2024-12-05 10:11 | XMS_ITS | Clinical Summary ---
Author Organization [facility] Address [address] [place] [address] Care Team Providers Care Ash Pit Worker Name Role Phone Unavailable Primary Care [...] 2017 UKY-Zoster Vaccines (1 of 2) 2017 [id number]-45 Vaccine (1 - 20 24-25 season) 2023 [...]
== END 2024-12-05 10:10 | disposition home or self-care (01) ==
LOC: INF 09:33
PROVIDERS: PCP Family Medicine; Visit Provider Surgery
DX: Z48.00 Encounter for change or removal of nonsurgical wound dressing (principal)
CPT/HCPCS: 99211; G0463

== ENCOUNTER 2024-12-06 10:40 | Outpatient (RCR) | payer MEDICAID, SELFPAY | END 2024-12-06 10:47 | LOC: INF 10:40 | PROVIDERS: PCP Family Medicine; Visit Provider Surgery | DX: Z48.00 Encounter for change or removal of nonsurgical wound dressing (principal) | CPT/HCPCS: 99211; G0463 ==

== ENCOUNTER 2024-12-07 09:56 | Outpatient (CLI) | payer MEDICAID, SELFPAY ==
--- OUTSIDE RECORDS SUMMARY | 2024-11-04 07:48 | XMS_ITS | Encounter Summary ---
Author Organization [employer] ([place], [place], [place], [place]) Address [address] [place] [address] Care Team Providers Care Division Leader Name Role Phone Unavailable Primary Care Provider Unavailabl e Reason for Referral * CAT Scan (Routine) - New Request Specialty Diagnoses / Procedures Referred By Esteban de oliveira Referred To Contact Radiology Diagnoses Malignant neoplasm of pharynx, unspecified (HCC) Procedures PET/CT Skull Base-Mid Thigh (Whole Body) Dae Rowe MD [address] [place] [address] Phone: tel: fax: Referral ID Status Reason Start Date Expiration Date V isits Requested Visits Authorized [id number] New Request 11/01/2024 11/01/2025 1 1 Reason for Visit * CAT Scan (Routine) - New Request Specialty Diagnoses / Procedures Referred By Esteban de oliveira Referred To Contact Radiology Diagnoses Malignant neoplasm of pharynx, unspecified (HCC) Procedures PET/CT Skull Base-Mid Thigh (Whole Body) Dae Rowe MD [address] [place] [address] Phone: tel: fax: Referral ID Status Reason Start Date Expiration Date V isits Requested Visits Authorized [id number] New Request 11/01/2024 11/01/2025 1 1 Encounter Details Date Type Department Care Team (Late st Contact Info) Description 11/04/2024 7:48 AM EDT - 11/04/2024 11:59 PM EDT Hospital Encounter [facility] PET CT - [address] [place] [phone] Dae Rowe MD [address] [place] [address] Malignant neoplasm of pharynx, unspecified (HCC) Discharge [...] Cheko Medina PA-C. Dae Rowe MD [facility] [place] CT ORDERABLES Final Resul t documented in this encounter Visit Diagnoses Diagnosis Malignant neoplasm of pharynx, unspecified (HCC) Malignant neoplasm of pharynx, unspecified documented in this encounter
--- OUTSIDE RECORDS SUMMARY | 2024-12-07 09:58 | XMS_ITS | Referral Summary ---
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
--- OUTSIDE RECORDS SUMMARY | 2024-12-07 09:58 | XMS_ITS | Clinical Summary ---
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
--- OUTSIDE RECORDS SUMMARY | 2024-12-07 09:59 | XMS_ITS | Clinical Summary ---
Author Organization [facility] Address [address] [place] [phone] Care Team Providers Care Iron Miner Blasting Name Role Phone Talia Krishna Primary Care [...] 2023 INFLUENZA VACCINE 01/11/2025 Insurance Care Teams Iron Miner Blasting Relationship Specialty Start Date End Date Talia Krishna PA PCP - General Physician Funeral Car Chauffeur 07/22/15
--- OUTSIDE RECORDS SUMMARY | 2024-12-07 09:59 | XMS_ITS | Clinical Summary ---
Author Organization [facility] Address [address] [place] [address] Care Team Providers Care Appellate Law Clerk Name Role Phone Unavailable Primary Care Provider [...] 2017 UKY-Zoster Vaccines (1 of 2) 2017 [id number]-95 Vaccine (1 - 20 24-25 season) 2023 [...]
== END 2024-12-07 10:10 | disposition home or self-care (01) ==
LOC: INF 09:57
PROVIDERS: PCP Family Medicine; Visit Provider Surgery
DX: Z48.02 Encounter for removal of sutures (principal)
CPT/HCPCS: 99211; G0463

== ENCOUNTER 2024-12-08 08:46 | Outpatient (CLI) | payer MEDICAID, SELFPAY ==
--- OUTSIDE RECORDS SUMMARY | 2024-11-04 07:48 | XMS_ITS | Encounter Summary ---
Author Organization [employer] ([place], [place], [place], [place]) Address [address] [place] [address] Care Team Providers Care Client Evaluator Name Role Phone Unavailable Primary Care Provider Unavailabl e Reason for Referral * CAT Scan (Routine) - New Request Specialty Diagnoses / Procedures Referred By Esteban de oliveira Referred To Contact Radiology Diagnoses Malignant neoplasm of pharynx, unspecified (HCC) Procedures PET/CT Skull Base-Mid Thigh (Whole Body) Dae Rowe MD [address] [place] [address] Phone: tel: fax: Referral ID Status Reason Start Date Expiration Date V isits Requested Visits Authorized [id number] New Request 11/01/2024 11/01/2025 1 1 Reason for Visit * CAT Scan (Routine) - New Request Specialty Diagnoses / Procedures Referred By Esteban de oliveira Referred To Contact Radiology Diagnoses Malignant neoplasm of pharynx, unspecified (HCC) Procedures PET/CT Skull Base-Mid Thigh (Whole Body) Dae Rowe MD [address] [place] [address] Phone: tel: fax: Referral ID Status Reason Start Date Expiration Date V isits Requested Visits Authorized [id number] New Request 11/01/2024 11/01/2025 1 1 Encounter Details Date Type Department Care Team (Late st Contact Info) Description 11/04/2024 7:48 AM EDT - 11/04/2024 11:59 PM EDT Hospital Encounter [facility] PET CT - [address] [place] [phone] Dae Rowe MD [address] [place] [address] Malignant neoplasm of pharynx, unspecified (HCC) Discharge [...] by Cheko Medina PA-C. Dae Rowe MD [facility] [place] CT ORDERABLES Final Resul t documented in this encounter Visit Diagnoses Diagnosis Malignant neoplasm of pharynx, unspecified (HCC) Malignant neoplasm of pharynx, unspecified documented in this encounter
--- OUTSIDE RECORDS SUMMARY | 2024-12-08 08:50 | XMS_ITS | Clinical Summary ---
Author Organization [facility] Address [address] [place] [address] Care Team Providers Care Import Export Clerk Name Role Phone Unavailable Primary Care [...] 2017 UKY-Zoster Vaccines (1 of 2) 2017 AOW-[id number]-40 Vaccine (1 - 20 24-25 season) 2023 [...]
--- OUTSIDE RECORDS SUMMARY | 2024-12-08 08:50 | XMS_ITS | Clinical Summary ---
Author Organization [employer] ([place], [place], [place], [place]) Address [address] [place] [address] Care Team Providers Care Clinical Interviewer Name Role Phone Unavailable Primary Care Provider Unavailabl e Encounters Date Type Department Care Team Description 11/04/2024 7:48 AM EDT - 11/04/2024 11:59 PM EDT Hospital Encounter [facility] PET CT - Robert O [address] [place] [address] Dae Rowe MD Malignant neoplasm of pharynx, [...] Resul t from Last 3 Months Insurance [facility] MEDICAID
--- OUTSIDE RECORDS SUMMARY | 2024-12-08 08:50 | XMS_ITS | Clinical Summary ---
Author Organization [facility] Address [address] [place] [phone] Care Team Providers Care Software Design Manager Name Role Phone Talia Krishna Primary Care Provider [phone] Allergies Active Allergy Reactions Criticality Noted Date [...] 2023 INFLUENZA VACCINE 01/11/2025 Insurance Care Teams Software Design Manager Relationship Specialty Start Date End Date Talia Krishna PA PCP - General Physician Person Investigator 07/22/15
--- OUTSIDE RECORDS SUMMARY | 2024-12-08 08:50 | XMS_ITS | Referral Summary ---
Author Organization [employer] ([place], [place], [place], [place]) Address [address] [place] [address] Care Team Providers Care Humidifier Maintenance Worker Name Role Phone Unavailable Primary Care Provider Unavailabl e Encounters Date Type Department Care Team Description 11/04/2024 7:48 AM EDT - 11/04/2024 11:59 PM EDT Hospital Encounter [facility] PET CT - Robert O [address] [place] [address] Dae Rowe MD Malignant neoplasm of pharynx, [...] t from Last 3 Months Insurance [facility] MEDICAID
== END 2024-12-08 08:55 | disposition home or self-care (01) ==
LOC: INF 08:46
PROVIDERS: PCP Family Medicine; Visit Provider Surgery
DX: Z48.02 Encounter for removal of sutures (principal)
CPT/HCPCS: 99211; G0463

== ENCOUNTER 2024-12-09 10:52 | Outpatient (RCR) | payer MEDICAID, SELFPAY | END 2024-12-09 11:10 | LOC: INF 10:52 | PROVIDERS: PCP Family Medicine; Visit Provider Surgery | DX: Z48.00 Encounter for change or removal of nonsurgical wound dressing (principal) | CPT/HCPCS: 99211; G0463 ==

== ENCOUNTER 2024-12-13 09:31 | Outpatient (CLI) | payer MEDICAID, SELFPAY ==
--- OUTSIDE RECORDS SUMMARY | 2024-11-04 07:48 | XMS_ITS | Encounter Summary ---
Author Organization [employer] ([place], [place], [place], [place]) Address [address] [place] [address] Care Team Providers Care Stock Control Supervisor Name Role Phone Unavailable Primary Care Provider Unavailabl e Reason for Referral * CAT Scan (Routine) - New Request Specialty Diagnoses / Procedures Referred By Esteban de oliveira Referred To Contact Radiology Diagnoses Malignant neoplasm of pharynx, unspecified (HCC) Procedures PET/CT Skull Base-Mid Thigh (Whole Body) Dae Rowe MD [address] [place] [address] Phone: tel: fax: Referral ID Status Reason Start Date Expiration Date V isits Requested Visits Authorized [id number] New Request 11/01/2024 11/01/2025 1 1 Reason for Visit * CAT Scan (Routine) - New Request Specialty Diagnoses / Procedures Referred By Esteban de oliveira Referred To Contact Radiology Diagnoses Malignant neoplasm of pharynx, unspecified (HCC) Procedures PET/CT Skull Base-Mid Thigh (Whole Body) Dae Rowe MD [address] [place] [address] Phone: tel: fax: Referral ID Status Reason Start Date Expiration Date V isits Requested Visits Authorized [id number] New Request 11/01/2024 11/01/2025 1 1 Encounter Details Date Type Department Care Team (Late st Contact Info) Description 11/04/2024 7:48 AM EDT - 11/04/2024 11:59 PM EDT Hospital Encounter [facility] PET CT - [address] [place] [phone] Dae Rowe MD [address] [place] [address] Malignant neoplasm of pharynx, unspecified (HCC) Discharge [...] by Cheko Medina PA-C. Dae Rowe MD [facility] [place] CT ORDERABLES Final Resul t documented in this encounter Visit Diagnoses Diagnosis Malignant neoplasm of pharynx, unspecified (HCC) Malignant neoplasm of pharynx, unspecified documented in this encounter
[2024-12-13 09:33] VITALS: BMI 27.5
[2024-12-13 09:47] LABS: Hematocrit 39.1 % (42.0-52.0); Hemoglobin 13.4 g/dL (14.1-18.0); Immature Granulocytes % 0.3 %; Mean Corpuscular HGB Conc 34.3 g/dL (31.8-35.4); Mean Corpuscular Hemoglobin 33.0 pg (27.0-31.2); Mean Corpuscular Volume 96.3 fl (80-94); Nucleated Red Blood Cells % 0 %; Platelet Count 210 K/mm3 (142-424); Red Blood Count 4.06 M/mm3 (4.60-6.20); Red Cell Distribution Width-SD 43.3 fL; White Blood Count 6.2 K/mm3 (4.8-10.8)
--- OUTSIDE RECORDS SUMMARY | 2024-12-13 09:59 | XMS_ITS | Clinical Summary ---
Author Organization [facility] Address [address] [place] [address] Care Team Providers Care Platen Grinder Name Role Phone Unavailable Primary Care Provider [...] 2017 UKY-Zoster Vaccines (1 of 2) 2017 [id number]-89 Vaccine (1 - 20 24-25 season) 2023 [...]
--- OUTSIDE RECORDS SUMMARY | 2024-12-13 09:59 | XMS_ITS | Referral Summary ---
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
--- OUTSIDE RECORDS SUMMARY | 2024-12-13 09:59 | XMS_ITS | Clinical Summary ---
Author Organization [facility] Address [address] [place] [phone] Care Team Providers Care Cement Gun Operator Name Role Phone Talia Krishna Primary Care [...] 2023 INFLUENZA VACCINE 01/11/2025 Insurance Care Teams Cement Gun Operator Relationship Specialty Start Date End Date Talia Krishna PA PCP - General Physician Screening Representative 07/22/15
--- OUTSIDE RECORDS SUMMARY | 2024-12-13 09:59 | XMS_ITS | Clinical Summary ---
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 MEDICAID
[2024-12-13 10:04] LABS: Alanine Aminotransferase 24 U/L (12-78); Albumin Level 4.5 g/dl (3.5-5.0); Albumin/Globulin Ratio 1.7 (1.1-1.8); Alkaline Phosphatase 83 U/L (38-126); Anion Gap 13.2 mEq/L (5-15); Aspartate Amino Transferase 28 U/L (17-59); Bilirubin,Total 1.4 mg/dl (0.2-1.3); Blood Urea Nitrogen 13 mg/dl (9-20); Calcium 9.6 mg/dl (8.4-10.2); Carbon Dioxide 30 mmol/L (22.0-30.0); Chloride 98 mmol/L (98-107); Creatinine Clearance Estimated 82 mL/min (50-200); Creatinine,Serum 1.40 mg/dl (0.66-1.25); Estimated Glomerular Filt Rate 52 ml/min (>60); GFR (African American) 63 ML/MIN (>60); Globulin 2.7 g/dL (1.3-3.2); Glucose 136 mg/dl (74-100); Potassium 4.2 mmoL/L (3.5-5.1); Sodium 137 mmol/L (136-145); Total Protein,Serum 7.2 g/dl (6.3-8.2)
[2024-12-13] MEDS: DEXAMETHASONE 4MG TABLET 12 MG (10:41)
[2024-12-13] MEDS: GRANISETRON 1 MG 2 MG PO (10:41)
[2024-12-13] MEDS: APREPITANT 125MG/80MG TRIFOLD PACK 1 PACKET PO (10:41)
[2024-12-13] MEDS: CARBOplatin 150 MG in 0.9 % SODIUM CHLORIDE 100 ML 230 MG IV (10:58)
[2024-12-13 11:08] VITALS: BP 117/64; PULSE 73; RESP 18; TEMP 36.6; O2SAT 97
[2024-12-13 11:40] VITALS: BP 109/65; PULSE 71
== END 2024-12-13 12:23 | disposition home or self-care (01) ==
LOC: INF 09:33
PROVIDERS: PCP Family Medicine; Visit Provider Internal Medicine Medical Oncology
DX: C01 Malignant neoplasm of base of tongue (principal); Z51.11 Encounter for antineoplastic chemotherapy
CPT/HCPCS: 80053; 85025; 96413; J8501; J8540; J9045; Q0166

== ENCOUNTER 2024-12-21 10:10 | Outpatient (CLI) | payer MEDICAID, SELFPAY ==
--- OUTSIDE RECORDS SUMMARY | 2024-12-21 10:19 | XMS_ITS | Clinical Summary ---
Author Organization [facility] Address [address] [place] [address] Care Team Providers Care Manufacture Specialist Name Role Phone Unavailable Primary Care [...] 2017 UKY-Zoster Vaccines (1 of 2) 2017 [id number]-18 Vaccine (1 - 20 24-25 season) 2024 UKY-Influenza Vaccine (#1) 2024 HPV Vaccines Aged [...]
--- OUTSIDE RECORDS SUMMARY | 2024-12-21 10:19 | XMS_ITS | Clinical Summary ---
Author Organization [facility] Address [address] [place] [phone] Care Team Providers Care Vice President Medical Affairs Name Role Phone Talia Krishna Primary Care [...] of 2) 2017 COVID-19 Vaccine (1 - season) 2024 INFLUENZA VACCINE 01/11/2025 Insurance Care Teams Vice President Medical Affairs Relationship Specialty Start Date End Date Talia Krishna PA PCP - General Physician Data Integrity Consultant 07/22/15
[2024-12-21 10:41] LABS: Albumin Level 4.5 g/dl (3.5-5.0); Chloride 101 mmol/L (98-107); Potassium 4.6 mmoL/L (3.5-5.1); Sodium 139 mmol/L (136-145)
[2024-12-21 10:44] LABS: Alanine Aminotransferase 27 U/L (12-78); Albumin/Globulin Ratio 1.7 (1.1-1.8); Alkaline Phosphatase 77 U/L (38-126); Anion Gap 11.6 mEq/L (5-15); Aspartate Amino Transferase 24 U/L (17-59); Bilirubin,Total 1.0 mg/dl (0.2-1.3); Blood Urea Nitrogen 18 mg/dl (9-20); Carbon Dioxide 31 mmol/L (22.0-30.0); Creatinine,Serum 1.10 mg/dl (0.66-1.25); Estimated Glomerular Filt Rate 69 ml/min (>60); GFR (African American) 83 ML/MIN (>60); Globulin 2.6 g/dL (1.3-3.2); Hematocrit 38.9 % (42.0-52.0); Hemoglobin 13.3 g/dL (14.1-18.0); Immature Granulocytes % 1.1 %; Mean Corpuscular HGB Conc 34.2 g/dL (31.8-35.4); Mean Corpuscular Hemoglobin 32.9 pg (27.0-31.2); Mean Corpuscular Volume 96.3 fl (80-94); Nucleated Red Blood Cells % 0 %; Platelet Count 167 K/mm3 (142-424); Red Blood Count 4.04 M/mm3 (4.60-6.20); Red Cell Distribution Width-SD 43.4 fL; Total Protein,Serum 7.1 g/dl (6.3-8.2); White Blood Count 5.3 K/mm3 (4.8-10.8)
[2024-12-21 10:45] LABS: Calcium 9.7 mg/dl (8.4-10.2); Glucose 156 mg/dl (74-100)
[2024-12-21 11:00] VITALS: BP 124/75; PULSE 66; RESP 18; TEMP 36.4; O2SAT 98
[2024-12-21] MEDS: APREPITANT 125MG/80MG TRIFOLD PACK 1 PACKET PO (11:00)
[2024-12-21] MEDS: DEXAMETHASONE 4MG TABLET 12 MG PO (11:00)
[2024-12-21] MEDS: GRANISETRON 1 MG 2 MG PO (11:00)
[2024-12-21] MEDS: 0.9 % SODIUM CHLORIDE 50 ML IV (11:14)
[2024-12-21 11:32] VITALS: BP 149/60; PULSE 62; RESP 18; O2SAT 98
[2024-12-21] MEDS: CARBOplatin 150 MG in 0.9 % SODIUM CHLORIDE 100 ML 230 MG IV (11:32)
[2024-12-21 12:10] VITALS: BP 137/77; PULSE 76; RESP 20; O2SAT 99
[2024-12-21 12:15] VITALS: BP 131/69; PULSE 69; RESP 20; O2SAT 98
== END 2024-12-21 12:15 | disposition home or self-care (01) ==
LOC: INF 10:12
PROVIDERS: PCP Family Medicine; Visit Provider Internal Medicine Medical Oncology
DX: C02.9 Malignant neoplasm of tongue, unspecified (principal); Z51.11 Encounter for antineoplastic chemotherapy
CPT/HCPCS: 80053; 85025; 96413; J8540; J9045; Q0166

== ENCOUNTER 2024-12-27 09:27 | Outpatient (CLI) | payer MEDICAID, SELFPAY ==
--- OUTSIDE RECORDS SUMMARY | 2024-11-04 07:48 | XMS_ITS | Encounter Summary ---
Author Organization [employer] ([place], [place], [place], [place]) Address [address] [place] [address] Care Team Providers Care Photo Manager Name Role Phone Unavailable Primary Care Provider Unavailabl e Reason for Referral * CAT Scan (Routine) - New Request Specialty Diagnoses / Procedures Referred By Esteban de oliveira Referred To Contact Radiology Diagnoses Malignant neoplasm of pharynx, unspecified (HCC) Procedures PET/CT Skull Base-Mid Thigh (Whole Body) Dae Rowe MD [address] [place] [address] Phone: tel: fax: Referral ID Status Reason Start Date Expiration Date V isits Requested Visits Authorized [id number] New Request 11/01/2024 11/01/2025 1 1 Reason for Visit * CAT Scan (Routine) - New Request Specialty Diagnoses / Procedures Referred By Esteban de oliveira Referred To Contact Radiology Diagnoses Malignant neoplasm of pharynx, unspecified (HCC) Procedures PET/CT Skull Base-Mid Thigh (Whole Body) Dae Rowe MD [address] [place] [address] Phone: tel: fax: Referral ID Status Reason Start Date Expiration Date V isits Requested Visits Authorized [id number] New Request 11/01/2024 11/01/2025 1 1 Encounter Details Date Type Department Care Team (Late st Contact Info) Description 11/04/2024 7:48 AM EDT - 11/04/2024 11:59 PM EDT Hospital Encounter [facility] PET CT - [address] [place] [phone] Dae Rowe MD [address] [place] [address] Malignant neoplasm of pharynx, unspecified (HCC) Discharge [...] by Cheko Medina PA-C. Dae Rowe MD [facility] [place] CT ORDERABLES Final Resul t documented in this encounter Visit Diagnoses Diagnosis Malignant neoplasm of pharynx, unspecified (HCC) Malignant neoplasm of pharynx, unspecified documented in this encounter
[2024-12-27 09:52] LABS: Hematocrit 37.3 % (42.0-52.0); Hemoglobin 12.6 g/dL (14.1-18.0); Immature Granulocytes % 0.6 %; Mean Corpuscular HGB Conc 33.8 g/dL (31.8-35.4); Mean Corpuscular Hemoglobin 32.7 pg (27.0-31.2); Mean Corpuscular Volume 96.9 fl (80-94); Nucleated Red Blood Cells % 0 %; Platelet Count 175 K/mm3 (142-424); Red Blood Count 3.85 M/mm3 (4.60-6.20); Red Cell Distribution Width-SD 43.0 fL; White Blood Count 7.1 K/mm3 (4.8-10.8)
--- OUTSIDE RECORDS SUMMARY | 2024-12-27 09:59 | XMS_ITS | Clinical Summary ---
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
--- OUTSIDE RECORDS SUMMARY | 2024-12-27 09:59 | XMS_ITS | Referral Summary ---
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
--- OUTSIDE RECORDS SUMMARY | 2024-12-27 09:59 | XMS_ITS | Clinical Summary ---
Author Organization [facility] Address [address] [place] [phone] Care Team Providers Care Supervisor Treating And Pumping Name Role Phone Talia Krishna Primary Care [...] 2024 INFLUENZA VACCINE 01/11/2025 Insurance Care Teams Supervisor Treating And Pumping Relationship Specialty Start Date End Date Talia Krishna PA PCP - General Physician Software Quality Assurance Analyst 07/22/15
--- OUTSIDE RECORDS SUMMARY | 2024-12-27 09:59 | XMS_ITS | Clinical Summary ---
Author Organization [facility] Address [address] [place] [address] Care Team Providers Care Union Contract Representative Name Role Phone Unavailable Primary Care [...] 2017 UKY-Zoster Vaccines (1 of 2) 2017 [id number]-98 Vaccine (1 - 20 24-25 season) 2024 [...]
[2024-12-27 10:19] LABS: Alanine Aminotransferase 21 U/L (12-78); Albumin Level 4.0 g/dl (3.5-5.0); Albumin/Globulin Ratio 1.6 (1.1-1.8); Alkaline Phosphatase 73 U/L (38-126); Anion Gap 10.7 mEq/L (5-15); Aspartate Amino Transferase 17 U/L (17-59); Bilirubin,Total 1.0 mg/dl (0.2-1.3); Blood Urea Nitrogen 14 mg/dl (9-20); Calcium 9.4 mg/dl (8.4-10.2); Carbon Dioxide 31 mmol/L (22.0-30.0); Chloride 99 mmol/L (98-107); Creatinine,Serum 1.10 mg/dl (0.66-1.25); Estimated Glomerular Filt Rate 69 ml/min (>60); GFR (African American) 83 ML/MIN (>60); Globulin 2.5 g/dL (1.3-3.2); Glucose 170 mg/dl (74-100); Potassium 4.7 mmoL/L (3.5-5.1); Sodium 136 mmol/L (136-145); Total Protein,Serum 6.5 g/dl (6.3-8.2)
[2024-12-27] MEDS: DEXAMETHASONE 4MG TABLET 12 MG PO (10:30)
[2024-12-27 10:31] VITALS: BP 125/63; PULSE 71; RESP 18; TEMP 36.4; O2SAT 98
[2024-12-27] MEDS: APREPITANT 125MG/80MG TRIFOLD PACK 1 PACKET PO (10:31)
[2024-12-27] MEDS: GRANISETRON 1 MG 2 MG PO (10:31)
[2024-12-27 11:15] VITALS: BP 131/68; PULSE 76; RESP 20; O2SAT 98
--- NOTE | 2024-12-27 11:34 | PC.NURSE ---
1120-Pt escorted to ER via wc to be evaluated for c/o of chest pain. Report called prior to pt arrival and report given to nursing staff at bs-pt in stable condition and ekg has been started. IV to sl left in place to lt ac.
== END 2024-12-27 11:20 | disposition home or self-care (01) ==
LOC: INF 09:28
PROVIDERS: PCP Family Medicine; Visit Provider Internal Medicine Medical Oncology
DX: C01 Malignant neoplasm of base of tongue (principal)
CPT/HCPCS: 36415; 80053; 85025; J8540; J9045; Q0166

== ENCOUNTER 2024-12-27 11:19 | Emergency (ER) | payer MEDICAID, SELFPAY ==
--- OUTSIDE RECORDS SUMMARY | 2024-11-04 07:48 | XMS_ITS | Encounter Summary ---
Author Organization [employer] ([place], [place], [place], [place]) Address [address] [place] [address] Care Team Providers Care Powder Coater Name Role Phone Unavailable Primary Care Provider Unavailabl e Reason for Referral * CAT Scan (Routine) - New Request Specialty Diagnoses / Procedures Referred By Esteban de oliveira Referred To Contact Radiology Diagnoses Malignant neoplasm of pharynx, unspecified (HCC) Procedures PET/CT Skull Base-Mid Thigh (Whole Body) Dae Rowe MD [address] [place] [address] Phone: tel: fax: Referral ID Status Reason Start Date Expiration Date V isits Requested Visits Authorized [id number] New Request 11/01/2024 11/01/2025 1 1 Reason for Visit * CAT Scan (Routine) - New Request Specialty Diagnoses / Procedures Referred By Esteban de oliveira Referred To Contact Radiology Diagnoses Malignant neoplasm of pharynx, unspecified (HCC) Procedures PET/CT Skull Base-Mid Thigh (Whole Body) Dae Rowe MD [address] [place] [address] Phone: tel: fax: Referral ID Status Reason Start Date Expiration Date V isits Requested Visits Authorized [id number] New Request 11/01/2024 11/01/2025 1 1 Encounter Details Date Type Department Care Team (Late st Contact Info) Description 11/04/2024 7:48 AM EDT - 11/04/2024 11:59 PM EDT Hospital Encounter [facility] PET CT - [address] [place] [phone] Dae Rowe MD [address] [place] [address] Malignant neoplasm of pharynx, unspecified (HCC) Discharge [...] by Cheko Medina PA-C. Dae Rowe MD [facility] [place] Final Resul t documented in this encounter Visit Diagnoses Diagnosis Malignant neoplasm of pharynx, unspecified (HCC) Malignant neoplasm of pharynx, unspecified documented in this encounter
--- NOTE | 2024-12-27 11:20 | ECG_ITS ---
APPROVED REPORT Exam: Resting ECG HR:63 bpm ECG Measurements Heart Rate 63 AXES RI 214 P 27 QRSd 113 QRS 22 QT 384 T 12 QTc 392 Conclusion SINUS RHYTHM WITH FIRST DEGREE AV BLOCK MODERATE INTRAVENTRICULAR CONDUCTION DELAY [110+ ms QRS DURATION] ABNORMAL ECG UNCONFIRMED REPORT Normal sinus rhythm. No ST elevation or depression. QTc of 392 Electronically signed by : CONTRERAS ANTOINE, 12/27/2024 16:04:40
[2024-12-27 11:29] VITALS: BP 132/87; PULSE 70; RESP 18; TEMP 37; O2SAT 96; BMI 27.6
--- NOTE | 2024-12-27 11:50 | CT_ITS ---
FINAL REPORT TECHNIQUE: Thin section axial CT with contrast with multiplanar reconstruction This study was performed with techniques to keep radiation doses as low as reasonably achievable, (ALARA). Individualized dose reduction techniques using automated exposure control or adjustment of mA and/or kV according to the patient''s size were employed. CLINICAL HISTORY: chest pain COMPARISON: None FINDINGS: Pulmonary vessels enhance in normal fashion without evidence of embolism. Thoracic aorta shows no dissection or aneurysm. No acute pulmonary density. A 3 mm nodule in the right lateral upper lobe is stable. There is no significant pleural effusion. There is no significant pericardial effusion. No mediastinal or hilar adenopathy is present. IMPRESSION: No evidence of pulmonary embolism Reviewed, Interpreted and Dictated by Martha Tompkins MD Transcribed by Janelle Quintero Authenticated and [facility]
--- OUTSIDE RECORDS SUMMARY | 2024-12-27 11:51 | XMS_ITS | Clinical Summary ---
Author Organization [facility] Address [address] [place] [phone] Care Team Providers Care Weapons Specialist Name Role Phone Talia Krishna Primary Care Provider [phone] Allergies Active Allergy Reactions Criticality Noted Date [...] 2024 INFLUENZA VACCINE 01/11/2025 Insurance Care Teams Weapons Specialist Relationship Specialty Start Date End Date Talia Krishna PA PCP - General Physician Leather Stripping Machine Operator 07/22/15
--- OUTSIDE RECORDS SUMMARY | 2024-12-27 11:51 | XMS_ITS | Clinical Summary ---
Author Organization [facility] Address [address] [place] [address] Care Team Providers Care Web Merchandiser Name Role Phone Unavailable Primary Care Provider [...] 2017 UKY-Zoster Vaccines (1 of 2) 2017 [id number] Vaccine (1 - 20 24-25 season) 2024 [...]
--- OUTSIDE RECORDS SUMMARY | 2024-12-27 11:51 | XMS_ITS | Referral Summary ---
Author Organization [employer] ([place], [place], [place], [place]) Address [address] [place] [address] Care Team Providers Care Bit Tapper Name Role Phone Unavailable Primary Care Provider Unavailabl e Encounters Date Type Department Care Team Description 11/04/2024 7:48 AM EDT - 11/04/2024 11:59 PM EDT Hospital Encounter [facility] PET CT - Robert O [address] [place] [address] Dae Rowe MD Malignant neoplasm of pharynx, [...] Resul t from Last 3 Months Insurance [facility] MEDICAID
--- OUTSIDE RECORDS SUMMARY | 2024-12-27 11:51 | XMS_ITS | Clinical Summary ---
Author Organization [employer] ([place], [place], [place], [place]) Address [address] [place] [address] Care Team Providers Care Commercial Lines Underwriter Name Role Phone Unavailable Primary Care Provider Unavailabl e Encounters Date Type Department Care Team Description 11/04/2024 7:48 AM EDT - 11/04/2024 11:59 PM EDT Hospital Encounter [facility] PET CT - Robert O [address] [place] [address] Dae Rowe MD Malignant neoplasm of pharynx, [...] from Last 3 Months Insurance [facility] MEDICAID
--- NOTE | 2024-12-27 11:57 | ED_ITS ---
<Statement entered by Luis Carlos Sumner MD - 12/27/24 20:54> I was consulted by the GAGAN, and we discussed the complexity of the problems being addressed. I approve the treatment and management plan for this patient's care in the emergency department, thus performing a substantive portion of the medical decision making. Luis Carlos Sumner MD Discharge Plan Disposition Patient Disposition: Home, Self-Care Prescriptions Prescriptions: No Action omega-3 fatty acids 500 mg capsule 500 mg PO DAILY fluconazole 100 mg tablet 100 mg PO DAILY nystatin 100,000 unit/mL suspension 1 ml PO acyclovir 5 % cream topical metoprolol succinate 50 mg tablet extended release 24 hr See Rx Instructions .ROUTE .COMPLEX Qty: 45 3RF Dose Instruction: TAKE 1&1/2 TABLETS BY MOUTH EVERY DAY Rx Instructions: TAKE 1&1/2 TABLETS BY MOUTH EVERY DAY omeprazole 40 mg capsule,delayed release(DR/EC) 40 mg PO DAILY 90 Days Qty: 90 0RF loratadine 10 mg tablet 10 mg PO DAILY 90 Days Qty: 90 0RF hydroxyzine HCl 10 mg tablet See Rx Instructions .ROUTE .COMPLEX Qty: 60 2RF Dose Instruction: TAKE 1 TABLET BY MOUTH EVERY 8 HOURS NEEDED Rx Instructions: TAKE 1 TABLET BY MOUTH EVERY 8 HOURS NEEDED rosuvastatin 40 mg tablet 40 mg PO DAILY Qty: 30 3RF ranolazine 500 mg tablet extended release 12 hr 500 mg PO BID Qty: 180 2RF aspirin [Adult Low Dose Aspirin] 81 mg tablet,delayed release (DR/EC) 81 mg PO DAILY 90 Days Qty: 90 0RF prochlorperazine maleate [Compazine] 10 mg tablet 10 mg PO Q6H PRN (Reason: nausea and vomiting) Qty: 30 1RF Rx Instructions: take one tablet every 6 hrs as needed for n/v Referrals Follow up/Referrals: Guanaco Hdz MD [Staff Physician, Oncology] - See instructions Bryan Carlisle MD [Staff Physician, Cardiology] - See instructions Provider,MD Kai [Primary Care Provider, Medical] - See instructions Activity Restrictions/Add. Instructions Additional Instructions/Restrictions: Increase fluids and rest. Take meds as directed. Follow-up with Dr. Carlisle and Dr. Sharpe as directed. Clinical Impressions Clinical Impression: Chest pain Instructions Patient Instructions: DI for Chest Pain Print Language Print Language: Setswana Discharge ED Provider: Luis Carlos Sumner General Chief Complaint: Chest Pain Stated Complaint: Chest Pain Time Seen by Provider: 12/27/24 11:27 Mode of Arrival: Wheelchair Source of Information: Patient Description of Symptoms (Recalled from ER Triage Doc. by RN): patient states he was at dr camarena office to get chemo treatment when he felt a poking sensation (stated by patient) in his left breast that last about 20mins. and is now intermittent. denies any shortness of breath. 08/20 pain History of Present Illness HPI narrative: 59-year-old male presents to the ED from outpatient. He was about to get his chemo treatment when he started having chest pain that lasted approximately 20 minutes and now is coming and going. He denies shortness of breath. No nausea no vomiting. No abdominal pain. He has had a recent heart cath within the last year but they did not place any stents. He is receiving chemo and radiation for cancer he says he believes it is in his right neck. Patient is a poor historian. He had tongue cancer and throat cancer. Related Data Home Medications ?Medication ?Instructions ?Recorded ?Confirmed omega-3 fatty acids 500 mg capsule 500 mg PO DAILY 12/27/24 acyclovir 5 % topical cream applic topical 12/27/24 fluconazole 100 mg tablet 100 mg PO DAILY 12/27/24 nystatin 100,000 unit/mL oral 1 ml PO 12/27/24 5 suspension Previous Rx's ?Medication ?Instructions ?Recorded metoprolol succinate 50 mg See Rx Instructions .Route 09/27/24 tablet,extended release 24 hr .COMPLEX #45 tabs hydroxyzine HCl 10 mg tablet See Rx Instructions .Rout e 10/17/24 .COMPLEX #60 tabs loratadine 10 mg tablet 10 mg PO DAILY 90 days #90 t abs 10/17/24 omeprazole 40 mg capsule,delayed 40 mg PO DAILY 90 day s #90 caps 10/17/24 release rosuvastatin 40 mg tablet 40 mg PO DAILY High choleste rol 10/17/24 #30 tabs ranolazine 500 mg tablet,extended 500 mg PO BID #180 t abs 10/26/24 release,12 hr aspirin 81 mg tablet,delayed 81 mg PO DAILY HEART 90 d ays #90 11/21/24 release (Adult Low Dose Aspirin) tabs prochlorperazine maleate 10 mg 10 mg PO Q6H PRN nausea and 12/13/24 tablet (Compazine) vomiting #30 tabs Allergies Allergy/AdvReac Type Severity Reaction Status Date / Time penicillin G Allergy Mild I-RASH Verified 12/21/24 11:47 [facility] Disclaimer: The information contained in this section may have been updated after the patient was seen, as this information can be updated by other users. Medical History Throat cancer Tympanosclerosis of both ears Deviated septum Squamous cell carcinoma of lymph node History of diabetes mellitus Enlarged lymph nodes Abnormal findings on diagnostic imaging of heart and coronary circulation Encounter for pre-operative cardiovascular clearance Atypical angina Exertional dyspnea Depression Hyperlipidemia Migraines Hypertension Diabetes mellitus Surgical History History of incision and drainage History of colonoscopy Hx of cardiac cath H/O endoscopy History of placement of ear tubes H/O hernia repair H/O right knee surgery Family History Mother Cancer Social History Smoking Status: Former smoker tobacco type: cigarettes packs per day: 1 years smoked: 40 alcohol intake: never substance use type: marijuana current occupational status: disabled Travel in the last 8 weeks?: None household members: children housing: apartment Have you lived/traveled outside US in past 30 days?: No Contact w/someone who lives/traveled outside US past 30 days?: No Exposure to someone with infectious disease in past 14 days?: No Do you have a fever (greater than 100.4 F or 38 C)?: No Have you tested positive for COVID-19?: No Exposed to someone with COVID-19 in past 14 days?: No Do you have a sore throat?: No Do you have a cough?: No Do you have any weakness?: No Do you have any diarrhea?: No Are you experiencing any unusual bleeding?: No Do you have any muscle aches/pain?: No Do you have any abdominal pain?: No Are you experiencing loss of taste or smell?: No Other Medical History Have you received the Flu Vaccine for this season: No Have you received the Pneumonia Vaccine: No ROS Obtained: Yes Systems reviewed as appropriate & no additional complaints except as documented Constitutional Constitutional: Reports as per HPI Physical Exam General General appearance: alert Head Head exam: normocephalic Eye Eye exam: Present PERRL ENT ENT exam: Present mucous membranes moist Neck Neck exam: Present trachea midline Chest Chest inspection: Present symmetric chest wall rise Respiratory Respiratory exam: Present normal lung sounds bilaterally Cardiovascular Cardiovascular exam: Present regular rate, normal rhythm, normal heart sounds, +S1 and +S2 Abdominal Exam Abdominal exam: Present soft and normal bowel sounds Extremities Exam Extremities exam: Present normal inspection, full ROM and normal capillary refill Back Exam Back exam: Present full ROM Neurological Exam Neurological exam: Present alert and oriented X3 Psychiatric Psychiatric exam: Present normal affect and normal mood Skin Skin exam: Present warm and dry HEART Score HEART Score HEART Score assessment performed?: Yes History (anamnesis): Slightly suspicious ECG: Normal Age: 45-65 years Risk factors: 3 or more risk factors Troponin: </= normal limit HEART Score: 3 Critical Care Critical Care Time Critical Care Time: No Medical Decision Making [place] Inquiry Pt receiving controlled substance: No [place] was queried for this patient: No Vital Signs Vital Signs: 12/27/24 11:29 12/27/24 12:00 12/27/24 12:30 Temperature 98.6 F Temperature Source Oral Pulse Rate 67 58 L Pulse Rate [Right Radial] 70 Respiratory Rate 18 15 12 Blood Pressure 125/81 121/72 Blood Pressure [Right Arm] 132/87 Blood Pressure Mean 91 81 Blood Pressure Mean [Right Arm] 102 Blood Pressure Source Blood Pressure Source [Right Arm] Automatic Cuff Blood Pressure Position Blood Pressure Position [Right Arm] Supine 02 Sat by Pulse Oximetry 96 91 L 92 L Oxygen Delivery Method Room Air 12/27/24 15:26 Temperature 98.5 F Temperature Source Oral Pulse Rate 87 Pulse Rate [Right Radial] Respiratory Rate 15 Blood Pressure 130/85 Blood Pressure [Right Arm] Blood Pressure Mean Blood Pressure Mean [Right Arm] Blood Pressure Source Automatic Cuff Blood Pressure Source [Right Arm] Blood Pressure Position Sitting Blood Pressure Position [Right Arm] 02 Sat by Pulse Oximetry Oxygen Delivery Method Room Air Lab Data Labs: Lab Results 12/27/24 11:42: WBC 7.0, RBC 3.80 L, Hgb 12.6 L, Hct 36.6 L, MCV 96.3 H, MCH 33.2 H, MCHC 34.4, RDW 12.3, Plt Count 182, MPV 10.6 H, Neut % (Auto) 85.2 H, L ymph % (Auto) 7.6 L, Weber % (Auto) 5.6, Eos % (Auto) 0.9, Baso % (Auto) 0.3, Neut # (Auto) 6.0, Lymph # (Auto) 0.5 L, Weber # (Auto) 0.4, Eos # (Auto) 0.1, Baso # (Auto) 0.0, Total Counted 100, Neutrophils % (Manual) 86 H, Band Neutrophils % 1.0, Lymphocytes % (Manual) 6 L, Monocytes % (Manual) 6, Basophils % (Manual) 1.0, Platelet Estimate Normal, RBC Morphology Normal, PT 10.9, INR 0.98, Sodium 136, Potassium 5.0, Chloride 98, Carbon Dioxide 32 H, Anion Gap 11.0, BUN 15, Creatinine 1.10, Estimated Creat Clear 105, Estimated GFR 69, Est GFR ( Amer) 83, Glucose 158 H, Calcium 9.7, Magnesium 1.9, Total Bilirubin 1.1, AST 22 D, ALT 18, Alkaline Phosphatase 72, Troponin I < 0.01, Total Protein 6.6, Albumin 4.1, Globulin 2.5, Albumin/Globulin Ratio 1.6, Lipase 26 12/27/24 14:07: Troponin I < 0.01 12/27/24 11:42 12/27/24 11:42 Response Orders (Tests/Meds): ED MEDICATIONS Discontinued Medications Generic Name Dose Route Start Last Admin Trade Name Franciscoq PRN Reason Stop Dose Admin Famotidine 20 mg 12/27/24 11:32 12/27/24 11:58 Famotidine 20mg/2ml Vial IV 12/27/24 11:33 20 mg ONCE ONE Administration Iopamidol 85 ml 12/27/24 13:03 12/27/24 13:04 Iopamidol-370 (76%);100ml Bottle IV 12/27/24 13:04 85 ml ONCE ONE Administration Morphine Sulfate 2 mg 12/27/24 11:32 12/27/24 11:58 Morphine 2mg/Ml Syringe IV 12/27/24 11:33 2 mg ONCE ONE Administration Ondansetron HCl 4 mg 12/27/24 11:32 12/27/24 11:58 Ondansetron 4mg/2ml Vial IV 12/27/24 11:33 4 mg ONCE ONE Administration Sodium Chloride 8 ml 12/27/24 11:32 Sodium Chloride 0.9% 10ml Vial IV 01/26/25 11:31 NEEDED PRN dilute pepcid Sodium Chloride 50 ml 12/27/24 13:03 12/27/24 13:04 0.9 % Sodium Chloride 50 Ml Vial IV 12/27/24 13:04 50 ml ONCE ONE Administration Sodium Chloride 10 ml 12/27/24 13:03 Sodium Chloride 0.9% 10ml Syr (Rad Only) IV 01/26/25 13:02 NEEDED PRN Maintain IV Site ORDERS Category Date Time Status CT angio chest PE protocol Stat Cat Scan 12/27/24 11:50 Completed CBC [Complete Blood Count Auto Diff] Stat Lab 12/27/24 11:42 Completed Comprehensive Metabolic Panel Stat Lab 12/27/24 11:42 Completed Lipase Stat Lab 12/27/24 11:42 Completed Magnesium Stat Lab 12/27/24 11:42 Completed PT INR [Prothrombin Time INR] Stat Lab 12/27/24 11:42 Completed Trop I [Troponin I] Stat Lab 12/27/24 11:42 Completed Troponin I Q3H Lab 12/27/24 14:07 Completed MDM Narrative Medical Decision Narrative: patient is a 59-year-old male presenting to the emergency department for evaluation of chest pain. Patient is hemodynamically stable and nontoxic- appearing upon arrival, afebrile. Differential diagnosis includes ACS, angina, reflux, COPD, among others. Workup will be conducted with hematologic labs, specific imaging. Initial inventions include crystalloid bolus, analgesics. Initial workup reviewed by me hematologic labs are remarkable for normal troponins x 2. Labs have been nonactionable. Patient feels well and has been sleeping throughout ER stay. He and I discussed following up with his primary care physician. Patient is safe for discharge home
[2024-12-27 11:58] LABS: Hematocrit 36.6 % (42.0-52.0); Hemoglobin 12.6 g/dL (14.1-18.0); Immature Granulocytes % 0.4 %; Mean Corpuscular HGB Conc 34.4 g/dL (31.8-35.4); Mean Corpuscular Hemoglobin 33.2 pg (27.0-31.2); Mean Corpuscular Volume 96.3 fl (80-94); Nucleated Red Blood Cells % 0 %; Platelet Count 182 K/mm3 (142-424); Red Blood Count 3.80 M/mm3 (4.60-6.20); Red Cell Distribution Width-SD 42.5 fL; White Blood Count 7.0 K/mm3 (4.8-10.8)
[2024-12-27] MEDS: ONDANSETRON 4MG/2ML VIAL 4 MG IV (11:58)
[2024-12-27] MEDS: MORPHINE 2MG/ML SYRINGE 2 MG IV (11:58)
[2024-12-27] MEDS: FAMOTIDINE 20MG/2ML VIAL 20 MG IV (11:58)
[2024-12-27 12:00] VITALS: BP 125/81; PULSE 67; RESP 15; O2SAT 91
[2024-12-27 12:05] LABS: Albumin Level 4.1 g/dl (3.5-5.0); Chloride 98 mmol/L (98-107); Sodium 136 mmol/L (136-145)
[2024-12-27 12:06] LABS: INR 0.98 (0.9-1.1); Potassium 5.0 mmoL/L (3.5-5.1); Prothrombin Time 10.9 seconds (10.1-12.5)
[2024-12-27 12:08] LABS: Alanine Aminotransferase 18 U/L (12-78); Albumin/Globulin Ratio 1.6 (1.1-1.8); Alkaline Phosphatase 72 U/L (38-126); Anion Gap 11.0 mEq/L (5-15); Aspartate Amino Transferase 22 U/L (17-59); Bilirubin,Total 1.1 mg/dl (0.2-1.3); Blood Urea Nitrogen 15 mg/dl (9-20); Carbon Dioxide 32 mmol/L (22.0-30.0); Creatinine Clearance Estimated 105 mL/min (50-200); Creatinine,Serum 1.10 mg/dl (0.66-1.25); Estimated Glomerular Filt Rate 69 ml/min (>60); GFR (African American) 83 ML/MIN (>60); Globulin 2.5 g/dL (1.3-3.2); Total Protein,Serum 6.6 g/dl (6.3-8.2)
[2024-12-27 12:09] LABS: Calcium 9.7 mg/dl (8.4-10.2); Glucose 158 mg/dl (74-100); Lipase 26 U/L (23-300); Magnesium 1.9 mg/dl (1.6-2.3)
[2024-12-27 12:25] LABS: Troponin I < 0.01 ng/ml (0.00-0.034)
[2024-12-27 12:30] VITALS: BP 121/72; PULSE 58; RESP 12; O2SAT 92
[2024-12-27 12:36] LABS: RBC Morphology Normal; Total Cells Counted 100
[2024-12-27] MEDS: 0.9 % SODIUM CHLORIDE 50 ML VIAL IV (13:04)
[2024-12-27] MEDS: IOPAMIDOL-370 (76%);100ML BOTTLE 85 ML IV (13:04)
[2024-12-27 14:58] LABS: Troponin I < 0.01 ng/ml (0.00-0.034)
[2024-12-27 15:26] VITALS: BP 130/85; PULSE 87; RESP 15; TEMP 36.9; O2SAT 99
== END 2024-12-27 15:27 | disposition home or self-care (01) ==
PROVIDERS: Nurse Practitioner; Emergency Provider Student in an Organized Health Care Education/Training Program
DX: R07.9 Chest pain, unspecified (principal); C02.4 Malignant neoplasm of lingual tonsil; Z92.21 Personal history of antineoplastic chemotherapy; Z87.891 Personal history of nicotine dependence
CPT/HCPCS: 71275; 80053; 83690; 83735; 84484; 85007; 85025; 85610; 93005; 96374; 96375; 99285; J2270; J2405; Q9967

== ENCOUNTER 2024-12-29 09:04 | Outpatient (CLI) | payer MEDICAID, SELFPAY ==
--- OUTSIDE RECORDS SUMMARY | 2024-11-04 07:48 | XMS_ITS | Encounter Summary ---
Author Organization [employer] ([place], [place], [place], [place]) Address [address] [place] [address] Care Team Providers Care Pharmaceutical Specialty Representative Name Role Phone Unavailable Primary Care Provider Unavailabl e Reason for Referral * CAT Scan (Routine) - New Request Specialty Diagnoses / Procedures Referred By Esteban de oliveira Referred To Contact Radiology Diagnoses Malignant neoplasm of pharynx, unspecified (HCC) Procedures PET/CT Skull Base-Mid Thigh (Whole Body) Dae Rowe MD [address] [place] [address] Phone: tel: fax: Referral ID Status Reason Start Date Expiration Date V isits Requested Visits Authorized [id number] New Request 11/01/2024 11/01/2025 1 1 Reason for Visit * CAT Scan (Routine) - New Request Specialty Diagnoses / Procedures Referred By Esteban de oliveira Referred To Contact Radiology Diagnoses Malignant neoplasm of pharynx, unspecified (HCC) Procedures PET/CT Skull Base-Mid Thigh (Whole Body) Dae Rowe MD [address] [place] [address] Phone: tel: fax: Referral ID Status Reason Start Date Expiration Date V isits Requested Visits Authorized [id number] New Request 11/01/2024 11/01/2025 1 1 Encounter Details Date Type Department Care Team (Late st Contact Info) Description 11/04/2024 7:48 AM EDT - 11/04/2024 11:59 PM EDT Hospital Encounter [facility] PET CT - [address] [place] [phone] Dae Rowe MD [address] [place] [address] Malignant neoplasm of pharynx, unspecified (HCC) Discharge [...]
[2024-12-29] MEDS: DEXAMETHASONE 4MG TABLET 12 MG (09:22)
[2024-12-29] MEDS: GRANISETRON 1 MG 2 MG PO (09:22)
--- OUTSIDE RECORDS SUMMARY | 2024-12-29 09:22 | XMS_ITS | Clinical Summary ---
Author Organization [facility] Address [address] [place] [id number] Care Team Providers Care Per Diem Registered Nurse Name Role Phone Talia Krishna Primary Care [...] 2024 INFLUENZA VACCINE 01/11/2025 Insurance Care Teams Per Diem Registered Nurse Relationship Specialty Start Date End Date Talia Krishna PA PCP - General Physician Axle Inspector 07/22/15
--- OUTSIDE RECORDS SUMMARY | 2024-12-29 09:22 | XMS_ITS | Clinical Summary ---
Author Organization [facility] Address [address] [place] [address] Care Team Providers Care Supervisor Sound Technician Name Role Phone Unavailable Primary Care [...] 2017 UKY-Zoster Vaccines (1 of 2) 2017 [id number] Vaccine (1 - 20 24-25 season) 2024 [...]
--- OUTSIDE RECORDS SUMMARY | 2024-12-29 09:22 | XMS_ITS | Clinical Summary ---
Author Organization [employer] ([place], [place], [place], [place]) Address [address] [place] [address] Care Team Providers Care Donkey Ride Operator Name Role Phone Unavailable Primary Care Provider Unavailabl e Encounters Date Type Department Care Team Description 11/04/2024 7:48 AM EDT - 11/04/2024 11:59 PM EDT Hospital Encounter [facility] PET CT - [address] [place] [id number] Dae Rowe MD Malignant neoplasm of pharynx, [...] Resul t from Last 3 Months Insurance [facility] MEDICAID
--- OUTSIDE RECORDS SUMMARY | 2024-12-29 09:22 | XMS_ITS | Referral Summary ---
Author Organization [employer] ([place], [place], [place], [place]) Address [address] [place] [address] Care Team Providers Care Digital Specialist Name Role Phone Unavailable Primary Care Provider Unavailabl e Encounters Date Type Department Care Team Description 11/04/2024 7:48 AM EDT - 11/04/2024 11:59 PM EDT Hospital Encounter [facility] PET CT - [address] [place] [address] Dae Rowe MD Malignant neoplasm of pharynx, [...] Resul t from Last 3 Months Insurance [facility] MEDICAID
[2024-12-29] MEDS: APREPITANT 125MG/80MG TRIFOLD PACK 1 PACKET PO (09:23)
[2024-12-29] MEDS: CARBOplatin 150 MG in 0.9 % SODIUM CHLORIDE 100 ML 230 MG IV (10:07)
[2024-12-29 10:10] VITALS: BP 111/59; PULSE 66; RESP 18; TEMP 36.8
[2024-12-29 10:45] VITALS: BP 117/62; PULSE 72
[2024-12-29] MEDS: SODIUM CHLORIDE 0.9% 10ML FLUSH SYRINGE 10 ML IV (10:50)
== END 2024-12-29 23:59 | disposition home or self-care (01) ==
PROVIDERS: PCP Family Medicine; Visit Provider Internal Medicine Medical Oncology
DX: C01 Malignant neoplasm of base of tongue (principal); Z51.11 Encounter for antineoplastic chemotherapy
CPT/HCPCS: 96413; J8501; J8540; J9045; Q0166

== ENCOUNTER 2025-01-05 09:02 | Outpatient (CLI) | payer MEDICAID, SELFPAY ==
[2025-01-05 09:05] VITALS: BMI 27.3
--- OUTSIDE RECORDS SUMMARY | 2025-01-05 09:05 | XMS_ITS | Clinical Summary ---
Author Organization [employer] ([place], [place], [place], [place]) Address [address] [place] [address] Care Team Providers Care Padding Gluer Name Role Phone Unavailable Primary Care Provider Unavailabl e Encounters Date Type Department Care Team Description 11/04/2024 7:48 AM EDT - 11/04/2024 11:59 PM EDT Hospital Encounter [facility] PET CT - [address] [place] [phone] Dae Rowe MD Malignant neoplasm of pharynx, [...] Resul t from Last 3 Months Insurance [facility] MEDICAID
--- OUTSIDE RECORDS SUMMARY | 2025-01-05 09:05 | XMS_ITS | Referral Summary ---
Author Organization [employer] ([place], [place], [place], [place]) Address [address] [place] [address] Care Team Providers Care Supervisor [employer] Name Role Phone Unavailable Primary Care Provider Unavailabl e Encounters Date Type Department Care Team Description 11/04/2024 7:48 AM EDT - 11/04/2024 11:59 PM EDT Hospital Encounter [facility] PET CT - [address] [place] [address] Dae Rowe MD Malignant neoplasm of pharynx, [...] Lnin Love. Transcribed by Cheko Medina PA-C. us Dae Rowe MD IMG CT ORDERABLES Final Resul t from Last 3 Months Insurance [facility] MEDICAID
--- OUTSIDE RECORDS SUMMARY | 2025-01-05 09:06 | XMS_ITS | Clinical Summary ---
Author Organization [facility] Address [address] [place] [id number] Care Team Providers Care Electrifier Operator Name Role Phone Talia Krishna Primary [...] 2017 ZOSTER VACCINE (1 of 2) 2017 INFLUENZA VACCINE 11/11/2024 Insurance Member Subscriber Plan / Payer (Ef fective 2013-Present) Name:Guanaco Gregorio Relation to Subscriber:Self Name:Guanaco Gregorio Payer ID[id number] Group ID:[id number] Type:Not on file Address: [place] [id number] Care Teams Electrifier Operator Relationship Specialty Start Date End Date Talia Krishna PA PCP - General Physician Flakeboard Line Tender 07/22/15
--- OUTSIDE RECORDS SUMMARY | 2025-01-05 09:06 | XMS_ITS | Clinical Summary ---
Author Organization [facility] Address [address] [place] [address] Care Team Providers Care Spring Up Supervisor Name Role Phone Unavailable Primary Care [...] 2017 UKY-Zoster Vaccines (1 of 2) 2017 [id number] Vaccine (1 - 20 24-25 season) 2024 [...] patient's age to complete [place] [id number]
[2025-01-05 09:20] LABS: Hematocrit 38.7 % (42.0-52.0); Hemoglobin 13.3 g/dL (14.1-18.0); Immature Granulocytes % 0.6 %; Mean Corpuscular HGB Conc 34.4 g/dL (31.8-35.4); Mean Corpuscular Hemoglobin 32.8 pg (27.0-31.2); Mean Corpuscular Volume 95.6 fl (80-94); Nucleated Red Blood Cells % 0 %; Platelet Count 190 K/mm3 (142-424); Red Blood Count 4.05 M/mm3 (4.60-6.20); Red Cell Distribution Width-SD 43.8 fL; White Blood Count 5.3 K/mm3 (4.8-10.8)
[2025-01-05 09:33] LABS: Alanine Aminotransferase 19 U/L (12-78); Albumin Level 4.1 g/dl (3.5-5.0); Albumin/Globulin Ratio 1.5 (1.1-1.8); Alkaline Phosphatase 89 U/L (38-126); Anion Gap 12.9 mEq/L (5-15); Aspartate Amino Transferase 18 U/L (17-59); Bilirubin,Total 1.2 mg/dl (0.2-1.3); Blood Urea Nitrogen 17 mg/dl (9-20); Calcium 9.4 mg/dl (8.4-10.2); Carbon Dioxide 27 mmol/L (22.0-30.0); Chloride 99 mmol/L (98-107); Creatinine Clearance Estimated 115 mL/min (50-200); Creatinine,Serum 1.00 mg/dl (0.66-1.25); Estimated Glomerular Filt Rate 77 ml/min (>60); GFR (African American) 93 ML/MIN (>60); Globulin 2.7 g/dL (1.3-3.2); Glucose 172 mg/dl (74-100); Potassium 3.9 mmoL/L (3.5-5.1); Sodium 135 mmol/L (136-145); Total Protein,Serum 6.8 g/dl (6.3-8.2)
[2025-01-05] MEDS: APREPITANT 125MG/80MG TRIFOLD PACK 1 PACKET PO (09:40)
[2025-01-05] MEDS: GRANISETRON 1 MG 2 MG PO (09:40)
[2025-01-05] MEDS: DEXAMETHASONE 4MG TABLET 12 MG (09:40)
[2025-01-05 10:00] VITALS: BP 146/76; PULSE 79; RESP 18; TEMP 36.4; O2SAT 99
[2025-01-05] MEDS: CARBOplatin 150 MG in 0.9 % SODIUM CHLORIDE 100 ML 230 MG IV (10:02)
[2025-01-05 10:35] VITALS: BP 126/84; PULSE 75
[2025-01-05 10:36] LABS: RBC Morphology Normal; Total Cells Counted 100
== END 2025-01-05 23:59 | disposition home or self-care (01) ==
LOC: INF 09:03
PROVIDERS: PCP Family Medicine; Visit Provider Internal Medicine Medical Oncology
DX: C01 Malignant neoplasm of base of tongue (principal); Z51.11 Encounter for antineoplastic chemotherapy
CPT/HCPCS: 80053; 85007; 85025; 85027; 96413; J8501; J8540; J9045; Q0166

== ENCOUNTER 2025-01-11 07:23 | Outpatient (CLI) | payer MEDICAID, SELFPAY ==
--- OUTSIDE RECORDS SUMMARY | 2025-01-11 07:25 | XMS_ITS | Clinical Summary ---
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
--- OUTSIDE RECORDS SUMMARY | 2025-01-11 07:25 | XMS_ITS | Clinical Summary ---
Author Organization [facility] Address [address] [place] [address] Care Team Providers Care Press Tender [employer] Name Role Phone Unavailable Primary Care Provider [...] 2017 UKY-Zoster Vaccines (1 of 2) 2017 [id number] Vaccine (1 - 20 24-25 season) 2024 [...]
--- OUTSIDE RECORDS SUMMARY | 2025-01-11 07:25 | XMS_ITS | Referral Summary ---
Author Organization [employer] ([place], [place], [place], [place]) Address [address] [place] [address] Care Team Providers Care Pr Manager Name Role Phone Unavailable Primary Care Provider Unavailabl e Encounters Date Type Department Care Team Description 11/04/2024 7:48 AM EDT - 11/04/2024 11:59 PM EDT Hospital Encounter [facility] PET CT - [address] [place] [address] Dae Rowe MD Malignant neoplasm of pharynx, [...] Insurance [facility] MEDICAID
--- OUTSIDE RECORDS SUMMARY | 2025-01-11 07:25 | XMS_ITS | Data Portability ---
Author Organization [place] - [facility] & PÉREZ Mccallum ADMIN Address [address] [place] [id number] Assessment No assessment recorded. Plan of Treatment Reminders Order Date Submit Date Provider Last Modified By Organization Details Last Modified Time Details Appointments DAILY TREATMEN T 2024 02:15P M Brittany Treatment Not available Not available Not available DAILY TREATMEN T 2024 02:15P M Brittany Treatment Not available Not available Not available ON TREATMEN T VISIT 2024 02:30P M BINA CARDENAS MD Not available Not available Not available DAILY TREATMEN T 2024 11:00A M Brittany Treatment Not available Not available Not available DAILY TREATMEN T 2024 02:15P M Brittany Treatment Not available Not available Not available DAILY TREATMEN T 2024 02:15P M Brittany Treatment Not available Not available Not available DAILY TREATMEN T 2024 02:15P M Brittany Treatment Not available Not available Not available DAILY TREATMEN T 2024 02:15P M Brittany Treatment Not available Not available Not available ON TREATMEN T VISIT 2024 02:30P M BINA CARDENAS MD Not available Not available Not available DAILY TREATMEN T 2024 11:00A M Brittany Treatment Not available Not available Not available DAILY TREATMEN T 2024 02:15P M Brittany Treatment Not available Not available Not available DAILY TREATMEN T 2024 02:15P M Brittany Treatment Not available Not available Not available DAILY TREATMEN T 2024 02:15P M Brittany Treatment Not available Not available Not available DAILY TREATMEN T 2024 02:15P M Brittany Treatment Not available Not available Not available DAILY TREATMEN T 2024 11:00A M Brittany Treatment Not available Not available Not available Lab None recorded . Referral None recorded . Procedures None recorded . Surgeries None recorded . Imaging None recorded . Medication Orders None recorded . Patient TargetsNo targets recorded. Patient Instructions Encounter Date Encounter Id Patient Instructions Last Modified By Organization Details Last Modified Time 01/01/2022 [id number] Was able to remove cerumen from the [...] for routine cleaning or sooner if needed. [email or web address] Not available 01/01/2022 09:15:23 07/16/2022 [id number] Mr. Gregorio left tympanic membrane perforation has apparently healed in a monomeric fashion. It has been over 3 years since we have done a hearing test and would like to get that scheduled at his earliest convenience. Not available 07/16/2022 08:54:25 07/30/2022 [id number] 1-Discussed findings with Mr. Gregorio and Dr. Kirsten Brown MD. 2-F/u annually to monitor. [email or web address] Not available 07/30/2022 09:57:25 01/06/2024 [id number] Follow up in 1 year for cerumen cleaning call sooner as needed. Not available 01/06/2024 16:59:09 Reason for Referral None Reported. Results Created Date Observation Date Name Description Value Unit Range Abnormal Flag Note LastModifiedBy Organization Detail LastModifiedTime 07/31/1907/30/2022 audio gram No observ ation record ed. BARCODE Not Available 2022 13:07:28 11/09/1911/04/2024 PET-C T, skull base to mid-t high scan No observ ation record ed. [email or web address] [facility] [address] [place], [place], [address], 11/10/2024 08:06:46 Result Notes None recorded. Problems Name Problem SNOMED Code Status Onset Date Resolution Date Notes Provider Name and Address Organization Details Recorded Time Restless legs syndrome 38392520 Active Cely Wm null, CEDRICK - LPNT - [facility] & 2 15:13:42 Migraine without aura 76584228 Active Cely Wm null, CEDRICK Rebolledo LPNT - [facility] & 2 15:13:42 Chronic frontal sinusitis 27020158 Active Cely Wm null, CEDRICK Rebolledo LPNT - [place] & 2 15:13:42 Dyslipide jamshid 945348066 Active Cely Wm null, CEDRICK LPNT - [place] & 2 15:13:42 Bilateral tympanosc lerosis 49591598066 593147 Active Cely Wm null, CEDRICK Rebolledo LPNT - [facility] & 2 15:13:42 Migraine without aura, not refractor y 146073634 Active Cely Wm null, CEDRICK LPNT [facility] & 2 15:13:42 Deviated nasal septum 752405350 Active Cely Wm null, CEDRICK Rebolledo LPNT - & 2 15:13:42 Dysfuncti on of left eustachia n tube 92580129022 57347 Active Cely Wm null, [place] - LPNT - [facility] & 2 15:13:42 Dysfuncti on of eustachia n tube 54095460 Active Cely Wm null, CEDRICK DIONICIONT [facility] & 2 15:13:42 Backache 640350509 Active Cely Wm null, [place]EDR[place] - LPNT - [place] & 2 15:13:42 Asymmetri trent sensorine ural hearing loss 705375754 Active Cely Wm null, CEDRICK - LPNT - [place] & 2 15:13:42 Disorder of thyroid gland 55344099 Active Cely Wm null, [place] - [facility]NT - [place] & 2 15:13:42 Central perforati on of tympanic membrane 38283810 Active Cely Wm null, [place] - LPNT - [facility] & 2 15:13:42 Perforati on of tympanic membrane 19819469 Active Cely Wm null, CEDRICK Rebolledo LPNT - [facility] & 2 15:13:42 Counselin g about tobacco use Active Cely Wm null, CEDRICK Rebolledo LPNT - [place] & [place] 2 15:13:42 Chronic pain 78320733 Active Cely Wm null, CEDRICK Rebolledo LPNT - [place] & [place] 2 15:13:42 Hand cramps 168586867 Active Cely Wm null, CEDRICK Rebolledo LPNT - [place] & [place] 2 15:13:42 Gastritis 8350236 Active Cely Wm null, CEDRICK Rebolledo LPNT - & 2 15:13:42 Acute back pain with sciatica 802104170 Active Cely Wm null, CEDRICK Rebolledo LPNT [facility] & 2 15:13:42 Hearing loss of left ear 171401362 Active Cely Wm null, CEDRICK Rebolledo LPNT & 2 15:13:42 Chronic maxillary sinusitis 91582560 Active Cely Wm null, CEDRICK Rebolledo NT [facility] & 2 15:13:42 Mixed hyperlipi demia 025019690 Active Cely Wm null, CEDRCIK Rebolledo NT & [place] 2 15:13:42 Lesion of penis 544537376 Active Cely Wm null, CEDRICK Rebolledo LPNT - & [place] 2 15:13:42 Prediabet es 533891079 Active Cely Wm null, CEDRICK Rebolledo LPNT - [place] & [place] 2 15:13:42 Chest pain 23018592 Active Cely Wm null, CEDRICK Rebolledo LPNT - [place] & [place] 2 15:13:42 Recurrent major depressiv e episodes, moderate 245990625 Active Cely Wm null, CEDRICK Rebolledo LPNT - & [place] 2 15:13:42 Essential hypertens ion 38305635 Active Cely Wm null, [place] - LPNT - y & [place] 2 15:13:42 Refractor y migraine without aura 588366983 Active Cely Wm null, [place] - [facility] - [place] & [place] 2 15:13:42 Nasal obstructi on 979294621 Active Cely Wm null[place] - [facility] - & [place] 2 15:13:42 Refractor y migraine 620352534 Active Cely Wm null, [place] - [facility] - & [place] 2 15:13:42 Impacted cerumen in left ear 06229322981 74565 Active Cely Wm null, [place] - LP[facility] - & [place] 2 15:13:42 Allergic rhinitis 92928974 Active Cely Wm null, [place] - LP[facility] - & [place] 2 15:13:42 Acute maxillary sinusitis 55386540 Active Cely Wm null, [place] - [facility] - & [place] 2 15:13:42 Sciatica 05818369 Active Cely Wm null, [place] - LP[place] - & 2 15:13:42 Headache disorder 165145474 Active Cely Wm [place] - [facility] - & [place] 2 15:13:42 Acute upper respirato ry infection 45154674 Active Cely Wm null, [place] - [facility] - & [place] 2 15:13:42 Hiatal hernia 42775992 Active Cely Wm null, [place] - [facility] - [place] & [place] 2 15:13:42 Chronic rhinitis 43151685 Active Cely Wm [place] - [facility] - & [place] 2 15:13:42 Esophagit is 33642267 Active Cely Wm null, [place] - [facility] - [place] & [place] 2 15:13:42 Slow transit constipat ion 93005090 Active Cely Wm null[place] - LPNT - y & 2 15:13:42 Chronic obstructi ve pulmonary disease 00016805 Active Cely Wm null, CEDRICK Rebolledo LPNT - & 2 15:13:42 Unilatera l mixed conductiv e and sensorine ural hearing loss with unrestric gissell hearing on the contralat eral side Active Cely Wm null, CEDRICK Rebolledo LPNT - & [place] 2 15:13:42 Tobacco dependenc e syndrome 51352096 Active Cely Wm null, [place] - LPNT - & [place] 2 15:13:42 Atrophic flaccid tympanic membrane 66933565 Active Cely Wm null, [place] - [facility]NT - [place] & 2 15:13:43 Tobacco user 377701939 Active Cely Wm null, CEDRICK Rebolledo LPNT - & [place] 2 15:13:43 Fistula of middle ear 960769720 Active Cely Wm null, [place] - LPNT - & 2 15:13:43 Migraine 52599711 Active Cely Wm null, CEDRICK Rebolledo LPNT - & 2 15:13:43 Insomnia 610381707 Active Cely Wm null, CEDRICK Rebolledo LPNT - & 2 15:13:43 Sensorine ural hearing loss 00739354 Active Cely Wm null, [place] - LPNT - & 2 15:13:43 Gastroeso phageal reflux disease 195136983 Active Cely Wm null, [place] - LPNT - & 2 15:13:43 Acute exacerbat ion of chronic obstructi ve pulmonary disease 921988165 Active Cely Wm null, [place] - LPNT - & 2 15:13:43 Hyperlipi demia 52875413 Active Cely Wm null, [place] - [facility]NT - & [place] 2 15:13:43 Nasal deviation 015403206 Active Cely Wm null, [place] - [facility] - [place] & [place] 2 15:13:43 Gastroeso phageal reflux disease without esophagit is 783963891 Active Cely Wm null, CEDRICK ORTEZ [facility] & [place] 2 15:13:43 Obstructi ve sleep apnea syndrome 10062485 Active Cely Wm null, CEDRICK PÉREZ [facility] & [place] 2 15:13:43 Anxiety 82582739 Active Cely Wm null, CEDRICK PÉREZ [facility] & [place] 2 15:13:43 Sensorine ural hearing loss of bilateral ears 594837830 Active Cely Wm null, CEDRICK PÉREZ [facility] & [place] 2 15:13:43 Chronic ethmoidal sinusitis 50902922 Active Cely Wm null, CEDRICK PÉREZ [facility] & [place] 2 15:13:43 Constipat ion 33575338 Active Cely Wm null, CEDRICK PÉREZ [facility] & [place] 2 15:13:43 Nasal congestio n 04422759 [facility] null[facility] & [place] 2 15:13:43 Mixed conductiv e and sensorine ural hearing loss of left ear 58687177900 107 Active 2017 ICD-10: H90.A32 - Mixed conductiv e and sensorine ural hearing loss, unilatera l, left ear with restricte d hearing on the contralat eral side Not Available [facility] 2 11:43:30 Notes:Some problems listed i n Document: #[id number] could not be added to this patient's chart. Please review this document and add these problems to the patient's chart manually as needed. Problem Notes Documentation Provider Name and Address Organization Details Recorded Time Intermission Coordinator Consult Note : Pt retuned SW call to f/u on SW role and any psychosocial needs. Pt reported that he needed assistance with getting a gas card. SW educated pt about [facility] and offered to complet the [facility] application for pt. Pt reported that he would like for SW to complete application and sumbit it to [facility] for gas cards. SW provided contact card and encouraged pt to consult should additional needs arise. SW communicated support ongoing. Shelley Gaxiola CEDRICK acosta LPNT [facility] & [place] 11/14/2024 09:22:37 Intermission Coordinator Consult Note : SW met w/ pt during radiation appt on 01/05/2025. SW provided [facility] card. Pt voiced appreciation. SW inquired about futher needs. Pt declined. SW encouraged pt to consult prn. Vonnie Almanzar CEDRICK acosta LPNT [facility] & [place] 01/06/2025 08:29:12 Procedures Surgical History Date Name Laterality Status Provider Name and Address Organization Details Recorded Time 01/02/20 Cerumen removal with microscope completed Tyson Roberts CEDRICK ORTEZ [facility] & [place] 01/01/2022 09:14:49 hernia repair completed Rachell Rebolledo LPNT [facility] & [place] 01/01/2022 09:03:46 cardiac catheterization completed Rachell Rebolledo LPNT [facility] & [place] 01/01/2022 09:04:01 PE Tubes completed Rachell Rebolledo LPNT [facility] & [place] 01/01/2022 09:04:09 colonoscopy completed Rachell PHILIP - LPNT [facility] & [place] 01/01/2022 09:04:16 Imaging Results None recorded. Procedure Notes None recorded. Medical Equipment None Reported. Allergies Allergen ID Allergen Name Allergen Category Reaction Reaction Severity Criticality Documentation Date Start Date Code Code System Note Provider Name and Address Organization Details Recorded Time 2485 penicilli n G Not available rash Not available Not available 12/19/2021 7980 RxNorm Cely acosta, CEDRICK - LPNT [facility] & [place] 15:13:41 Medications Name Sig Start Date Stop Date Status Note LastModified by Organization Details LastModified Time Magic Mouthwash place spoonful in back of throat and swallow to coat back of throat and esophagus 5x daily before meals. 2024 active Not Available Not Available Not Avai lable fluconazole 100 mg tablet Take 1 tablet every day by oral route for 10 days. active Not Available Not Available No t Available metformin 500 mg tablet active Not Available Not Available Not Available nystatin 100,000 unit/mL oral suspension Take 5 mL 4 times a day by oral route. active Not Available Not Available No t Available trazodone 50 mg tablet active Not [...] active Not Available Not Available Not Available morphine 30 mg immediate release tablet Take 1 tablet every 8 hours by oral route for 30 days. 2024 active Not Available Not Available Not Avai lable Lasix 20 mg tablet 1 {tablet} by oral route. active Not Available Not Available No t Available montelukast 10 mg tablet active Not Available Not Available Not Available morphine 15 mg immediate release tablet Take 1 tablet every 8 hours by oral route for 30 days. 2024 active Not Available Not Available Not Avai lable hydroxyzine HCl 10 mg tablet active Not [...] active Not Available Not Available Not Available oxycodone 5 mg tablet Take 1 tablet every 12 hours by oral route for 10 days. 2024 active Not Available Not Available Not Avai lable ezetimibe 10 mg tablet active Not Available Not Available Not Available cyclobenzap rine 5 mg tablet active Not Available Not Available Not Available acyclovir 5 % topical cream APPLY TO THE AFFECTED AREA(S) BY TOPICAL ROUTE 5 TIMES PER DAY 2024 active Not Available Not Available Not Avai lable rosuvastati n 20 mg tablet active Not [...] Not Available Not Available No t Available baclofen 5 mg tablet Take 1 tablet 3 times a day by oral route for 5 days. 01/03 completed Not Available Not Available Not Available Aimovig Autoinjecto r 140 mg/mL subcutaneou s auto-inject or active Not Available Not Available Not Available Vitals Date Recorded Body height Body mass index (BMI) Body weight Body temperature Heart rate Systolic And Diastolic Provider Name and Address Organization Details Last Updated DateTime 3 191.77 cm 23.9 kg/m2 00905.9 2 g 96.9 [degF] 62 /min 128/60 mm[Hg] [facility] & [place] 3 08:21:21 Date Recorded Body height Body mass index (BMI) Body weight Body temperature Heart rate Systolic And Diastolic Provider Name and Address Organization Details Last Updated DateTime 2 191.77 cm 22.9 kg/m2 41206.4 6 g 96.9 [degF] 64 /min 142/93 mm[Hg] [facility] & [place] 2 09:01:56 Date Recorded Body height Body mass index (BMI) Body weight Body temperature Provider Name and Address Organization Details Last Updated DateTime 01/06/2024 191.77 cm 25.9 kg/m2 86141.4 g 97 [degF] [facility] & [place] 01/06/2024 13:57:42 Social History None recorded. Functional Status None recorded. Mental Status None recorded. Family History Nothing Reported. Medical History Condition Response Emphysema N Depression Y Glaucoma N Anesthesia Complications N Anxiety Disorder N Arthritis N Hearing Loss Y Acid Reflux (GERD) N Cancer N Stroke N Fibromyalgia N Headaches Y Speech Delay N Kidney Disease N Allergies/Hayfever N Heart Problems N Heart Conditions N Migraines N Thyroid Problems N Developmental Delay N Anemia N Immune System Disorder N Heart Attack ([place]) N Diabetes N Bleeding Disorder N Tuberculosis N Hyperlipidemia Y Asthma N Sleep Disorder N GERD/Reflux N Heart Disease N Hypertension N Immunizations Vaccine Type Date Status Note Provider Nam e and Address Organization Details Recorded Time Influenza, split virus, trivalent, preservative 5 completed Cely Wm null, [place] - [facility] & [place] 12/19/2021 15:13:43 Influenza, split virus, trivalent, PF 7 completed Cely Wm null, [place] - [facility] [facility] & [place] 12/19/2021 15:13:43 Influenza, MDCK, quadrivalent, PF 8 completed Cely Wm null, [place] - LPNT [facility] & [place] 12/19/2021 15:13:43 Influenza, MDCK, quadrivalent, PF 8 completed Not Available [facility] 12/23/2021 10:30:57 Influenza, split virus, trivalent, preservative 5 completed Not Available [facility] 12/23/2021 10:30:57 Influenza, split virus, trivalent, PF 7 completed Not Available [facility] 12/23/2021 10:30:57 Past Encounters Encounter ID Performer Location Encounter Start Date Encounter Closed Date Diagnosis/Indication Diagnosis SNOMED-CT Code Diagnosis ICD10 Code Diagnosis IMO Codes Diagnosis Note [id number] Kirsten Brown MD [facility] [place] [phone] 01/01/2022 08:51:01 01/01/2022 09:11:12 Impacted cerumen in left ear 2458720282 579681 H61.22 [id number] Kirsten Brown MD [facility] [place] [id number] 07/16/2022 08:16:26 07/16/2022 08:43:32 Central perforation of tympanic membrane 02893080 H72.02 Perforatio n on the left has closed. No cerumen seen. Will have him get an audiogram seeing as though it has been over three years since the last one. I will see him back as needed. Asymmetric al sensorineural hearing loss 179982208 H90.5 [id number] DAR ALY [facility] [facility], [place] [address] 07/30/2022 09:45:16 07/30/2022 09:57:45 Sensorineural hearing loss 01936798 H90.3 [id number] Kirsten Brown MD [facility] [facility], [facility] [place] [address] 01/06/2024 13:19:06 01/06/2024 14:15:02 Bilateral tympanosclerosis 9840363259 5571258 H74.03 Healed per foration of ear drum 15556907 Z86.69 Tobacco de pendence syndrome 84115680 F17.200 Health Concerns Section Related Observation LastModified by Organization Detai ls LastModified Time None Recorded Concern Status LastModified by Organization Details LastModified Time None Recorded Advance Directives Directive None Recorded Payers Insurance Date Sequence Insurance Name Policy Number Policy Nguyễn Covered Member ID Nguyễn Member ID Guarantor Name 01/05/2025 1 [facility] (MEDICAID REPLACEMENT - HMO[place] Guanaco Gregorio [id number] Guanaco Gregorio 05/18/2019 1 *SELF PAY* Hi karly Gregorio 04/18/2019 UNSPECIFIED REMIT PAYOR Guanaco Gregorio 01/05/2025 1 [facility] (MEDICAID REPLACEMENT - HMO) Guanaco Gregorio [id number] Guanaco Gregorio Notes Date Note Type Note Provider Name and Address Organization Details Recorded Time 01/01/2022 text/html 56yo male returns to the office for regular check up on both ears and cerumen impaction. He has been using sweet oil in both ears. Feels as though his left ear is clogged. Denies any drainage or pain. Kirsten Brown MD [address] [facility], [place], [address], [facility] [place] & [place] 01/01/2022 10:15:46 07/16/2022 text/html ROS as noted in the HPI 56yo male returns to the office for regular check up on both ears and cerumen impaction. He has been using sweet oil in both ears. Several weeks ago he felt his right ear was clogged . Denies any drainage or pain. Feels that hearing may be a little better. Kirsten Brown MD [address], [place], [address], [facility] & [place] 07/16/2022 08:56:53 07/30/2022 text/html ROS as noted in the HPI Mr. Gregorio was seen today for an audiologic evaluation per Dr. Kirsten Brown MD. Mr. Gregorio has long-standing high freq SNHL bilaterally. He has had multiple PE tubes in the LE, however, there is no tube present this date. Otoscopic inspection was unremarkable bilaterally this date. DAR ALY [address], [place], [address], [facility] & [place] 07/30/2022 09:57:40 01/06/2024 text/html ROS as noted in the HPI 07/16/22-56yo male returns to the office for [...] ears. Kirsten Brown MD [address], [place], [address], [facility] & [place] 01/06/2024 16:59:36
--- OUTSIDE RECORDS SUMMARY | 2025-01-11 07:25 | XMS_ITS | Clinical Summary ---
Author Organization [facility] Address [address] [place] [id number] Care Team Providers Care Car Salesperson Name Role Phone Talia Krishna Primary Care [...] ID:[id number] Group ID:[id number] Type:Not on file Address: [place] [id number] Care Teams Car Salesperson Relationship Specialty Start Date End Date Talia Krishna PA PCP - General Physician [employer] Project Manager 07/22/15
--- NOTE | 2025-01-11 08:00 | CA_ITS ---
APPROVED REPORT EXAM: Comprehensive 2D, Doppler, and color-flow Echocardiogram Machine Deicer Element Winder: Katty Johnson CRT Ht: 6 ft 3 in Wt: 219lbs BSA: 2.28 BP: 128/65 mmHg Indications: Chest Pain, Shortness of Breath, currently undergoing chemo. 2D Dimensions LA Volume 40.20 mL LA Volume Index 17.20 mL/m2 (M/F) 16-34 M-Mode Dimensions RVDd 3.05 cm (0.9-2.6) LA Diam 3.75 cm (1.9-4.0) LVDd 4.90 cm (3.5-5.7) LVDs 3.48 cm (3.5-5.7) IVSd 1.63 cm (0.6-1.1) PWd 0.85 cm (0.6-1.1) EF (Teich) 55.50% FS 29.00% EDV (Teich) 112.80 mL ESV (Teich) 50.20 mL LV Diastology E Decel Time 307 (160-240 msec) E/A Ratio 0.60 MED A' 12.40 cm/s LAT A' 13.70 cm/s Aortic Valve AO Peak GR. 4.70 mmHg Mitral Valve MV A Velocity 63.0 (40-130 cm/s) E/A Ratio 0.60 Pulmonary Valve PV Peak Velocity 165.0 (50-150 cm/s) Tricuspid Valve TR P. Velocity 214.00 cm/s RAP Estimate 10.00 mmHg RVSP 28.30 mmHg Left Ventricle The left ventricle is normal size. Left ventricular systolic function is normal. The left ventricular ejection fraction is within the normal range. There is increased left ventricular wall thickness. There is normal LV segmental wall motion. Transmitral Doppler flow pattern suggests impaired LV relaxation. LVEF is 55% Right Ventricle The right ventricle is normal size. The right ventricular systolic function is normal. Atria The left atrium is mildly dilated. The right atrium is mildly dilated. There is no color Doppler evidence of interatrial shunt. Aortic Valve The aortic valve opens well. There is no hemodynamically significant aortic valvular stenosis. No aortic regurgitation is present. Mitral Valve The mitral valve is normal in structure. No evidence of mitral valve stenosis. Trace mitral regurgitation is present. Tricuspid Valve The tricuspid valve leaflets are thin and pliable. Trace tricuspid regurgitation. There is insufficient TR jet to estimate RVSP. Pulmonic Valve The pulmonary valve is grossly normal in structure. Trace pulmonic valve regurgitation is present. Great Vessels The aortic root is normal in size. IVC is normal in size and collapses >50% with inspiration. Pericardium There is no pericardial effusion. Other Information Study Quality: Fair Conclusion Normal biventricular systolic function. Mild biatrial dilation. No significant valvular stenosis or regurgitation. Electronically signed by : Dina Duron MD 01/11/2025 21:23:08
--- NOTE | 2025-01-11 08:45 | CA_ITS ---
FINAL REPORT TECHNIQUE: Color Doppler, duplex Doppler and doty scale sonography of the bilateral neck arterial vasculature was performed. Velocities were measured in the carotid arteries. Stenosis evaluation based on the validated velocity criteria. CLINICAL HISTORY: KECIA, Right neck mass known cancer, currently undergoing chemotherapy. FINDINGS: The peak systolic velocity of the right common carotid artery is 152 cm/s. The peak systolic velocity of the right internal carotid artery is 106 cm/s and end diastolic velocity 44 cm/s. The ICA/CCA ratio is 0.87. A minimal amount of plaque is present. The right external carotid artery is patent. The right vertebral artery is patent with antegrade flow. The peak systolic velocity of the left common carotid artery is 133 cm/s. The peak systolic velocity of the left internal carotid artery is 103 cm/s and end diastolic velocity 43 cm/s. The ICA/CCA ratio is 0.97. A minimal amount of plaque is present. The left external carotid artery is patent.The left vertebral artery is patent with antegrade flow. Ovoid mass in the right neck measuring 3.6 cm in greatest dimension is heterogeneous and hypoechoic, consistent with known malignancy. IMPRESSION: Right neck mass consistent with known malignancy. Less than 50% bilateral carotid stenoses. Bilateral patent vertebral arteries with antegrade flow. If indicated, CTA or MRA could further evaluate. Reviewed, Interpreted and Dictated by Peña Patton MD Transcribed by Janelle Quintero Authenticated and [facility]
== END 2025-01-11 23:59 | disposition home or self-care (01) ==
LOC: RT 07:23
PROVIDERS: PCP Family Medicine; Visit Provider Nurse Practitioner
DX: I65.23 Occlusion and stenosis of bilateral carotid arteries (principal); I51.7 Cardiomegaly; C76.0 Malignant neoplasm of head, face and neck; I25.10 Atherosclerotic heart disease of native coronary artery without angina pectoris; Z79.60 Long term (current) use of unspecified immunomodulators and immunosuppressants
CPT/HCPCS: 93306; 93880

== ENCOUNTER 2025-01-12 09:15 | Outpatient (CLI) | payer MEDICAID, SELFPAY ==
--- OUTSIDE RECORDS SUMMARY | 2025-01-12 09:19 | XMS_ITS | Clinical Summary ---
Author Organization [facility] Address [address] [place] [id number] Care Team Providers Care Laboratory Technician Name Role Phone Talia Krishna Primary Care [...] ID:[id number] Group ID:[id number] Type:Not on file Address: [place] [id number] Care Teams Laboratory Technician Relationship Specialty Start Date End Date Talia Krishna PA PCP - General Physician Dot Compliance Specialist 07/22/15
--- OUTSIDE RECORDS SUMMARY | 2025-01-12 09:19 | XMS_ITS | Clinical Summary ---
Author Organization [facility] Address [address] [place] [address] Care Team Providers Care Sales Expert Home Theater Name Role Phone Unavailable Primary Care Provider [...] 2017 UKY-Zoster Vaccines (1 of 2) 2017 [id number] Vaccine (1 - 20 24-25 season) 2024 [...]
--- OUTSIDE RECORDS SUMMARY | 2025-01-12 09:19 | XMS_ITS | Clinical Summary ---
Author Organization [facility] ([place], [place], [place], [place]) Address [address] [place] [address] Care Team Providers Care Roll Scale Man Name Role Phone Unavailable Primary Care Provider Unavailabl e Encounters Date Type Department Care Team Description 11/04/2024 7:48 AM EDT - 11/04/2024 11:59 PM EDT Hospital Encounter [facility] PET CT - [address] [place] [id number] Dae Rowe MD Malignant neoplasm of pharynx, [...] from Last 3 Months Insurance [facility] MEDICAID
--- OUTSIDE RECORDS SUMMARY | 2025-01-12 09:19 | XMS_ITS | Referral Summary ---
Author Organization [facility] ([place], [place], [place], [place]) Address [address] [place] [address] Care Team Providers Care Mainspring Former Name Role Phone Unavailable Primary Care Provider Unavailabl e Encounters Date Type Department Care Team Description 11/04/2024 7:48 AM EDT - 11/04/2024 11:59 PM EDT Hospital Encounter [facility] PET CT - [address] [place] [address] Dae Rowe MD Malignant neoplasm of pharynx, [...] Resul t from Last 3 Months Insurance [facility] MEDICAID
[2025-01-12 09:37] VITALS: BMI 27.3
[2025-01-12 09:41] LABS: Hematocrit 33.1 % (42.0-52.0); Hemoglobin 11.4 g/dL (14.1-18.0); Immature Granulocytes % 0.3 %; Mean Corpuscular HGB Conc 34.4 g/dL (31.8-35.4); Mean Corpuscular Hemoglobin 33.3 pg (27.0-31.2); Mean Corpuscular Volume 96.8 fl (80-94); Nucleated Red Blood Cells % 0 %; Platelet Count 159 K/mm3 (142-424); Red Blood Count 3.42 M/mm3 (4.60-6.20); Red Cell Distribution Width-SD 45.0 fL; White Blood Count 3.9 K/mm3 (4.8-10.8)
[2025-01-12 09:50] LABS: Alanine Aminotransferase 25 U/L (12-78); Albumin Level 3.7 g/dl (3.5-5.0); Albumin/Globulin Ratio 1.5 (1.1-1.8); Alkaline Phosphatase 95 U/L (38-126); Anion Gap 10.5 mEq/L (5-15); Aspartate Amino Transferase 17 U/L (17-59); Bilirubin,Total 0.8 mg/dl (0.2-1.3); Blood Urea Nitrogen 10 mg/dl (9-20); Calcium 9.1 mg/dl (8.4-10.2); Carbon Dioxide 31 mmol/L (22.0-30.0); Chloride 100 mmol/L (98-107); Creatinine Clearance Estimated 143 mL/min (50-200); Creatinine,Serum 0.80 mg/dl (0.66-1.25); Estimated Glomerular Filt Rate 100 ml/min (>60); GFR (African American) 121 ML/MIN (>60); Globulin 2.4 g/dL (1.3-3.2); Glucose 165 mg/dl (74-100); Potassium 4.5 mmoL/L (3.5-5.1); Sodium 137 mmol/L (136-145); Total Protein,Serum 6.1 g/dl (6.3-8.2)
[2025-01-12] MEDS: GRANISETRON 1 MG 2 MG PO (10:03)
[2025-01-12] MEDS: DEXAMETHASONE 4MG TABLET 12 MG (10:04)
[2025-01-12] MEDS: APREPITANT 125MG/80MG TRIFOLD PACK 1 PACKET PO (10:04)
[2025-01-12 10:33] LABS: RBC Morphology Normal; Total Cells Counted 100
[2025-01-12 10:40] VITALS: BP 112/67; PULSE 80; RESP 18; O2SAT 96
[2025-01-12] MEDS: CARBOplatin 150 MG in 0.9 % SODIUM CHLORIDE 100 ML 230 MG IV (10:40)
[2025-01-12 11:48] VITALS: BP 122/77; PULSE 79; RESP 18; O2SAT 96
== END 2025-01-12 23:59 | disposition home or self-care (01) ==
PROVIDERS: PCP Family Medicine; Visit Provider Internal Medicine Medical Oncology
DX: C01 Malignant neoplasm of base of tongue (principal); Z51.11 Encounter for antineoplastic chemotherapy
CPT/HCPCS: 80053; 85007; 85025; 85027; 96413; J8501; J8540; J9045; Q0166

== ENCOUNTER 2025-01-19 08:52 | Outpatient (CLI) | payer MEDICAID, SELFPAY ==
[2025-01-19 08:55] VITALS: BMI 27.6
[2025-01-19 09:10] LABS: Hematocrit 35.8 % (42.0-52.0); Hemoglobin 12.4 g/dL (14.1-18.0); Immature Granulocytes % 0.6 %; Mean Corpuscular HGB Conc 34.6 g/dL (31.8-35.4); Mean Corpuscular Hemoglobin 33.6 pg (27.0-31.2); Mean Corpuscular Volume 97.0 fl (80-94); Nucleated Red Blood Cells % 0 %; Platelet Count 187 K/mm3 (142-424); Red Blood Count 3.69 M/mm3 (4.60-6.20); Red Cell Distribution Width-SD 45.4 fL; White Blood Count 3.4 K/mm3 (4.8-10.8)
[2025-01-19 10:14] LABS: RBC Morphology Normal; Total Cells Counted 100
[2025-01-19 10:29] LABS: Alanine Aminotransferase 28 U/L (12-78); Albumin Level 3.9 g/dl (3.5-5.0); Albumin/Globulin Ratio 1.6 (1.1-1.8); Alkaline Phosphatase 107 U/L (38-126); Anion Gap 14.5 mEq/L (5-15); Aspartate Amino Transferase 24 U/L (17-59); Bilirubin,Total 1.0 mg/dl (0.2-1.3); Blood Urea Nitrogen 14 mg/dl (9-20); Calcium 8.9 mg/dl (8.4-10.2); Carbon Dioxide 28 mmol/L (22.0-30.0); Chloride 100 mmol/L (98-107); Creatinine Clearance Estimated 128 mL/min (50-200); Creatinine,Serum 0.90 mg/dl (0.66-1.25); Estimated Glomerular Filt Rate 87 ml/min (>60); GFR (African American) 105 ML/MIN (>60); Globulin 2.5 g/dL (1.3-3.2); Glucose 147 mg/dl (74-100); Potassium 4.5 mmoL/L (3.5-5.1); Sodium 138 mmol/L (136-145); Total Protein,Serum 6.4 g/dl (6.3-8.2)
[2025-01-19 10:40] VITALS: BP 126/61; PULSE 73; RESP 18; TEMP 36.3; O2SAT 97
[2025-01-19] MEDS: GRANISETRON 1 MG 2 MG PO (10:40)
[2025-01-19] MEDS: APREPITANT 125MG/80MG TRIFOLD PACK 1 PACKET PO (10:40)
[2025-01-19] MEDS: DEXAMETHASONE 4MG TABLET 12 MG PO (10:40)
[2025-01-19] MEDS: SODIUM CHLORIDE 0.9% 10ML FLUSH SYRINGE 10 ML IV (11:13)
[2025-01-19 11:17] VITALS: BP 121/62; PULSE 70; RESP 18; O2SAT 98
[2025-01-19] MEDS: CARBOplatin 150 MG in 0.9 % SODIUM CHLORIDE 100 ML 230 MG IV (11:17)
[2025-01-19 11:57] VITALS: BP 128/72; PULSE 78; RESP 18; O2SAT 98
== END 2025-01-19 23:59 | disposition home or self-care (01) ==
LOC: INF 08:54
PROVIDERS: PCP Family Medicine; Visit Provider Internal Medicine Medical Oncology
DX: C01 Malignant neoplasm of base of tongue (principal); Z51.11 Encounter for antineoplastic chemotherapy
CPT/HCPCS: 80053; 85007; 85025; 85027; 96413; J8540; J9045; Q0166

== ENCOUNTER 2025-01-26 08:26 | Outpatient (CLI) | payer MEDICAID, SELFPAY ==
--- OUTSIDE RECORDS SUMMARY | 2024-12-14 09:30 | XMS_ITS | Continuity of Care Document ---
Author Organization [facility] Phone Care Team Providers Care Rig Operator Name Role Phone SKYLAR BURGER Unavailable BINA CARDENAS Admitting NO, DEFINED P Primary Care Unavailable BINA CARDENAS Primary Attending MEDICATIONS HOME MEDICATIONS Status RXNORM NDC Medication Dose Route Frequency Dates Comments Reported By Updated By Drug Treatment Unknown DISCHARGE MEDICATIONS Status RXNORM NDC Medication Dose Route Frequency Dates Dis pense Data Comments Physician Updated By No Discharge Medication Info rmation Available INPATIENT MEDICATIONS Status RXNORM NDC Medication Dose Route Frequency Rat e Quantity Dates Indication Dispense Data Comments Physician Updated By No Inpatient Medication Info rmation Available SOCIAL HISTORY SOCIAL HISTORY - Smoking Status SNOMED-CT Social History Element Description Effective Dates Offered Cessation Comment Updated By [id number] Smoking Status Unknown If Ever Smoked SOCIAL HISTORY - Gender Sex: Male SOCIAL HISTORY - Status : status i nformation is not available Intention in Next Year: intention information is not available SOCIAL HISTORY - Assessments Code System Description Status Date Value of Assessment Updated By Comment Assessment Information is no t available SOCIAL HISTORY - [place] Affiliation [place] information is not av ailable SOCIAL HISTORY - Legal Sex Legal Sex information is not available SOCIAL HISTORY - Sexual Behavior Sexual Orientation Gender Identity SNOMED-CT Description SNO MED -CT Description Activity Level No of Partners Partner Type UpdatedBy Information is not available SOCIAL HISTORY - Occupation Occupation information is no t available HEALTH CONCERNS Problems Concern Status Health Concern problem infor mation not available. Smoking Status Status Years Used Consumed packs p er day Health Concern smoking histo ry information not available. Family History Concern Status Health Concern family histor y information not available. ENCOUNTERS ENCOUNTER INFORMATION Reason for Visit RADIATION Admission November 16, 2024 4:41:00 PM UTC [facility] [address] [facility] [address] Discharge December 12, 2024 3:59:00 AM UTC DISCHARGED TO HOME OR SELF CARE ENCOUNTER DIAGNOSES Notes information is not jolynn ilable. Code System Diagnosis Onset Date Diagnosis information is not available. 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, UNSPECIFIED [id number] on December 14, 2024 1:29:41 PM UTC C14.0 ICD10 MALIGNANT NEOPLA SM OF PHARYNX, UNSPECIFIED [id number] on December 14, 2024 1:29:41 PM UTC D49.0 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 SYSTEM [id number] on December 14, 2024 1:29:41 PM UTC CARE TEAM Care Rig Operator Role SKYLAR BURGER Referring BINA CARDENAS Admitting DEFINED NO Primary Care BINA CARDENAS Primary Attending CARE TEAM CARE water pollution control technician Role on Team Location Telecom Status Start Date End Rowdy e Updated By NO DEFINED PRIMARY C PCP normal October 27, 2024 6:44:58 PM UTC December 12, 2024 3:59:00 AM [place] [id number] on October 27, 2024 6:44:58 PM [place] JENNYFER MOCK Referring normal October 27, 2024 6:44:58 PM UTC December 12, 2024 3:59:00 AM [place] [id number] on October 27, 2024 6:44:58 PM [facility] RONALD MOCK Attending normal October 27, 2024 6:44:58 PM UTC December 12, 2024 3:59:00 AM [place] [id number] on October 27, 2024 6:44:58 PM [facility] RONALD MOCK Admitting normal October 27, 2024 6:44:58 PM [place] December 12, 2024 3:59:00 AM [facility] [id number] on October 27, 2024 6:44:58 PM [place]
[2025-01-26 08:28] VITALS: BMI 26.1
--- OUTSIDE RECORDS SUMMARY | 2025-01-26 08:36 | XMS_ITS | Clinical Summary ---
Author Organization [facility] [employer] ([place], [place], [place], [place]) Address [address] [place] [address] Care Team Providers Care Family Therapist Name Role Phone Unavailable Primary Care Provider Unavailabl e Encounters Date Type Department Care Team Description 11/04/2024 7:48 AM EDT - 11/04/2024 11:59 PM EDT Hospital Encounter [facility] PET CT - [address] [place] [id number] Dae Rowe MD Malignant neoplasm of pharynx, [...] Resul t from Last 3 Months Insurance [facility] MEDICAID
--- OUTSIDE RECORDS SUMMARY | 2025-01-26 08:36 | XMS_ITS | Referral Summary ---
Author Organization [employer] ([place], [place], [place], [place]) Address [address] [place] [address] Care Team Providers Care Zanjero Name Role Phone Unavailable Primary Care Provider Unavailabl e Encounters Date Type Department Care Team Description 11/04/2024 7:48 AM EDT - 11/04/2024 11:59 PM EDT Hospital Encounter [facility] PET CT - [address] [place] [address] Dae Rowe MD Malignant neoplasm of pharynx, [...] Resul t from Last 3 Months Insurance [facility] MEDICAID
--- OUTSIDE RECORDS SUMMARY | 2025-01-26 08:37 | XMS_ITS | Clinical Summary ---
Author Organization [facility] Address [address] [place] [address] Care Team Providers Care Peoplesoft Administrator Name Role Phone Unavailable Primary Care [...] 2017 UKY-Zoster Vaccines (1 of 2) 2017 [id number] Vaccine (1 - 20 24-25 season) 2024 [...]
--- OUTSIDE RECORDS SUMMARY | 2025-01-26 08:37 | XMS_ITS | Clinical Summary ---
Author Organization [facility] Address [address] [place] [id number] Care Team Providers Care Dope Sprayer Name Role Phone Talia Krishna Primary Care Provider [phone] Allergies Active Allergy Reactions Criticality Noted Date [...] ID:[id number] Group ID:[id number] Type:Not on file Address: [place] [id number] Care Teams Dope Sprayer Relationship Specialty Start Date End Date Talia Krishna PA PCP - General Physician Lap Runner 07/22/15
[2025-01-26 08:39] LABS: Hematocrit 35.6 % (42.0-52.0); Hemoglobin 12.1 g/dL (14.1-18.0); Immature Granulocytes % 0.6 %; Mean Corpuscular HGB Conc 34.0 g/dL (31.8-35.4); Mean Corpuscular Hemoglobin 33.2 pg (27.0-31.2); Mean Corpuscular Volume 97.5 fl (80-94); Nucleated Red Blood Cells % 0 %; Platelet Count 190 K/mm3 (142-424); Red Blood Count 3.65 M/mm3 (4.60-6.20); Red Cell Distribution Width-SD 49.1 fL; White Blood Count 3.6 K/mm3 (4.8-10.8)
[2025-01-26 08:59] LABS: Alanine Aminotransferase 22 U/L (12-78); Albumin Level 4.0 g/dl (3.5-5.0); Albumin/Globulin Ratio 1.6 (1.1-1.8); Alkaline Phosphatase 104 U/L (38-126); Anion Gap 10.8 mEq/L (5-15); Aspartate Amino Transferase 21 U/L (17-59); Bilirubin,Total 1.0 mg/dl (0.2-1.3); Blood Urea Nitrogen 10 mg/dl (9-20); Calcium 8.9 mg/dl (8.4-10.2); Carbon Dioxide 34 mmol/L (22.0-30.0); Chloride 97 mmol/L (98-107); Creatinine Clearance Estimated 128 mL/min (50-200); Creatinine,Serum 0.90 mg/dl (0.66-1.25); Estimated Glomerular Filt Rate 87 ml/min (>60); GFR (African American) 105 ML/MIN (>60); Globulin 2.5 g/dL (1.3-3.2); Glucose 136 mg/dl (74-100); Potassium 3.8 mmoL/L (3.5-5.1); Sodium 138 mmol/L (136-145); Total Protein,Serum 6.5 g/dl (6.3-8.2)
[2025-01-26 10:03] VITALS: BP 114/60; PULSE 76; RESP 20; TEMP 36.4; O2SAT 97
[2025-01-26] MEDS: GRANISETRON 1 MG 2 MG PO (10:03)
[2025-01-26] MEDS: DEXAMETHASONE 4MG TABLET 12 MG PO (10:03)
[2025-01-26] MEDS: APREPITANT 125MG/80MG TRIFOLD PACK 1 PACKET PO (10:03)
[2025-01-26 10:05] LABS: Total Cells Counted 100
[2025-01-26 10:06] LABS: RBC Morphology Normal
[2025-01-26] MEDS: SODIUM CHLORIDE 0.9% 10ML FLUSH SYRINGE 10 ML IV (10:32)
[2025-01-26 10:38] VITALS: BP 115/64; PULSE 72; RESP 20; O2SAT 97
[2025-01-26] MEDS: SODIUM CHLORIDE 0.9% IV (10:38)
[2025-01-26] MEDS: CARBOPLATIN IV (10:38)
[2025-01-26 11:11] VITALS: BP 131/58; PULSE 70; RESP 20; O2SAT 98
== END 2025-01-26 23:59 | disposition home or self-care (01) ==
LOC: INF 08:28
PROVIDERS: PCP Family Medicine; Visit Provider Internal Medicine Medical Oncology
DX: C01 Malignant neoplasm of base of tongue (principal); Z51.11 Encounter for antineoplastic chemotherapy
CPT/HCPCS: 80053; 85007; 85025; 85027; 96413; J7050; J8540; J9045; Q0166

== ENCOUNTER 2025-03-01 12:32 | Outpatient (CLI) | payer MEDICAID, SELFPAY ==
[2025-03-01 12:58] LABS: Blood Urea Nitrogen 14 mg/dl (9-20); Creatinine,Serum 0.80 mg/dl (0.66-1.25); Estimated Glomerular Filt Rate 100 ml/min (>60); GFR (African American) 121 ML/MIN (>60)
--- NOTE | 2025-03-01 13:00 | CT_ITS ---
FINAL REPORT TECHNIQUE: Thin section axial CT images with coronal and sagittal reformats were performed after the administration of IV contrast. Precontrast images were also obtained. This study was performed with techniques to keep radiation doses as low as reasonably achievable (ALARA). Individualized dose reduction techniques using automated exposure control or adjustment of mA and/or kV according to the patient''s size were employed. CLINICAL HISTORY: Head Neck cancer SQUAMOUS CELL CARCINOMA OF TONGUE COMPARISON: CTA neck 09/23/2024 FINDINGS: Again seen is a mass in the midcervical region anterior to the sternocleidomastoid and lateral to the carotid measuring 3.7 x 2.7 cm. This has increased in size since the prior exam and there is new peripheral calcification identified associated with the mass. This is well displayed on images 55-67 of series 3. The asymmetric enlargement at the right base of tongue has improved slightly since the previous exam, well seen on images 57-64 of series 3. IMPRESSION: Significant interval increase in size of mass with change in characteristics with new peripheral calcification. Asymmetric enlargement right base of tongue improved since previous. Reviewed, Interpreted and Dictated by Peña Patton MD Transcribed by Janelle Quintero Authenticated and [facility]
--- OUTSIDE RECORDS SUMMARY | 2025-03-01 13:18 | XMS_ITS | Clinical Summary ---
Author Organization [facility] Address [address] [place] [id number] Care Team Providers Care Ornamental Rail Installer Name Role Phone Talia Krishna Primary Care [...] ID:[id number] Group ID:[id number] Type:Not on file Address: [place] [phone] Care Teams Ornamental Rail Installer Relationship Specialty Start Date End Date Talia Krishna PA PCP - General Physician Senior Gis Analyst 07/22/15
--- OUTSIDE RECORDS SUMMARY | 2025-03-01 13:18 | XMS_ITS | Clinical Summary ---
Author Organization [employer] ([place], [place], [place], [place], [place]) Address [address] [place] [address] Care Team Providers Care Soil Science Teacher Name Role Phone Unavailable Primary Care Provider Unavailabl e Social History Tobacco Use Types Packs/Day Years [...] Td or Tdap) 06/28/2022, 08/07/2005 COVID-19 VACCINE (1 - season) 2024 Influenza Vaccine (#1) 2024 02/18/2018 Insurance [employer] [place] [id number]
--- OUTSIDE RECORDS SUMMARY | 2025-03-01 13:18 | XMS_ITS | Clinical Summary ---
Author Organization [facility] Address [address] [place] [address] Care Team Providers Care Obstetrics Tech Name Role Phone Unavailable Primary Care Provider [...] 2017 UKY-Zoster Vaccines (1 of 2) 2017 KII-[id number]-10 Vaccine ( - 25-26 season) 2024 UKY-Influenza Vaccine (#1) 2024 HPV [...]
--- OUTSIDE RECORDS SUMMARY | 2025-03-01 13:18 | XMS_ITS | Referral Summary ---
Author Organization [employer] ([place], [place], [place], [place], [place]) Address [address] [place] [address] Care Team Providers Care Pipe Manufacture Supervisor Name Role Phone Unavailable Primary Care Provider Unavailabl e Social History Tobacco Use Types Packs/Day Years Used Date Smoking Tobacco: Never Assessed Sex and Gender Information Value Date Recorded Sex Assigned at Not on file Legal Sex Male 5:20 PM CDT Gender Identity Not on file Sexual Orientation Not on file Plan of Treatment Not on file Insurance [facility] MEDICAID
[2025-03-01] MEDS: IOPAMIDOL-370 (76%);100ML BOTTLE 75 ML IV (13:26)
[2025-03-01] MEDS: SODIUM CHLORIDE 0.9% 10ML SYR (RAD ONLY) 10 ML IV (13:26)
== END 2025-03-01 23:59 | disposition home or self-care (01) ==
LOC: RAD 12:32
PROVIDERS: PCP Family Medicine; Visit Provider Internal Medicine Medical Oncology
DX: C01 Malignant neoplasm of base of tongue (principal); C76.0 Malignant neoplasm of head, face and neck
CPT/HCPCS: 36415; 70492; 82565; 84520; Q9967

== ENCOUNTER 2025-03-02 08:23 | Day surgery (SDC) | payer MEDICAID, SELFPAY ==
--- NOTE | 2024-11-11 16:02 | DIET.NUTRFU ---
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 Patient denied any change in appetite or weight loss. He actually feels like he is gaining weight. Offered him milkshake recipes and high calorie handout just in case things change and he was agreeable. Also provided contact information
--- NOTE | 2025-02-24 13:21 | EXP.HP ---
History of Present Illness *Admission Date: 03/02/25 *History of present illness: Mr. Gregorio is a 59-year-old gentleman who is here for diagnostic EGD. He has had occasional heartburn and reflux with some choking. His last EGD was about 5 years ago in [place]. He has been on omeprazole daily and was having breakthrough symptoms. He was placed on Pepcid twice daily by cardiology. He is having intermittent episodes of choking while eating. The examination is deemed medically necessary for diagnostic EGD. The patient has been seen, interviewed and examined prior to the procedure by both myself and the anesthesia provider. [facility] Disclaimer: The information contained in this section may have been updated after the patient was seen, as this information can be updated by other users. Medical History Throat cancer Tympanosclerosis of both ears Deviated septum Squamous cell carcinoma of lymph node History of diabetes mellitus Enlarged lymph nodes Abnormal findings on diagnostic imaging of heart and coronary circulation Encounter for pre-operative cardiovascular clearance Atypical angina Exertional dyspnea Depression Hyperlipidemia Migraines Hypertension Diabetes mellitus Surgical History History of incision and drainage History of colonoscopy Hx of cardiac cath H/O endoscopy History of placement of ear tubes H/O hernia repair H/O right knee surgery Family History Mother Cancer Social History Smoking Status: Former smoker tobacco type: cigarettes packs per day: 1 years smoked: 40 alcohol intake: never substance use type: marijuana current occupational status: disabled Travel in the last 8 weeks?: None household members: children housing: apartment Have you lived/traveled outside US in past 30 days?: No Contact w/someone who lives/traveled outside US past 30 days?: No Exposure to someone with infectious disease in past 14 days?: No Do you have a fever (greater than 100.4 F or 38 C)?: No Have you tested positive for COVID-19?: No Exposed to someone with COVID-19 in past 14 days?: No Do you have a sore throat?: No Do you have a cough?: No Do you have any weakness?: No Do you have any diarrhea?: No Are you experiencing any unusual bleeding?: No Do you have any muscle aches/pain?: No Do you have any abdominal pain?: No Are you experiencing loss of taste or smell?: No Other Medical History Have you received the Flu Vaccine for this season: No Have you received the Pneumonia Vaccine: No Review of Systems Review of Systems Review of systems (narrative): Negative *Cardiovascular Comments: Negative *Gastrointestinal Comments: Negative *Genitourinary Comments: Negative *Musculoskeletal Comments: Negative *Neurologic Comments: Negative Meds Home Medications and Allergies Home Medications ?Medication ?Instructions ?Recorded ?Confirmed ?Type omega-3 fatty acids 500 mg capsule 500 mg PO DAILY 10/04/24 02/28/25 History rosuvastatin 40 mg tablet 40 mg PO DAILY High cholesterol 10/17/24 02/28/25 Rx #30 tabs ranolazine 500 mg tablet,extended 500 mg PO BID #180 tabs 10/26/24 02/28/25 Rx release,12 hr aspirin 81 mg tablet,delayed 81 mg PO DAILY HEART 90 days #90 11/21/24 02/28/25 Rx release (Adult Low Dose Aspirin) tabs acyclovir 5 % topical cream 1 applic topical NEEDED PRN 12/27/24 02/23/25 History infection nystatin 100,000 unit/mL oral 1 ml PO NEEDED PRN oral thrush 12/27/24 02/23/25 History suspension isosorbide mononitrate 60 mg 60 mg PO DAILY #30 tabs 01/24/25 02/28/25 Rx tablet,extended release 24 hr loratadine 10 mg tablet 10 mg PO DAILY 90 days #90 tabs 02/09/25 02/28/25 Rx omeprazole 40 mg capsule,delayed 40 mg PO DAILY 90 days #90 caps 02/09/25 02/28/25 Rx release hydroxyzine HCl 10 mg tablet See Rx Instructions .Route 02/14/25 02/28/25 Rx .COMPLEX #60 tabs metoprolol succinate 50 mg See Rx Instructions .Route 02/23/25 02/28/25 Rx tablet,extended release 24 hr .COMPLEX #45 tabs New Prescriptions to Start Prescriptions: Allergies Allergy/AdvReac Type Severity Reaction Status Date / Time penicillin G Allergy Mild I-RASH Verified 03/02/25 08:50 Exam *Routine HEENT Exam Head: Present normocephalic Eye: Present EOMI and PERRL ENT: Present mucous membranes moist *Routine Neck Exam Neck: Present supple *Routine Respiratory Exam Respiratory: Present CTA bilaterally *Routine Cardiovascular Exam Cardiovascular: Present RRR *Routine Abdominal Exam Abdominal: Present soft and normoactive bowel sounds; Absent tenderness *Routine Rectal Exam Rectal:: deferred *Routine Genitalia Exam Genitalia:: deferred *Routine Extremities Exam Extremities: Absent cyanosis, clubbing or edema *Routine Skin Exam Skin: Present warm; Absent rash *Routine Neurological Exam Neurological: Present alert and oriented X3 Assessment and Plan *Assessment and plan (1) Dysphagia: Status: Acute Category: Medical Code(s): R13.10 - Dysphagia, unspecified (2) Choking: Status: Acute Category: Medical Code(s): T17.308A - Unspecified foreign body in larynx causing other injury, initial encounter (3) History of gastroesophageal reflux (GERD): Status: Acute Category: Medical Code(s): Z87.19 - Personal history of other diseases of the digestive system (4) Squamous cell carcinoma of base of tongue: Status: Acute Category: Medical Code(s): C01 - Malignant neoplasm of base of tongue Plan A/P: 1. Choking/dysphagia with history of GERD and history of squamous cell carcinoma of the base of the tongue is the preprocedural diagnosis. The patient will be anesthetized/sedated using MAC sedation. The patient has been seen and examined. Cardiac and lung assessment prior to the examination is stable. Proceed with planned EGD.
[2025-02-28 14:56] VITALS: BMI 26.1
[2025-03-02] VITALS (7 sets, daily range): BP systolic 107–135; BP diastolic 63–83; PULSE 60–77; RESP 16–18; TEMP 36.3–36.4; O2SAT 95–100
--- NOTE | 2025-03-02 06:57 | P.PCN_ITS ---
[facility] Procedure Note Date: 03/02/25 Time: 10:32 Procedure Note:: Upper Endoscopy Procedure Report: Esophagogastroduodenoscopy with cold biopsies and TTS balloon dilation Endoscopost: Vijay Erwin II, MD Referring Physician: Stewart Santacruz MD Date of Procedure: March 02, 2025 Equipment: Olympus GIF-1100 standard upper endoscope Sedation: MAC sedation Indications: Mr. Gregorio is a 59-year-old gentleman who is here for diagnostic EGD. He has had occasional heartburn and reflux with some choking. His last EGD was about 5 years ago in [place]. He has been on omeprazole daily and was having breakthrough symptoms. He was placed on Pepcid twice daily by cardiology. He is having intermittent episodes of choking while eating. The patient does get some early satiety and intermittent belching. He reports no bloating or chest pain. He reports no nausea and reports that his bowel function is regular. The examination is deemed medically necessary for diagnostic EGD. Procedure: Prior to the procedure, a history and physical exam was performed, and patient's medications and allergies were reviewed. The risks, benefits and alternatives of the sedation and procedure were discussed with the patient. All questions were answered and informed consent was obtained. The patient was brought to the procedure room. Patient identification and proposed procedure were verified by the physician and the nurse. The patient was placed in a left lateral decubitus position and the scope was passed under direct vision. Throughout the procedure, the patient's blood pressure, pulse, and oxygen saturations were monitored continuously. The upper GI endoscopy was accomplished without difficulty. The patient tolerated the procedure well. Findings: The scope was passed directly into the upper esophagus and advanced to the third portion of the duodenum. The post bulbar duodenum, ampulla and duodenal bulb were normal with normal mucosa and conniventes. 2 cold biopsies were taken from the second portion of the duodenum for the disaccharidase assay. 2 cold biopsies were taken from the bulb and first portion of the duodenum to rule out celiac disease. The scope was withdrawn through a normal duodenal bulb and pylorus into the stomach. There was bile reflux with mild linear reactive gastropathy of the antrum. There was some mild chronic gastritis of the proximal stomach. Cold biopsies were taken along the lesser curvature to rule out H. pylori. Upon retroflexion there was a 2 to 3 cm hiatal hernia. The scope was then withdrawn into the esophagus. There was a serrated Z-line and biopsies were taken at the GE junction. There was strong tertiary contractions and evidence of moderate esophageal dysmotility. There was a mid esophageal diverticulum/traction diverticulum. The entire esophagus was dilated to 60 Vietnamese/20 mm with a TTS hydrostatic balloon. There was minimal resistance at the cricopharyngeus. The remainder of the esophageal mucosa was normal. Impression: 1. Nonerosive GERD with moderate esophageal dysmotility, mid esophageal traction diverticulum and 2 to 3 cm hiatal hernia 2. Bile reflux with mild linear antral gastropathy and mild proximal chronic gastritis Plan: I will follow-up the biopsies and disaccharidase assay. We will discuss additional treatment options.
[2025-03-02 08:55] LABS: POC Glucose,Bedside 127 gm/dL (70-110)
[2025-03-02] MEDS: LACTATED RINGERS 1000ML 1,000 ML 50 ML IV (08:59)
--- NOTE | 2025-03-02 09:45 | EXP.ANES.CKL ---
[facility] Disclaimer: The information contained in this section may have been updated after the patient was seen, as this information can be updated by other users. Medical History Throat cancer Tympanosclerosis of both ears Deviated septum Squamous cell carcinoma of lymph node History of diabetes mellitus Enlarged lymph nodes Abnormal findings on diagnostic imaging of heart and coronary circulation Encounter for pre-operative cardiovascular clearance Atypical angina Exertional dyspnea Depression Hyperlipidemia Migraines Hypertension Diabetes mellitus Surgical History History of incision and drainage History of colonoscopy Hx of cardiac cath H/O endoscopy History of placement of ear tubes H/O hernia repair H/O right knee surgery Family History Mother Cancer Social History Smoking Status: Former smoker tobacco type: cigarettes packs per day: 1 years smoked: 40 alcohol intake: never substance use type: marijuana current occupational status: disabled Travel in the last 8 weeks?: None household members: children housing: apartment Have you lived/traveled outside US in past 30 days?: No Contact w/someone who lives/traveled outside US past 30 days?: No Exposure to someone with infectious disease in past 14 days?: No Do you have a fever (greater than 100.4 F or 38 C)?: No Have you tested positive for COVID-19?: No Exposed to someone with COVID-19 in past 14 days?: No Do you have a sore throat?: No Do you have a cough?: No Do you have any weakness?: No Do you have any diarrhea?: No Are you experiencing any unusual bleeding?: No Do you have any muscle aches/pain?: No Do you have any abdominal pain?: No Are you experiencing loss of taste or smell?: No [facility] Anesthesia Checklist Patient Identification Patient Identification: Arm Band Structural Data Admitted From: Home Planned Operative Procedure/s: EGD Consent for Planned Operative Procedure(s) Verified: Yes Verified Documents: Surgical Consent and History and Physical NPO Status Verified Time NPO: 08:00 (sprite) Additional verifications Anesthesia Reactions: No Hx Blood Transfusions: No Blood Transfusion Reaction: No Airway Assessment Mallampati Score:: Class II C-Spine Mobility Assessed: Yes TMJ Mobility Assessed: Yes Neurological Assessment Level of Consciousness: Awake, Alert and Appropriate Anesthesia Plan Anesthesia Risk discussed: Yes Anesthesia Plan: Verified ASA Class: III Anesthesia Type: MAC
[2025-03-07 15:18] LABS: Interpretation Notes (.); Lactase 44.07 (>/= 14.0); Maltase 212.72 (>/= 110.0); Palatinase 17.42 (>/= 8.5); Reference Notes (.); Sucrase 60.17 (>/= 25.0)
== END 2025-03-02 11:30 | disposition home or self-care (01) ==
PROVIDERS: PCP Family Medicine; Visit Provider Internal Medicine Gastroenterology
PROC: 0DJ08ZZ Inspection of Upper Intestinal Tract, Via Natural or Artificial Opening Endoscopic (ICD-10-PCS; CPT 43239; principal; 2025-03-02 10:00)
DX: K29.70 Gastritis, unspecified, without bleeding (principal); K31.89 Other diseases of stomach and duodenum; K44.9 Diaphragmatic hernia without obstruction or gangrene; K21.9 Gastro-esophageal reflux disease without esophagitis; K22.4 Dyskinesia of esophagus; K22.5 Diverticulum of esophagus, acquired; C01 Malignant neoplasm of base of tongue; E78.5 Hyperlipidemia, unspecified; I10 Essential (primary) hypertension; Z79.82 Long term (current) use of aspirin; Z87.891 Personal history of nicotine dependence; Z88.0 Allergy status to penicillin; Z87.19 Personal history of other diseases of the digestive system
CPT/HCPCS: 43239; 43249; 82657; 82962; C1726; J2003; J2704; J7120

== ENCOUNTER 2025-03-07 13:56 | Emergency (ER) | payer MEDICAID, SELFPAY ==
--- NOTE | 2025-03-07 14:03 | ECG_ITS ---
APPROVED REPORT Exam: Resting ECG HR:87 bpm ECG Measurements Heart Rate 87 AXES DC 199 P 45 QRSd 103 QRS 85 QT 370 T 44 QTc 414 Conclusion SINUS RHYTHM NORMAL ECG UNCONFIRMED REPORT Electronically signed by : Ricky Hall, 03/07/2025 15:22:08
--- NOTE | 2025-03-07 14:04 | PC.NURSE ---
FSBS 144
--- OUTSIDE RECORDS SUMMARY | 2025-03-07 14:06 | XMS_ITS | Clinical Summary ---
Author Organization [facility] ([place], [place], [place], [place], [place]) Address [address] [place] [address] Care Team Providers Care Salesperson Sheet Music Name Role Phone Unavailable Primary Care Provider [...] 2024 02/18/2018 Insurance [employer] [place] [id number]
--- OUTSIDE RECORDS SUMMARY | 2025-03-07 14:06 | XMS_ITS | Referral Summary ---
Author Organization [facility] ([place], [place], [place], [place], [place]) Address [address] [place] [address] Care Team Providers Care Eyeglass Frame Truer Name Role Phone Unavailable Primary Care Provider Unavailabl e Social History Tobacco Use Types Packs/Day Years Used Date Smoking Tobacco: Never Assessed Sex and Gender Information Value Date Recorded Sex Assigned at Not on file Legal Sex Male 5:20 PM CDT Gender Identity Not on file Sexual Orientation Not on file Plan of Treatment Not on file Insurance [facility] MEDICAID
--- OUTSIDE RECORDS SUMMARY | 2025-03-07 14:06 | XMS_ITS | Clinical Summary ---
Author Organization [facility] Address [address] [place] [address] Care Team Providers Care Auditor Medical Claims Name Role Phone Unavailable Primary Care Provider [...] 2017 UKY-Zoster Vaccines (1 of 2) 2017 LOC-SXLVN-02 Vaccine ( - 25-26 season) 2024 UKY-Influenza [...] patient's age to complete this [place] [id number]
--- OUTSIDE RECORDS SUMMARY | 2025-03-07 14:06 | XMS_ITS | Clinical Summary ---
Author Organization [facility] Address [address] [place] [id number] Care Team Providers Care Muck Hauler Name Role Phone Talia Krishna Primary Care Provider [phone] Allergies Active Allergy Reactions Criticality Noted Date [...] fective 2013-Present) Name:Guanaco Gregorio Relation to Subscriber:Self Name:Guancao Gregorio Payer ID:[id number] Group ID:[id number] Type:Not on file Address: [place] [phone] Care Teams Muck Hauler Relationship Specialty Start Date End Date Talia Krishna PA PCP - General Physician Brainer 07/22/15
[2025-03-07 14:12] VITALS: BP 119/85; PULSE 86; RESP 15; TEMP 36.8; O2SAT 94; BMI 26.4
--- NOTE | 2025-03-07 14:17 | ED_ITS ---
<Statement entered by Maral Hall MD - 03/11/25 08:54> I was consulted by the GAGNA, and we discussed the complexity of the problems being addressed. I approved the treatment and management plan for this patient's care in the emergency department, thus performing a substantive portion of the medical decision making. Maral Hall MD, KAVITA, FACEP Discharge Plan Disposition Chief Complaint: Syncope Prescriptions Prescriptions: No Action omega-3 fatty acids 500 mg capsule 500 mg PO DAILY nystatin 100,000 unit/mL suspension 1 ml PO NEEDED PRN (Reason: oral thrush) acyclovir 5 % cream 1 applic topical NEEDED PRN (Reason: infection) isosorbide mononitrate 60 mg tablet extended release 24 hr 60 mg PO DAILY Qty: 30 2RF rosuvastatin 40 mg tablet 40 mg PO DAILY Qty: 30 3RF ranolazine 500 mg tablet extended release 12 hr 500 mg PO BID Qty: 180 2RF aspirin [Adult Low Dose Aspirin] 81 mg tablet,delayed release (DR/EC) 81 mg PO DAILY 90 Days Qty: 90 0RF omeprazole 40 mg capsule,delayed release(DR/EC) 40 mg PO DAILY 90 Days Qty: 90 0RF loratadine 10 mg tablet 10 mg PO DAILY 90 Days Qty: 90 0RF hydroxyzine HCl 10 mg tablet See Rx Instructions .ROUTE .COMPLEX Qty: 60 2RF Dose Instruction: TAKE 1 TABLET BY MOUTH EVERY 8 HOURS NEEDED Rx Instructions: TAKE 1 TABLET BY MOUTH EVERY 8 HOURS NEEDED metoprolol succinate 50 mg tablet extended release 24 hr See Rx Instructions .ROUTE .COMPLEX Qty: 45 3RF Dose Instruction: TAKE 1&1/2 TABLETS BY MOUTH EVERY DAY Rx Instructions: TAKE 1&1/2 TABLETS BY MOUTH EVERY DAY Referrals Follow up/Referrals: Stewart Santacruz MD [Primary Care Provider, Internal Medicine] - See instructions Activity Restrictions/Add. Instructions Additional Instructions/Restrictions: Increase fluids and rest. Take meds as directed. Follow-up with PCP as needed. Clinical Impressions Clinical Impression: Vasovagal syncope Instructions Patient Instructions: DI for Syncope in Adults (Fainting) Print Language Print Language: Greenlandic Discharge ED Provider: Maral Hall General Adult HPI General Chief complaint: Syncope Stated complaint: nausea, syncope Time Seen by Provider: 03/07/25 14:02 History of Present Illness HPI narrative: 60-year-old male presents to the ED today for complaint of vagal at the ENT office today. He was having a conversation about having an FNA and he vagal down and started vomiting. Dr. Rowe called and talked to Dr. Hall about this. Patient was sent for fluids and evaluation. Patient is alert and oriented x 4. His is at bedside with him saying that they were just talking to him about the FNA and patient started vomiting and passed out. Patient says he has no symptoms at this time. He just is anxious about the situation. Patient just finished chemo and radiation for cancer. Related Data Home Medications ?Medication ?Instructions ?Recorded ?Confirmed omega-3 fatty acids 500 mg capsule 500 mg PO DAILY 03/07/25 acyclovir 5 % topical cream 1 applic topical NEEDED PRN 12/27/24 03/07/25 infection nystatin 100,000 unit/mL oral 1 ml PO NEEDED PRN or al thrush 12/27/24 03/07/25 suspension Previous Rx's ?Medication ?Instructions ?Recorded rosuvastatin 40 mg tablet 40 mg PO DAILY High choleste rol 10/17/24 #30 tabs ranolazine 500 mg tablet,extended 500 mg PO BID #180 t abs 10/26/24 release,12 hr aspirin 81 mg tablet,delayed 81 mg PO DAILY HEART 90 d ays #90 11/21/24 release (Adult Low Dose Aspirin) tabs isosorbide mononitrate 60 mg 60 mg PO DAILY #30 tabs 1 tablet,extended release 24 hr loratadine 10 mg tablet 10 mg PO DAILY 90 days #90 t abs 02/09/25 omeprazole 40 mg capsule,delayed 40 mg PO DAILY 90 day s #90 caps 02/09/25 release hydroxyzine HCl 10 mg tablet See Rx Instructions .Rout e 02/14/25 .COMPLEX #60 tabs metoprolol succinate 50 mg See Rx Instructions .Route 02/23/25 tablet,extended release 24 hr .COMPLEX #45 tabs Allergies Allergy/AdvReac Type Severity Reaction Status Date / Time penicillin G Allergy Mild I-RASH Verified 03/07/25 13:07 [facility] Disclaimer: The information contained in this section may have been updated after the patient was seen, as this information can be updated by other users. Medical History Throat cancer Tympanosclerosis of both ears Deviated septum Squamous cell carcinoma of lymph node History of diabetes mellitus Enlarged lymph nodes Abnormal findings on diagnostic imaging of heart and coronary circulation Encounter for pre-operative cardiovascular clearance Atypical angina Exertional dyspnea Depression Hyperlipidemia Migraines Hypertension Diabetes mellitus Surgical History History of incision and drainage History of colonoscopy Hx of cardiac cath H/O endoscopy History of placement of ear tubes H/O hernia repair H/O right knee surgery Family History Mother Cancer Social History Smoking Status: Never smoker years smoked: 40 alcohol intake: never substance use type: marijuana current occupational status: disabled Travel in the last 8 weeks?: None household members: children housing: apartment Have you lived/traveled outside US in past 30 days?: No Contact w/someone who lives/traveled outside US past 30 days?: No Exposure to someone with infectious disease in past 14 days?: No Do you have a fever (greater than 100.4 F or 38 C)?: No Have you tested positive for COVID-19?: No Exposed to someone with COVID-19 in past 14 days?: No Do you have a sore throat?: No Do you have a cough?: No Do you have any weakness?: No Do you have any diarrhea?: No Are you experiencing any unusual bleeding?: No Do you have any muscle aches/pain?: No Do you have any abdominal pain?: No Are you experiencing loss of taste or smell?: No Other Medical History Have you received the Flu Vaccine for this season: No Have you received the Pneumonia Vaccine: No ROS Obtained: Yes Systems reviewed as appropriate & no additional complaints except as documented Constitutional Constitutional: Reports as per HPI Physical Exam General General appearance: alert and in no apparent distress Head Head exam: normocephalic Eye Eye exam: Present PERRL and EOMI ENT ENT exam: Present normal oropharynx and mucous membranes moist Neck Neck exam: Present full ROM and trachea midline Respiratory Respiratory exam: Present normal lung sounds bilaterally Cardiovascular Cardiovascular exam: Present regular rate, normal rhythm, normal heart sounds, +S1 and +S2 Abdominal Exam Abdominal exam: Present soft and normal bowel sounds Extremities Exam Extremities exam: Present full ROM and normal capillary refill Neurological Exam Neurological exam: Present alert and oriented X3 Skin Skin exam: Present warm and dry Medical Decision Making Medical Records Screening: Per USPSTF and CDC recommendations, given the prevalence of disease in our region, it is our hospital?s policy to screen for HIV and viral Hepatitis for all patients aged 18 and over and those with ongoing risk factors. [place] Inquiry Pt receiving controlled substance: No [place] was queried for this patient: No Vital Signs: 03/07/25 14:12 Temperature 98.3 F Temperature Source Oral Pulse Rate [Right Radial] 86 Respiratory Rate 15 Blood Pressure [Right Arm] 119/85 Blood Pressure Mean [Right Arm] 96 Blood Pressure Source [Right Arm] Automatic Cuff Blood Pressure Position [Right Arm] Supine 02 Sat by Pulse Oximetry 94 L Oxygen Delivery Method Room Air Lab Data Lab Results 03/07/25 14:05: WBC 4.0 L, RBC 3.65 L, Hgb 12.2 L, Hct 37.4 L, MCV 102.5 H, MCH 33.4 H, MCHC 32.6, RDW 15.5, Plt Count 174, MPV 10.7 H, Neut % (Auto) 90.1 H, L ymph % (Auto) 3.2 L, [place] % (Auto) 5.5, Eos % (Auto) 0.5, Baso % (Auto) 0.2, Neut # (Auto) 3.6, Lymph # (Auto) 0.1 L, [place] # (Auto) 0.2, Eos # (Auto) 0.0, Baso # (Auto) 0.0, Total Counted 100, Neutrophils % (Manual) 87 H, Band Neutrophils % 7.0, Lymphocytes % (Manual) 3 L, Monocytes % (Manual) 3, Platelet Estimate Normal, Polychromasia 1+, Macrocytosis 1+, Sodium 140, Potassium 4.0, Chloride 101, Carbon Dioxide 29, Anion Gap 14.0, BUN 18, Creatinine 1.00, Estimated Creat Clear 110, Estimated GFR 77, Est GFR ( Amer) 93, Glucose 144 H, Calcium 8.6, Magnesium 1.8, Total Bilirubin 1.3, AST 34, ALT 36, Alkaline Phosphatase 75, Troponin I < 0.01, Total Protein 7.0, Albumin 4.3, Globulin 2.7, Albumin/Globulin Ratio 1.6, Lipase 17 L, HCV Ab COLEEN w/Rflx PCR Qn Negative, HIV Ag/Ab Combo Qual Negative 03/07/25 14:05 03/07/25 14:05 Orders (Tests/Meds): ED MEDICATIONS Generic Name Dose Route Start Last Admin Trade Name Freq PRN Reason Stop Dose Admin Sodium Chloride 8 ml 03/07/25 14:13 03/07/25 14:37 Sodium Chloride 0.9% 10ml Vial IV 04/06/25 14:12 8 ml NEEDED PRN Administration dilute pepcid Discontinued Medications Generic Name Dose Route Start Last Admin Trade Name Freq PRN Reason Stop Dose Admin Famotidine 20 mg 03/07/25 14:13 03/07/25 14:36 Famotidine 20mg/2ml Vial IV 03/07/25 14:14 20 mg ONCE ONE Administration Sodium Chloride 1,000 mls @ 999 mls/hr 03/07/25 14:13 03/07/25 15:37 Sod Chlor 0.9% 1000ml Bag IV 03/07/25 15:13 Infused .Q1H1M ONE Infusion Ondansetron HCl 4 mg 03/07/25 14:13 03/07/25 14:37 Ondansetron 4mg/2ml Vial IV 03/07/25 14:14 4 mg ONCE ONE Administration ORDERS Category Date Time Status CBC [Complete Blood Count Auto Diff] Stat Lab 03/07/25 14:05 Completed Comprehensive Metabolic Panel Stat Lab 03/07/25 14:05 Completed HIV Combo Stat Lab 03/07/25 14:05 Completed Hepatitis C Ab Qual. W/ RFX Stat Lab 03/07/25 14:05 Completed Lipase Stat Lab 03/07/25 14:05 Completed Magnesium Stat Lab 03/07/25 14:05 Completed Trop I [Troponin I] Stat Lab 03/07/25 14:05 Completed Troponin I Q3H Lab 03/07/25 17:15 Ordered Troponin I Q3H Lab 03/07/25 20:15 Ordered Medical Decision Narrative: patient is a 60-year-old male presenting to the emergency department for evaluation of vagal and syncope after having a conversation about an FNA with Dr. Rowe. Patient is hemodynamically stable and nontoxic-appearing upon arrival, afebrile. Differential diagnosis includes vasovagal syncope. Workup will be conducted with hematologic labs, specific imaging. Initial inventions include crystalloid bolus. Initial workup reviewed by ut hematologic labs are remarkable for White count was 4 H&H 12.2 and 37.4 troponin was less than 0.01. Electrolytes were normal. Patient is in stable while here in the ED. Patient is safe for discharge home. He can follow back up with Dr. Rowe. Critical Care Critical Care Time Critical Care Time: No
[2025-03-07 14:31] LABS: Hematocrit 37.4 % (42.0-52.0); Hemoglobin 12.2 g/dL (14.1-18.0); Immature Granulocytes % 0.5 %; Mean Corpuscular HGB Conc 32.6 g/dL (31.8-35.4); Mean Corpuscular Hemoglobin 33.4 pg (27.0-31.2); Mean Corpuscular Volume 102.5 fl (80-94); Nucleated Red Blood Cells % 0 %; Platelet Count 174 K/mm3 (142-424); Red Blood Count 3.65 M/mm3 (4.60-6.20); Red Cell Distribution Width-SD 59.1 fL; White Blood Count 4.0 K/mm3 (4.8-10.8)
[2025-03-07 14:32] LABS: Albumin Level 4.3 g/dl (3.5-5.0); Chloride 101 mmol/L (98-107); Sodium 140 mmol/L (136-145)
[2025-03-07 14:33] LABS: Potassium 4.0 mmoL/L (3.5-5.1)
[2025-03-07] MEDS: 0.9 % SODIUM CHLORIDE 1000ML 1,000 ML 999 ML IV (14:33)
[2025-03-07 14:35] LABS: Alanine Aminotransferase 36 U/L (12-78); Albumin/Globulin Ratio 1.6 (1.1-1.8); Alkaline Phosphatase 75 U/L (38-126); Anion Gap 14.0 mEq/L (5-15); Aspartate Amino Transferase 34 U/L (17-59); Bilirubin,Total 1.3 mg/dl (0.2-1.3); Blood Urea Nitrogen 18 mg/dl (9-20); Calcium 8.6 mg/dl (8.4-10.2); Carbon Dioxide 29 mmol/L (22.0-30.0); Creatinine Clearance Estimated 110 mL/min (50-200); Creatinine,Serum 1.00 mg/dl (0.66-1.25); Estimated Glomerular Filt Rate 77 ml/min (>60); GFR (African American) 93 ML/MIN (>60); Globulin 2.7 g/dL (1.3-3.2); Glucose 144 mg/dl (74-100); Lipase 17 U/L (23-300); Total Protein,Serum 7.0 g/dl (6.3-8.2)
[2025-03-07 14:36] LABS: Magnesium 1.8 mg/dl (1.6-2.3)
[2025-03-07] MEDS: FAMOTIDINE 20MG/2ML VIAL 20 MG IV (14:36)
[2025-03-07] MEDS: ONDANSETRON 4MG/2ML VIAL 4 MG IV (14:37)
[2025-03-07] MEDS: SODIUM CHLORIDE 0.9% 10ML VIAL 8 ML IV (14:37)
[2025-03-07 14:49] LABS: Troponin I < 0.01 ng/ml (0.00-0.034)
[2025-03-07 15:01] LABS: Total Cells Counted 100
[2025-03-07 15:02] LABS: Macrocytosis 1+; Polychromasia 1+
[2025-03-07 15:24] LABS: Hepatitis C Ab Qual. W/ RFX NEGATIVE (Negative)
[2025-03-07 16:23] VITALS: BP 104/61; PULSE 75; RESP 16; TEMP 36.8; O2SAT 99
== END 2025-03-07 16:23 | disposition home or self-care (01) ==
PROVIDERS: Nurse Practitioner; Emergency Provider Student in an Organized Health Care Education/Training Program; PCP Family Medicine
DX: R55 Syncope and collapse (principal); R11.2 Nausea with vomiting, unspecified; Z92.21 Personal history of antineoplastic chemotherapy; Z85.819 Personal history of malignant neoplasm of unspecified site of lip, oral cavity, and pharynx
CPT/HCPCS: 80053; 83690; 83735; 84484; 85007; 85025; 85027; 86803; 87389; 93005; 96361; 96374; 96375; 99284; J1308; J2405; J7030

== ENCOUNTER 2025-03-17 06:56 | Outpatient (CLI) | payer MEDICAID, SELFPAY ==
[2025-03-17] VITALS (11 sets, daily range): BP systolic 132–158; BP diastolic 83–98; PULSE 18–76; RESP 16–18; TEMP 36.6; O2SAT 94–100; BMI 27.1
--- OUTSIDE RECORDS SUMMARY | 2025-03-17 06:58 | XMS_ITS | Referral Summary ---
Author Organization [employer] ([place], [place], [place], [place], [place]) Address [address] [place] [id number] Care Team Providers Care Skilled Labor Name Role Phone Unavailable Primary Care Provider Unavailabl e Social History Tobacco Use Types Packs/Day Years Used Date Smoking Tobacco: Never Assessed Sex and Gender Information Value Date Recorded Sex Assigned at Not on file Legal Sex Male 5:20 PM CDT Gender Identity Not on file Sexual Orientation Not on file Plan of Treatment Not on file Insurance [facility] MEDICAID
--- OUTSIDE RECORDS SUMMARY | 2025-03-17 06:58 | XMS_ITS | Clinical Summary ---
Author Organization [facility] Address [address] [place] [id number] Care Team Providers Care Wet Char Conveyor Tender Name Role Phone Talia Krishna Primary Care [...] ID:[id number] Group ID:[id number] Type:Not on file Address: [place] [id number] Care Teams Wet Char Conveyor Tender Relationship Specialty Start Date End Date Talia Krishna PA PCP - General Physician Programming Intern 07/22/15
--- OUTSIDE RECORDS SUMMARY | 2025-03-17 06:58 | XMS_ITS | Clinical Summary ---
Author Organization [facility] Address [address] [place] [address] Care Team Providers Care Magazine Journalist Name Role Phone Unavailable Primary Care Provider [...] 2017 UKY-Zoster Vaccines (1 of 2) 2017 [id number]-02 Vaccine ( - 25-26 season) 2024 [facility]Y-Influenza [...]
--- OUTSIDE RECORDS SUMMARY | 2025-03-17 06:58 | XMS_ITS | Clinical Summary ---
Author Organization [employer] ([place], [place], [place], [place], [place]) Address [address] [place] [id number] Care Team Providers Care Catalyst Plant Supervisor Name Role Phone Unavailable Primary Care [...] 2024 02/18/2018 Insurance [employer] [place] [id number]
[2025-03-17] MEDS: LACTATED RINGERS 1000ML 1,000 ML 50 ML IV (07:48)
--- NOTE | 2025-03-17 08:00 | US_ITS ---
FINAL REPORT CLINICAL HISTORY: .ZENOBIA MEJIAS -- RT NECK MASS FINDINGS: Ultrasound guided right neck mass biopsy. HISTORY: Right neck mass. This mass has been previously biopsied and shown to be squamous cell carcinoma but the mass doees not respond to therapy and request for rebiopsy has been made. PROCEDURE: After informed consent was obtained and a time-out was performed, the patient was prepped and draped in usual sterile fashion over the anterior neck. Utilizing local anesthesia and sterile technique access to the lesion was obtained. 618-gauge core biopsy passes were made. Diagnostic material was confirmed by pathology. The patient received no conscious sedation. The patient tolerated procedure well and left the department in good condition. IMPRESSION: Status post ultrasound guided biopsy of a right neck mass without immediate complication. PROCEDURAL SEDATION: 2 mg of IV Versed and 50 mcg of Fentanyl were administered. Continuous vital sign monitoring was used. An RN was present during the sedation process. Overall sedation time was 15 minutes. Reviewed, Interpreted and Dictated by Linn Love MD Transcribed by RANDELL Roman Authenticated and . [facility]
== END 2025-03-17 09:55 | disposition home or self-care (01) ==
PROVIDERS: PCP Family Medicine; Visit Provider Student in an Organized Health Care Education/Training Program
DX: C77.9 Secondary and unspecified malignant neoplasm of lymph node, unspecified (principal)
CPT/HCPCS: 10005; J2250; J3010; J7120